=== PATIENT | female | born 1980 | race Caucasian/White ===

== ENCOUNTER 2022-06-21 12:10 | Emergency (ER) | payer OTHER, SELFPAY ==
[2022-06-21 12:33] VITALS: BP 139/90; PULSE 90; RESP 16; TEMP 36.3; O2SAT 98
--- NOTE | 2022-06-21 14:40 | ED.URI ---
HPI - URI/Sore Throat General Chief Complaint: Upper Respiratory Infection Stated Complaint: head throat nausea fatigued Time Seen by Provider: 06/21/22 14:40 Source: patient, RN notes reviewed and old records reviewed Mode of arrival: ambulatory Limitations: no limitations History of Present Illness HPI Narrative: 41 year old female who presents to [facility] with complaints of headache, nausea, fatigue, and sore throat which started this morning with generalized body aches. Patient reports that she has had COVID vaccinations and also flu shot. Patient denies any known fevers, chills or sweats, denies any shortness of breath. Patient reports that she has taken Tylenol for her symptoms. Patient also reports that she will need a work note. MD elicited complaint: sore throat and other (headache, nausea, fatigue) Onset (ago): day(s) (this morning) Pain scale (0-10): 6 Able to tolerate fluids by mouth: Yes Treatments prior to arrival: acetaminophen Related Data Home Medications Medication Instructions Recorded Confirmed esomeprazole magnesium 20 mg 20 mg PO DAILY 06/21/22 06/21/22 capsule,delayed release (Nexium) metformin 500 mg tablet,extended 100 mg PO BID 06/21/22 06/21/22 release 24 hr valsartan 160 mg tablet 160 mg PO DAILY 06/21/22 06/21/22 Allergies Allergy/AdvReac Type Severity Reaction Status Date / Time cephalexin Allergy Unknown Rash Verified 06/21/22 14:13 codeine Allergy Unknown Swelling Verified 06/21/22 14:13 Sulfa (Sulfonamide Allergy Unknown Dyspnea / Verified 06/21/22 14:13 Antibiotics) SOB floxacin Allergy Unknown Dyspnea / Uncoded 06/21/22 14:13 SOB Review of Systems Review of Systems: CONSTITUTIONAL: Denies fever, chills, or sweats. EYES: Denies visual changes, redness, or discharge. ENT: Denies rhinorrhea, congestion,positive for sore throat, no otalgia. CARDIOVASCULAR: Denies chest pain, palpitations, or edema. RESPIRATORY: Denies cough or dyspnea. GASTROINTESTINAL: Denies abdominal pain,positive for nausea, no vomiting, or diarrhea. GENITOURINARY: Denies dysuria or hematuria. SKIN: Denies rash or itching. MUSCULOSKELETAL: Denies back pain, joint pain, reports myalgia NEUROLOGIC: Reports headache,no numbness, or weakness. PSYCHIATRIC: Denies anxiety or depression. All systems reviewed & are unremarkable except as noted in HPI and below PMFSH Past Medical History Medical History (Updated 06/26/22 @ 15:53 by Gaby Vargas NP) Arthritis Boils COVID-03 August 2021 Diabetes GERD (gastroesophageal reflux disease) Hypertension Surgical History Surgical History (Updated 06/26/22 @ 15:53 by Gaby Vargas NP) H/O arthroscopic knee surgery Social History Social History (Updated 06/26/22 @ 15:51 by Gaby Vargas NP) Smoking packs per day: 0.75 Smoking cigarettes per day: 15.0 Years smoked: 30 Smoking pack-years: 22.50 Smoking status: Current every day smoker Tobacco type: cigarettes Alcohol intake: unknown Substance use type: does not use Gender identity (if verbalized by the patient): Female Comments At time of signature, agree with nursing past medical, surgical, social and family history. There is no relevant family history pertinent to the presenting complaint Exam Narrative: GENERAL: Well-appearing, well-nourished, and in no acute distress. HEAD: Normocephalic, atraumatic. EYES: PERRLA and EOMI. ENT: Nares clear, clear rhinorrhea no epistaxis. Mucous membranes moist.TM's normal with good light reflex, throat red with no lesions or exudates or tonsil swelling, post nasal drainage noted. NECK: Supple.no lymphadenopathy CHEST: Clear to auscultation. No respiratory distress.SAO2 98% on room air HEART: Regular rate and rhythm. No murmur heard. Normal peripheral pulses. ABDOMEN: Soft, nontender, nondistended, normal active bowel sounds. EXTREMITIES: Normal range of motion. No edema. SKIN: Warm, dry, no rash. NEURO: No focal deficits. Filiberto
== END 2022-06-21 15:10 | disposition home or self-care (01) ==
PROVIDERS: Emergency Provider Registered Nurse; PCP Nurse Practitioner Family
DX: J06.9 Acute upper respiratory infection, unspecified (principal); R11.0 Nausea; I10 Essential (primary) hypertension; K21.9 Gastro-esophageal reflux disease without esophagitis; M19.90 Unspecified osteoarthritis, unspecified site; E11.9 Type 2 diabetes mellitus without complications; Z86.16 Personal history of COVID-19
CPT/HCPCS: 87081; 87804; 99213; G0463

== ENCOUNTER 2023-04-03 09:56 | Emergency (ER) | payer OTHER, SELFPAY ==
--- NOTE | ~2023-04-03 | XR_ITS ---
EXAMINATION: XR hand LT min 3V INDICATION: Left hand pain TECHNIQUE: Three views of the left hand are obtained. COMPARISON: None available FINDINGS: Bone alignment is normal. There is no fracture. There is moderate osteoarthritis at the fir st carpometacarpal joint. The soft tissues are unremarkable. IMPRESSION: 1. No acute osseous abnormality. Reviewed, dictated and finalized at location L.
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
[2023-04-03 10:04] VITALS: BP 139/98; PULSE 89; RESP 20; TEMP 36.7; O2SAT 98
== END 2023-04-03 10:46 | disposition home or self-care (01) ==
PROVIDERS: Emergency Provider Nurse Practitioner; PCP Nurse Practitioner Family
DX: S63.617A Unspecified sprain of left little finger, initial encounter (principal); Y04.8XXA Assault by other bodily force, initial encounter; Y99.0 Civilian activity done for income or pay; M19.90 Unspecified osteoarthritis, unspecified site; E11.9 Type 2 diabetes mellitus without complications; K21.9 Gastro-esophageal reflux disease without esophagitis; I10 Essential (primary) hypertension; Z86.16 Personal history of COVID-19
CPT/HCPCS: 29130; 73130; 99213; G0463

== ENCOUNTER 2024-02-14 10:17 | Outpatient (CLI) | payer OTHER, SELFPAY | END 2024-02-14 10:18 | disposition home or self-care (01) | LOC: ANHBWCAUD 10:17 | PROVIDERS: PCP Nurse Practitioner Family; Visit Provider Nurse Practitioner Family | DX: H93.13 Tinnitus, bilateral (principal); H90.3 Sensorineural hearing loss, bilateral | CPT/HCPCS: 92557; 92567 ==

== ENCOUNTER 2024-10-12 15:04 | Emergency (ER) | payer OTHER, SELFPAY ==
--- OUTSIDE RECORDS SUMMARY | 2024-10-12 15:07 | XMS_ITS | Data Portability ---
Author Organization NILESH LUCIANOLuz Marina Tobias Address [address] [place] [address] Care Team Providers Care Vice President Process Name Role Phone LAVERN, ARGENIS Primary Care Provider [phone] Assessment Encounter Date Assessment Date Assessment LastModified by Organization Details LastModified Time 04/18/2022 04/18/2022 Ms. Silva presented in office today for f/u appointment. The patient states she went to [facility] on [facility]/12/22 with a dislocated left knee. 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 Patient states she returned to work in a wheelchair on April 14 due to her inability to bear weight. The patient states she was referred to ortho by the ER doctor but has yet to see them. The patient is requesting a note to return to full duty at work. To return to full duty, the patient was informed that she would need to be cleared by an geospatial specialist. The patient expressed her understanding. [email or web address] Not available 04/21/2022 14:25:51 07/25/2022 07/25/2022 Ms. Silva presented in office today for f/u appointment. Patient c/o cough, head and chest congestion x 1 week. Patient states she has not been tested for COVID or FLU. Not available 07/25/2022 14:13:07 02/02/2023 02/02/2023 Ms Silva presented in office today for f/u appointment. The patient has a number of complaints, including uti symptoms, bilateral hand pain, and difficulties sleeping. Not available 02/02/2023 15:12:11 11/15/2023 11/15/2023 Ms. Silva presented in office today for follow up appointment. The patient complained of ringing in both ears. Not available 11/27/2023 15:13:12 06/30/2024 06/30/2024 Ms. Silva presents for a follow-up visit with complaints of a persistent rash on the left side of her back for the past 6 months. She reports that the rash is itchy and occasionally arauz. The rash appears as red, patchy areas. The patient denies any known triggers or recent changes in skincare products, detergents, or medications. No associated systemic symptoms such as fever, chills, or fatigue are reported. She has tried adcp-abm-yptmgg r creams with minimal relief. No history of similar rashes elsewhere on the body. No recent travel, insect bites, or exposure to new environments. Not available 07/07/2024 07:56:23 Plan of Treatment Reminders Order Date Submit Date Provider Last Modified By Organization Details Last Modified Time Details Appointments ANY 15 2024 03:45P Amanda PUCKETT NP Not available Not available Not available Lab HbA1c (hemoglo bin A1c), blood 2023 024 [email or web address] [facility], [address] [facility], [facility] [address], [place], [address], 12/07/2023 08:40:44 CMP, serum or plasma 2023 024 FRANCOISE [facility], [address] [facility], [facility], [place], [address], 11/16/2023 07:13:50 lipid panel, serum 2023 024 FRANCOISE [facility], [address] [facility], [address], [place], [address], 11/16/2023 07:13:49 culture, urine 2022 023 FRANCOISE [facility], [address] [facility], [address], [place], [address], 02/04/2023 06:41:22 urinalys is, dipstick 2022 023 FRANCOISE In-Office Order, Internal Use Only DO Not Attach Compendium DO Not Attach Compendium, Do Not Delete/merge, [id number] 02/02/2023 15:14:44 lipid panel, serum 2022 023 FRANCOISE [facility], [address] [facility], [facility], [place], [address], 02/03/2023 03:10:02 HbA1c (hemoglo bin A1c), blood 2022 023 FRANCOISE In-Office Order, Internal Use Only DO Not Attach Compendium DO Not Attach Compendium, Do Not Delete/merge, [id number] 02/02/2023 15:04:16 CMP, serum or plasma 2022 023 FRANCOISE [facility], [address] [facility], [facility], [place], [address], 02/03/2023 03:10:03 HbA1c (hemoglo bin A1c), blood 2022 023 FRANCOISE In-Office Order, Internal Use Only DO Not Attach Compendium DO Not Attach Compendium, Do Not Delete/merge, [id number] 07/25/2022 11:52:44 rapid flu (A+B) 2022 023 FRANCOISE In-Office Order, Internal Use Only DO Not Attach Compendium DO Not Attach Compendium, Do Not Delete/merge, [id number] 07/25/2022 12:34:05 rapid SARS CoV 2 Ag, QL IA, respirat ory specimen 2022 023 FRANCOISE In-Office Order, Internal Use Only DO Not Attach Compendium DO Not Attach Compendium, Do Not Delete/merge, [id number] 07/25/2022 12:34:23 HbA1c (hemoglo bin A1c), blood 2021 022 FRANCOISE In-Office Order, Internal Use Only DO Not Attach Compendium DO Not Attach Compendium, Do Not Delete/merge, [id number] 04/18/2022 12:09:08 Referral dermatol ogist referral 2023 024 FRANCOISE Arreola MD (Dermatology) , [address] [facility] [address], [facility] [address], [place], [address], 10/09/2024 04:09:[address] referral - colonosc opy 2023 024 [email or web address] [place], [address] [facility] , [facility] [address], [place], [address], 07/29/2024 15:05:05 otolaryn gologist referral 2023 024 devan Manuel DO, [address] [facility] , Medical Office [facility], [address], [place], [address], 04/30/2024 11:41:04 audiolog ist referral 2023 024 [facility] (Audiology), [address] [facility] [address], [place], [address], 02/14/2024 12:46:33 endocrin ology referral 2022 023 [place], [address] [facility], [place], [address], 03/12/2023 11:05:12 Procedures None recorded . Surgeries None recorded . Imaging MAMMO, screenin g, digital, bilatera l 2023 024 [email or web address] [facility] (Radiology), [address] [facility] [place], [address], 09/24/2024 10:35:24 XR, hand, 3 or more view 2022 023 [facility], [address] [facility] [place], [address], 02/06/2023 07:30:57 Medication Orders triamcin olone acetonid e 0.1 % topical cream 2023 024 [facility], [address] [place], [address], 06/30/2024 17:30:41 valsarta n 320 mg tablet 2023 024 [facility], [address] [place], [address], 06/30/2024 17:22:26 valsarta n 320 mg tablet 2023 024 [facility], [address] [place], [address], 11/15/2023 16:31:29 atorvast atin 40 mg tablet [address]23 [email or web address] [facility] [address] [place], [address], 11/19/2023 11:30:17 nicotine 21 mg/24 hr daily transder mal patch 2022 [facility]23 [facility] [address] [place], [address], 11/15/2023 15:58:28 hydroxyz ine HCl 50 mg tablet 2022 023 [facility] [address] [place], [address], 11/15/2023 15:58:00 atorvast atin 40 mg tablet 2022 023 [facility] [address] [place], [address], 02/02/2023 15:29:55 Rybelsus 3 mg tablet 2022 023 [facility] [address] [place], [address], 11/15/2023 15:58:49 metformi n ER 500 mg tablet,e xtended release 24 hr 2022 023 [facility] [address] [place], [address], 11/15/2023 15:58:20 valsarta n 320 mg tablet 2022 023 [facility] [address] [place], [address], 02/02/2023 14:54:32 metformi n ER 500 mg tablet,e xtended release 24 hr 2021 022 [facility] [address] [place], [address], 11/15/2023 15:58:20 Januvia 100 mg tablet 2021 022 [facility] [address] [place], [address], 04/21/2022 21:37:57 Patient TargetsNo targets recorded. Patient Instructions Encounter Date Encounter Id Patient Instructions Last Modified By Organization Details Last Modified Time 04/18/2022 [id number] A healthy lifestyle: care instructions Not available 04/21/2022 14:37:12 - Always present to ER or Urgent Care with any progression of/alarming symptoms, significant changes in symptoms or any concerning or urgent matters Not available 04/18/2022 14:15:50 07/25/2022 [id number] viral respirator y infection: care instructions Not available 07/25/2022 11:38:25 - Always present to ER or Urgent Care with any progression of/alarming symptoms, significant changes in symptoms or any concerning or urgent matters Not available 07/25/2022 11:35:57 02/02/2023 [id number] A healthy lifestyle: care instructions Not available 02/02/2023 14:56:41 - Always present to ER or Urgent Care with any progression of/alarming symptoms, significant changes in symptoms or any concerning or urgent matters Not available 02/02/2023 14:34:58 11/15/2023 [id number] A healthy lifestyle: care instructions Not available 11/15/2023 16:32:03 - Always present to ER or Urgent Care with any progression of/alarming symptoms, significant changes in symptoms or any concerning or urgent matters Not available 11/15/2023 16:16:12 06/30/2024 [id number] A healthy lifestyle: care instructions Not available 06/30/2024 17:30:39 - Always present to ER or Urgent Care with any progression of/alarming symptoms, significant changes in symptoms or any concerning or urgent matters Not available 07/07/2024 07:51:32 Reason for Referral Endocrinology Referral for U ncontrolled type 2 diabetes mellitus Referring Physician: Argenis Puckett [facility], Encounter Date: 02/02/2023 Shaper Operator Referral fo r Bilateral tinnitus Referring Physician: Argenis Puckett [facility], Encounter Date: 11/15/2023 Dean Of Admissions Referral for Mao ateral tinnitus Referring Physician: Argenis Puckett [facility], Encounter Date: 11/15/2023 Director Title Referral for Screening for malignant neoplasm of colon colonoscopy Referring Physician: Argenis Puckett [facility], Encounter Date: 06/30/2024 Principal Clerk Typist Referral for L ocalized eruption of skin Referring Physician: Argenis Puckett [facility], Encounter Date: 06/30/2024 Results Created Date Observation Date Name Description Value Unit Range Abnormal Flag Note LastModifiedBy Organization Detail LastModifiedTime 04/18/20 22 04/18/2022 HbA1c (hemo globi n A1c), blood HbA1c 9.6 Not Available In-Office Order Internal Use Only DO Not Attach Compendium DO Not Attach Compendium, Do Not Delete/merge, [id number] 04/18/2022 11:51:49 07/25/19 23 07/25/2022 rapid SARS CoV 2 Ag, QL IA, respi rator y speci men rapid SARS CoV 2 Ag, QL IA, respiratory specimen negati ve Not Available In-Office Order Internal Use Only DO Not Attach Compendium DO Not Attach Compendium, Do Not Delete/merge, [id number] 07/25/2022 11:50:31 07/25/19 23 07/25/2022 rapid flu (A+B) Flu A negati ve Not Available In-Office Order Internal Use Only DO Not Attach Compendium DO Not Attach Compendium, Do Not Delete/merge, [id number] 07/25/2022 11:50:27 07/25/19 23 07/25/2022 rapid flu (A+B) Flu B negati ve Not Available In-Office Order Internal Use Only DO Not Attach Compendium DO Not Attach Compendium, Do Not Delete/merge, [id number] 07/25/2022 11:50:27 07/25/19 23 07/25/2022 HbA1c (hemo globi n A1c), blood HbA1c 10.1 Not Available In-Office Order Internal Use Only DO Not Attach Compendium DO Not Attach Compendium, Do Not Delete/merge, [id number] 07/25/2022 11:21:24 02/03/20 23 02/02/2023 LIPID PANEL cholesterol, total 298.7 mg/dL 140.0- 200.0 above high normal Not Available [facility] Department [address] [place], [address], 02/03/2023 03:10:02 02/03/20 23 02/02/2023 LIPID PANEL triglyceride s 547 mg/dL <=150 above high normal Not Available [facility] Department [address] [place], [address], 02/03/2023 03:10:02 02/03/20 23 02/02/2023 LIPID PANEL HDL cholesterol 29.3 mg/dL 40.0-1 00.0 below low normal Not Available [facility] Department [address] [place], [address], 02/03/2023 03:10:02 02/03/20 23 02/02/2023 LIPID PANEL VLDL cholesterol ivan 109.40 mg/dL 5.00-4 0.00 above high normal Not Available [facility] Department [address] [place], [address], 02/03/2023 03:10:02 02/03/20 23 02/02/2023 LIPID PANEL LDL chol calc ([facility]) 161.3 mg/dL 0.0-99 .0 above high normal Not Available [facility] Department [address] [place], [address], 02/03/2023 03:10:02 02/03/20 23 02/04/2023 URINE CULTU RE, ROUTI NE urine culture, routine Final report Not Available [facility] ([facility]) [address] [facility], [place], [address], 02/04/2023 06:41:22 02/03/20 23 02/04/2023 URINE CULTU RE, ROUTI NE result 1 Commen t Cultu re shows less than 10,00 0 colon y formi ng units of bacte janelle per carola liter of urine . This colon y count is not gener ally consi dered to be clini kenzie signi fican t. Not Available [facility] ([facility]) [address] [facility], [place], [address], 02/04/2023 06:41:22 02/03/20 23 02/02/2023 COMP. METAB OLIC PANEL (14) glucose 215 mg/dL 65-99 above high normal ANION GP 18.0 mmol/ L N OSMOL 277.0 mOsM/ L N REFER ENCE RANGE : 275.0 -301. 0 Not Available [facility] Department [address] [place], [address], 02/03/2023 03:10:03 02/03/20 23 02/02/2023 COMP. METAB OLIC PANEL (14) BUN 15 mg/dL 8-26 Not Available [facility] Department [address] [place], [address], 02/03/2023 03:10:03 02/03/20 23 02/02/2023 COMP. METAB OLIC PANEL (14) creatinine 0.71 mg/dL 0.50-1 .40 Not Available [facility] Department [address] [place], [address], 02/03/2023 03:10:03 02/03/20 23 02/02/2023 COMP. METAB OLIC PANEL (14) eGFR 107 mL/mi n/1.7 3 >=60 Not Available [facility] Department [address] [place], [address], 02/03/2023 03:10:03 02/03/20 23 02/02/2023 COMP. METAB OLIC PANEL (14) BUN/creatini ne ratio 21.0 Not Available [facility] Department [address] [place], [address], 02/03/2023 03:10:03 02/03/20 23 02/02/2023 COMP. METAB OLIC PANEL (14) sodium 135.0 mmol/ L 136.0- 144.0 below low normal Not Available [facility] Department [address] [place], [address], 02/03/2023 03:10:03 02/03/20 23 02/02/2023 COMP. METAB OLIC PANEL (14) potassium 4.3 mmol/ L 3.5-5. 3 Not Available [facility] Department [address] [place], [address], 02/03/2023 03:10:03 02/03/20 23 02/02/2023 COMP. METAB OLIC PANEL (14) chloride 99 mmol/ l 101-11 1 below low normal Not Available [facility] Department [address] [place], [address], 02/03/2023 03:10:03 02/03/20 23 02/02/2023 COMP. METAB OLIC PANEL (14) carbon dioxide, total 21.8 mmol/ L 21.0-3 2.0 Not Available [facility] Department [address] [place] [address], [address], 02/03/2023 03:10:03 02/03/20 23 02/02/2023 COMP. METAB OLIC PANEL (14) calcium 9.7 mg/dL 8.2-10 .0 Not Available [facility] Department [address] [place], [address], 02/03/2023 03:10:03 02/03/20 23 02/02/2023 COMP. METAB OLIC PANEL (14) protein, total 7.4 g/dL 6.7-8. 2 Not Available [facility] Department [address] [place], [address], 02/03/2023 03:10:03 02/03/20 23 02/02/2023 COMP. METAB OLIC PANEL (14) albumin 4.4 g/dL 3.5-5. 5 Not Available [facility] Department [address] [place], [address], 02/03/2023 03:10:03 02/03/20 23 02/02/2023 COMP. METAB OLIC PANEL (14) globulin, total 3.0 g/dL 1.5-4. 5 Not Available [facility] Department [address] [place], [address], 02/03/2023 03:10:03 02/03/20 23 02/02/2023 COMP. METAB OLIC PANEL (14) A/G ratio 1.0 Not Available [facility] Department [address] [place], [address], 02/03/2023 03:10:03 02/03/20 23 02/02/2023 COMP. METAB OLIC PANEL (14) bilirubin, total 0.2 mg/dL 0.0-1. 2 Not Available [facility] Department [address] [place], [address], 02/03/2023 03:10:03 02/03/20 23 02/02/2023 COMP. METAB OLIC PANEL (14) alkaline phosphatase 111.4 IU/L 42.0-1 21.0 Not Available [facility] Department [address] [place], [address], 02/03/2023 03:10:03 02/03/20 23 02/02/2023 COMP. METAB OLIC PANEL (14) AST (SGOT) 34.6 U/L 10.0-4 2.0 Not Available [facility] Department [address] [place], [address], 02/03/2023 03:10:03 02/03/20 23 02/02/2023 COMP. METAB OLIC PANEL (14) ALT (SGPT) 93.3 U/L 10.0-6 0.0 above high normal Not Available [facility] Department [address] [place], [address], 02/03/2023 03:10:03 02/03/20 23 02/02/2023 urina lysis , dipst ick Leukocytes Negati ve Not Available In-Office Order Internal Use Only DO Not Attach Compendium DO Not Attach Compendium, Do Not Delete/merge, 02/02/2023 14:35:16 02/03/20 23 02/02/2023 urina lysis , dipst ick Nitrite negati ve Not Available In-Office Order Internal Use Only DO Not Attach Compendium DO Not Attach Compendium, Do Not Delete/merge, 02/02/2023 14:35:16 02/03/20 23 02/02/2023 urina lysis , dipst ick Urobilinogen 1 Not Available In-Of fice Order Internal Use Only DO Not Attach Compendium DO Not Attach Compendium, Do Not Delete/merge, 02/02/2023 14:35:16 02/03/20 23 02/02/2023 urina lysis , dipst ick Protein Negati ve Not Available In-Office Order Internal Use Only DO Not Attach Compendium DO Not Attach Compendium, Do Not Delete/merge, 02/02/2023 14:35:16 02/03/20 23 02/02/2023 urina lysis , dipst ick pH 6.0 Not Available In-Office Order Internal Use Only DO Not Attach Compendium DO Not Attach Compendium, Do Not Delete/merge, 02/02/2023 14:35:16 02/03/20 23 02/02/2023 urina lysis , dipst ick Blood Negati ve Not Available In-Office Order Internal Use Only DO Not Attach Compendium DO Not Attach Compendium, Do Not Delete/merge, 02/02/2023 14:35:16 02/03/20 23 02/02/2023 urina lysis , dipst ick Specific [place] 1.025 Not Available In-Off ice Order Internal Use Only DO Not Attach Compendium DO Not Attach Compendium, Do Not Delete/merge, 02/02/2023 14:35:16 02/03/20 23 02/02/2023 urina lysis , dipst ick Ketone Trace Not Available In-Office Order Internal Use Only DO Not Attach Compendium DO Not Attach Compendium, Do Not Delete/merge, 02/02/2023 14:35:16 02/03/20 23 02/02/2023 urina lysis , dipst ick Bilirubin Negati ve Not Available In-Office Order Internal Use Only DO Not Attach Compendium DO Not Attach Compendium, Do Not Delete/merge, 02/02/2023 14:35:16 02/03/20 23 02/02/2023 urina lysis , dipst ick Glucose 1000 Not Available In-Office Order Internal Use Only DO Not Attach Compendium DO Not Attach Compendium, Do Not Delete/merge, 02/02/2023 14:35:16 02/03/20 23 02/02/2023 urina lysis , dipst ick Appearance Slight ly Cloudy Not Available In-Office Order Internal Use Only DO Not Attach Compendium DO Not Attach Compendium, Do Not Delete/merge, 02/02/2023 14:35:16 02/03/20 23 02/02/2023 urina lysis , dipst ick Color Dark Yellow Not Available In-Office Order Internal Use Only DO Not Attach Compendium DO Not Attach Compendium, Do Not Delete/merge, [id number] 02/02/2023 14:35:16 02/03/20 23 02/02/2023 HbA1c (hemo globi n A1c), blood HbA1c 10.9 Not Available In-Office Order Internal Use Only DO Not Attach Compendium DO Not Attach Compendium, Do Not Delete/merge, [id number] 02/02/2023 14:30:51 11/15/19 24 11/16/2023 LIPID PANEL cholesterol, total 247 mg/dL 100-19 9 above high normal Not Available [facility] ([facility]) [address] [place], [address], 11/16/2023 07:13:49 11/15/19 24 11/16/2023 LIPID PANEL triglyceride s 398 mg/dL 0-149 above high normal Not Available [facility] ([facility]) [address] [place], [address], 11/16/2023 07:13:49 11/15/19 24 11/16/2023 LIPID PANEL HDL cholesterol 30 mg/dL >39 below low normal Not Available [facility] ([facility]) [address] [place], [address], 11/16/2023 07:13:49 11/15/19 24 11/16/2023 LIPID PANEL VLDL cholesterol ivan 74 mg/dL 5-40 above high normal Not Available [facility] ([facility]) [address] [place], [address], 11/16/2023 07:13:49 11/15/19 24 11/16/2023 LIPID PANEL LDL chol calc ([facility]) 143 mg/dL 0-99 above high normal Not Available [facility] ([facility]) [address] [place], [address], 11/16/2023 07:13:49 11/15/19 24 11/16/2023 COMP. METAB OLIC PANEL (14) glucose 108 mg/dL 70-99 above high normal Not Available [facility] ([facility]) [address] [place], [address], 11/16/2023 07:13:50 11/15/19 24 11/16/2023 COMP. METAB OLIC PANEL (14) BUN 20 mg/dL 6-24 Not Available [facility] ([facility]) [address] [facility] [place], [address], 11/16/2023 07:13:50 11/15/19 24 11/16/2023 COMP. METAB OLIC PANEL (14) creatinine 0.78 mg/dL 0.57-1 .00 Not Available [facility] ([facility]) [address] [facility] [place], [address], 11/16/2023 07:13:50 11/15/19 24 11/16/2023 COMP. METAB OLIC PANEL (14) eGFR 95 mL/mi n/1.7 3 >59 Not Available [facility] ([facility]) [address] [facility] [place], [address], 11/16/2023 07:13:50 11/15/19 24 11/16/2023 COMP. METAB OLIC PANEL (14) BUN/creatini ne ratio 26 9-23 above high normal Not Available [facility] ([facility]) [address] [facility] [place], [address], 11/16/2023 07:13:50 11/15/19 24 11/16/2023 COMP. METAB OLIC PANEL (14) sodium 141 mmol/ L 134-14 4 Not Available [facility] ([facility]) [address] [facility] [place], [address], 11/16/2023 07:13:50 11/15/19 24 11/16/2023 COMP. METAB OLIC PANEL (14) potassium 4.1 mmol/ L 3.5-5. 2 Not Available [facility] ([facility]) [address] [facility] [place], [address], 11/16/2023 07:13:50 11/15/19 24 11/16/2023 COMP. METAB OLIC PANEL (14) chloride 105 mmol/ L 96-106 Not Available [facility] ([facility]) [address] [place], [address], 11/16/2023 07:13:50 11/15/19 24 11/16/2023 COMP. METAB OLIC PANEL (14) carbon dioxide, total 21 mmol/ L 20-29 Not Available [facility] ([facility]) [address], [place], [address], 11/16/2023 07:13:50 11/15/19 24 11/16/2023 COMP. METAB OLIC PANEL (14) calcium 9.9 mg/dL 8.7-10 .2 Not Available [facility] ([facility]) [address] [place], [address], 11/16/2023 07:13:50 11/15/19 24 11/16/2023 COMP. METAB OLIC PANEL (14) protein, total 7.0 g/dL 6.0-8. 5 Not Available [facility] ([facility]) [address] [place], [address], 11/16/2023 07:13:50 11/15/19 24 11/16/2023 COMP. METAB OLIC PANEL (14) albumin 4.3 g/dL 3.9-4. 9 Not Available [facility] ([facility]) [address] [facility] [place], [address], 11/16/2023 07:13:50 11/15/19 24 11/16/2023 COMP. METAB OLIC PANEL (14) globulin, total 2.7 g/dL 1.5-4. 5 Not Available [facility] ([facility]) [address] [facility], [place], [address], 11/16/2023 07:13:50 11/15/19 24 11/16/2023 COMP. METAB OLIC PANEL (14) A/G ratio 1.6 1.2-2. 2 Not Available [facility] ([facility]) [address] [facility], [place], [address], 11/16/2023 07:13:50 11/15/19 24 11/16/2023 COMP. METAB OLIC PANEL (14) bilirubin, total <0.2 mg/dL 0.0-1. 2 Not Available [facility] ([facility]) [address] [facility], [place], [address], 11/16/2023 07:13:50 11/15/19 24 11/16/2023 COMP. METAB OLIC PANEL (14) alkaline phosphatase 95 IU/L 44-121 Not Available [facility] [address] [facility], [place], [address], 11/16/2023 07:13:50 11/15/19 24 11/16/2023 COMP. METAB OLIC PANEL (14) AST (SGOT) 17 IU/L 0-40 Not Available [facility] ([facility]) [address] [facility], [place], [address], 11/16/2023 07:13:50 11/15/19 24 11/16/2023 COMP. METAB OLIC PANEL (14) ALT (SGPT) 31 IU/L 0-32 Not Available [facility] ([facility]) [address] [facility], [place], [address], 11/16/2023 07:13:50 09/08/19 25 09/08/2024 CBC W Auto Diffe joan al panel - Blood leukocytes [#/volume] in blood by automated count 10.98 text: 4.00 - 12.00 10(3)/ mcL WBC 10.98 4.00 - 12.00 10(3) /mcL 09/08 10:34 AM PLATE MAKER ZINC [facility] Not Available Not Available 09/24/2024 10:37:47 09/08/19 25 09/08/2024 CBC W Auto Diffe renti al panel - Blood erythrocytes [#/volume] in blood by automated count 4.52 text: 3.80 - 5.30 10(6)/ mcL RBC 4.52 3.80 - 5.30 10(6) /mcL 09/08 10:34 AM [facility] Not Available Not Available 09/24/2024 10:37:47 09/08/19 25 09/08/2024 CBC W Auto Diffe renti al panel - Blood hemoglobin [mass/volume ] in blood 13.9 g/dL low: 12g/dL high: 15.8g/ dL HEMOG LOBIN (HGB) 13.9 12.0 - 15.8 g/dL 09/08 10:34 AM [facility] Not Available Not Available 09/24/2024 10:37:47 09/08/19 25 09/08/2024 CBC W Auto Diffe renti al panel - Blood hematocrit [volume fraction] of blood by automated count 39.8 % low: 36%hig h: 47% HEMAT OCRIT (HCT) 39.8 36.0 - 47.0 % 09/08 10:34 AM [facility] Not Available Not Available 09/24/2024 10:37:47 09/08/19 25 09/08/2024 CBC W Auto Diffe renti al panel - Blood MCV [entitic volume] by automated count 88.1 fL low: 82fLhi gh: 96fL MCV 88.1 82.0 - 96.0 fL 09/08 10:34 AM [facility] Not Available Not Available 09/24/2024 10:37:47 09/08/19 25 09/08/2024 CBC W Auto Diffe renti al panel - Blood MCH [entitic mass] by automated count 30.8 pg low: 26pghi gh: 34pg MCH 30.8 26.0 - 34.0 pg 09/08 10:34 AM [facility] Not Available Not Available 09/24/2024 10:37:47 09/08/19 25 09/08/2024 CBC W Auto Diffe renti al panel - Blood MCHC [mass/volume ] by automated count 34.9 g/dL low: 31g/dL high: 36g/dL MCHC 34.9 31.0 - 36.0 g/dL 09/08 10:34 AM [facility] Not Available Not Available 09/24/2024 10:37:47 09/08/19 25 09/08/2024 CBC W Auto Diffe renti al panel - Blood platelets [#/volume] in blood 343 text: 140 - 440 10(3)/ mcL PLATE LET COUNT 343 140 - 440 10(3) /mcL 09/08 10:34 AM [facility] Not Available Not Available 09/24/2024 10:37:47 09/08/19 25 09/08/2024 CBC W Auto Diffe renti al panel - Blood erythrocyte distribution width [ratio] by automated count 12.2 % low: 11.8%h igh: 15.5% RDW 12.2 11.8 - 15.5 % 09/08 10:34 AM [facility] Not Available Not Available 09/24/2024 10:37:47 09/08/19 25 09/08/2024 CBC W Auto Diffe renti al panel - Blood platelet mean volume [entitic volume] in blood by automated count 8.8 fL low: 9.7fLh igh: 12.4fL low MPV 8.8 (L) 9.7 - 12.4 fL 09/08 10:34 AM [facility] Not Available Not Available 09/24/2024 10:37:47 09/08/19 25 09/08/2024 CBC W Auto Diffe renti al panel - Blood neutrophils/ 100 leukocytes in blood by automated count 56.6 % low: 47%hig h: 73% NEUTR OPHIL S 56.6 47.0 - 73.0 % 09/08 10:34 AM [facility] Not Available Not Available 09/24/2024 10:37:47 09/08/19 25 09/08/2024 CBC W Auto Diffe renti al panel - Blood lymphocytes/ 100 leukocytes in blood by automated count 34.5 % low: 18%hig h: 42% LYMPH OCYTE S 34.5 18.0 - 42.0 % 09/08 10:34 AM [facility] Not Available Not Available 09/24/2024 10:37:47 09/08/19 25 09/08/2024 CBC W Auto Diffe renti al panel - Blood monocytes/10 0 leukocytes in blood by automated count 5.4 % low: 4%high : 12% MONOC YTES 5.4 4.0 - 12.0 % 09/08 10:34 AM [facility] Not Available Not Available 09/24/2024 10:37:47 09/08/19 25 09/08/2024 CBC W Auto Diffe renti al panel - Blood eosinophils/ 100 leukocytes in blood by automated count 2.7 % low: 0%high : 5% EOSIN OPHIL S 2.7 0.0 - 5.0 % 09/08 10:34 AM [facility] Not Available Not Available 09/24/2024 10:37:47 09/08/19 25 09/08/2024 CBC W Auto Diffe renti al panel - Blood basophils/10 0 leukocytes in blood by automated count 0.8 % low: 0%high : 1% BASOP HILS 0.8 0.0 - 1.0 % 09/08 10:34 AM [facility] Not Available Not Available 09/24/2024 10:37:47 09/08/19 25 09/08/2024 CBC W Auto Diffe renti al panel - Blood neutrophils [#/volume] in blood by automated count 6.21 text: 1.60 - 7.70 10(3)/ mcL ABSOL AGDAAGUX NEUTR OPHIL S 6.21 1.60 - 7.70 10(3) /mcL 09/08 10:34 AM [facility] Not Available Not Available 09/24/2024 10:37:47 09/08/19 25 09/08/2024 CBC W Auto Diffe renti al panel - Blood lymphocytes [#/volume] in blood by automated count 3.79 text: 1.30 - 3.20 10(3)/ mcL high ABSOL AGDAAGUX LYMPH OCYTE S 3.79 (H) 1.30 - 3.20 10(3) /mcL 09/08 10:34 AM [facility] Not Available Not Available 09/24/2024 10:37:47 09/08/19 25 09/08/2024 CBC W Auto Diffe renti al panel - Blood monocytes [#/volume] in blood by automated count 0.59 text: 0.20 - 1.00 10(3)/ mcL ABSOL AGDAAGUX MONOC YTES 0.59 0.20 - 1.00 10(3) /mcL 09/08 10:34 AM [facility] Not Available Not Available 09/24/2024 10:37:47 09/08/19 25 09/08/2024 CBC W Auto Diffe renti al panel - Blood eosinophils [#/volume] in blood by automated count 0.3 text: 0.00 - 0.40 10(3)/ mcL ABSOL AGDAAGUX EOSIN OPHIL 0.30 0.00 - 0.40 10(3) /mcL 09/08 10:34 AM [facility] Not Available Not Available 09/24/2024 10:37:47 09/08/19 25 09/08/2024 CBC W Auto Diffe renti al panel - Blood basophils [#/volume] in blood by automated count 0.09 text: 0.00 - 0.10 10(3)/ mcL ABSOL AGDAAGUX BASOP HILS 0.09 0.00 - 0.10 10(3) /mcL 09/08 10:34 AM [facility] Not Available Not Available 09/24/2024 10:37:47 09/08/19 25 09/08/2024 CBC W Auto Diffe renti al panel - Blood nucleated erythrocytes /100 leukocytes [ratio] in blood 0 NRBC PER 100 WBC 0 09/08 10:34 AM [employer] [facility] [employer] [facility] Not Available Not Available 09/24/2024 10:37:47 09/08/19 25 09/08/2024 CBC W Auto Diffe renti al panel - Blood interpretati on and review of laboratory results Abnorm al Not Available Not Available 10:37:47 09/08/19 25 09/08/2024 Lipas e [Enzy matic activ ity/v olume ] in Serum or Plasm a lipase [enzymatic activity/vol ume] in serum or plasma 26 U/L low: 8U/Lhi gh: 78U/L LIPAS E 26 8 - 78 U/L 09/08 11:13 AM [facility] [employer] [facility] Not Available Not Available 09/24/2024 10:37:47 09/08/19 25 09/08/2024 Lipas e [Enzy matic activ ity/v olume ] in Serum or Plasm a interpretati on and review of laboratory results Normal Not Available Not Available 09/13 10:37:47 09/08/19 25 09/08/2024 Compr ehens matt metab olic 1999 panel - Serum or Plasm a sodium [moles/volum e] in serum or plasma 140 mmol/ L low: 136mmo l/Lhig h: 145mmo l/L SODIU M 140 136 - 145 mmol/ L 09/08 11:13 AM [facility] [employer] [facility] Not Available Not Available 09/24/2024 10:37:47 09/08/19 25 09/08/2024 Compr ehens matt metab olic 1999 panel - Serum or Plasm a potassium [moles/volum e] in serum or plasma 3.9 mmol/ L low: 3.5mmo l/Lhig h: 5.1mmo l/L POTAS SIUM 3.9 3.5 - 5.1 mmol/ L 09/08 11:13 AM [facility] [employer] [facility] Not Available Not Available 09/24/2024 10:37:47 09/08/19 25 09/08/2024 Compr ehens matt metab olic 1999 panel - Serum or Plasm a chloride [moles/volum e] in serum or plasma 108 mmol/ L low: 98mmol /Lhigh : 107mmo l/L high CHLOR ARABELLA 108 (H) 98 - 107 mmol/ L 09/08 11:13 AM [facility] [employer] [facility] Not Available Not Available 09/24/2024 10:37:47 09/08/19 25 09/08/2024 Compr ehens matt metab olic 1999 panel - Serum or Plasm a carbon dioxide, total [moles/volum e] in serum or plasma 22 mmol/ L low: 22mmol /Lhigh : 30mmol /L CO2, VENOU S 22 22 - 30 mmol/ L 09/08 11:13 AM [facility] [employer] [facility] Not Available Not Available 09/24/2024 10:37:47 09/08/19 25 09/08/2024 Compr ehens matt metab olic 2000 panel - Serum or Plasm a anion gap in serum or plasma 13.9 mmol/ L high: 18mmol /L ANION GAP 13.9 <18.0 mmol/ L 09/08 11:13 AM [facility] [employer] [facility] Not Available Not Available 09/24/2024 10:37:47 09/08/19 25 09/08/2024 Compr ehens matt metab olic 1999 panel - Serum or Plasm a glucose [mass/volume ] in serum or plasma 165 mg/dL low: 70mg/d Lhigh: 99mg/d L high GLUCO SE 165 (H) 70 - 99 mg/dL 09/08 11:13 AM [facility] [employer] [facility] Not Available Not Available 09/24/2024 10:37:47 09/08/19 25 09/08/2024 Compr ehens matt metab olic 2000 panel - Serum or Plasm a urea nitrogen [mass/volume ] in serum or plasma 16 mg/dL low: 5mg/dL high: 18mg/d L BUN 16 5 - 18 mg/dL 09/08 11:13 AM [facility] Not Available Not Available 09/24/2024 10:37:47 09/08/19 25 09/08/2024 Compr ehens matt metab olic 2000 panel - Serum or Plasm a creatinine [mass/volume ] in serum or plasma 0.82 mg/dL low: 0.6mg/ dLhigh : 1mg/dL CREAT ININE , BLOOD 0.82 0.60 - 1.00 mg/dL 09/08 11:13 AM [facility] Not Available Not Available 09/24/2024 10:37:47 09/08/19 25 09/08/2024 Compr ehens matt metab olic 2000 panel - Serum or Plasm a urea nitrogen/cre atinine [mass ratio] in serum or plasma 20 text: 12 - 20 ratio BUN/C REATI NINE RATIO 20 12 - 20 ratio 09/08 11:13 AM [facility] Not Available Not Available 09/24/2024 10:37:47 09/08/19 25 09/08/2024 Compr ehens matt metab olic 1999 panel - Serum or Plasm a protein [mass/volume ] in serum or plasma 7.2 g/dL low: 6g/dLh igh: 8g/dL TOTAL PROTE IN 7.2 6.0 - 8.0 g/dL 09/08 11:13 AM [facility] Not Available Not Available 09/24/2024 10:37:47 09/08/19 25 09/08/2024 Compr ehens matt metab olic 1999 panel - Serum or Plasm a albumin [mass/volume ] in serum or plasma 3.7 g/dL low: 3.5g/d Lhigh: 5g/dL ALBUM IN 3.7 3.5 - 5.0 g/dL 09/08 11:13 AM [facility] Not Available Not Available 09/24/2024 10:37:47 09/08/19 25 09/08/2024 Compr ehens matt metab olic 2000 panel - Serum or Plasm a albumin/glob ulin [mass ratio] in serum or plasma 1.1 low: 1high: 2.2 A/G RATIO 1.1 1.0 - 2.2 09/08 11:13 AM [facility] [employer] [facility] [facility] Not Available Not Available 09/24/2024 10:37:47 09/08/19 25 09/08/2024 Compr [facility] 1999 panel - Serum or Plasm a calcium [mass/volume ] in serum or plasma 9 mg/dL low: 8.7mg/ dLhigh : 10.5mg /dL CALCI UM 9.0 8.7 - 10.5 mg/dL 09/08 11:13 AM [facility] [employer] Not Available Not Available 09/24/2024 10:37:47 09/08/19 25 09/08/2024 Compr WHObyYOU matt Tagged [facility] 1999 panel - Serum or Plasm a bilirubin.to karma [mass/volume ] in serum or plasma 0.3 mg/dL low: 0.2mg/ dLhigh : 1.2mg/ dL T BILI 0.3 0.2 - 1.2 mg/dL 09/08 11:13 AM [facility] Not Available Not Available 09/24/2024 10:37:47 09/08/19 25 09/08/2024 [facility] 1999 panel - Serum or Plasm a aspartate aminotransfe rase [enzymatic activity/vol ume] in serum or plasma 25 U/L high: 43U/L SGOT (AST) 25 <43 U/L 09/08 11:13 AM [facility] Not Available Not Available 09/24/2024 10:37:47 09/08/19 25 09/08/2024 Compr [employer] matt Tagged olic 2000 panel - Serum or Plasm a alanine aminotransfe rase [enzymatic activity/vol ume] in serum or plasma 35 U/L high: 56U/L SGPT (ALT) 35 <56 U/L 09/08 11:13 AM [facility] Not Available Not Available 09/24/2024 10:37:47 09/08/19 25 09/08/2024 Compr ehens matt metab olic 1999 panel - Serum or Plasm a alkaline phosphatase [enzymatic activity/vol ume] in serum or plasma 79 U/L low: 40U/Lh igh: 150U/L ALKAL INE PHOSP HATAS E 79 40 - 150 U/L 09/08 11:13 AM [facility] Not Available Not Available 09/24/2024 10:37:47 09/08/19 25 09/08/2024 Compr ehens matt metab olic 1999 panel - Serum or Plasm a glomerular filtration rate/1.73 sq M.predicted among non-blacks [volume rate/area] in serum, plasma or blood by creatinine-b ased formula (MDRD) low: 60 GFR, ESTIM ATED >60 >=60 09/08 11:13 AM PLATE [employer]KER ZINC [facility] [employer] [facility] LAB Not Available Not Available 09/24/2024 10:37:47 09/08/19 25 09/08/2024 Compr ehens matt metab olic 1999 panel - Serum or Plasm a glomerular filtration rate/1.73 sq M.predicted among blacks [volume rate/area] in serum, plasma or blood by creatinine-b ased formula (MDRD) low: 60 GFR, EST. AFRIC AN >60 >=60 09/08 11:13 AM PLATE MA[employer]ER ZINC [facility] [facility] LAB Not Available Not Available 09/24/2024 10:37:47 09/08/19 25 09/08/2024 Compr ehens matt metab olic 2000 panel - Serum or Plasm a glomerular filtration rate/1.73 sq M.predicted among non-blacks [volume rate/area] in serum, plasma or blood by creatinine-b ased formula (MDRD) low: 60 GFR, EST. NONAF RICAN >60 >=60 09/08 11:13 AM PL[facility] MAK[employer] ZINC [facility] Not Available Not Available 09/24/2024 10:37:47 09/08/19 25 09/08/2024 Compr ehens matt metab olic 1999 panel - Serum or Plasm a interpretati on and review of laboratory results Abnorm al Not Available Not Available 10:37:47 02/07/20 23 02/05/2023 XR, hand, 3 or more view No observ ation record ed. [email or web address] [facility] [address], [place], [address], 03/22/2023 08:59:53 04/04/20 23 04/03/2023 XR, hand, 3 or more view No observ ation record ed. [facility] [address], [place], [address], 04/04/2023 13:36:43 Result Notes None recorded. Problems Name Problem SNOMED Code Status Onset Date Resolution Date Notes Provider Name and Address Organization Details Recorded Time Right upper quadrant pain 414612114 Active 2017 VIKI QUIROS NP Attn: Daphne garnica,[address] [place], [address], [place] [facility] 8 18:01:25 Elevated blood-pre ssure reading without diagnosis of hypertens ion 917381226 Completed 201711/17/2019 ARGENIS PUCKETT NP Attn: Daphne garnica,[address] [place], [address], [place] [facility] 0 13:14:51 Gastroeso phageal reflux disease without esophagit is 543559864 Active 2017 ARGENIS PUCKETT NP Attn: Daphne garnica,[address] [place], [address], [place] [facility] 2 14:07:55 Morbid obesity 269351552 Active 2017 VIKI QUIROS NP Attn: Daphne garnica,[address] [place], [address], [place] [facility] 8 18:01:29 Tobacco user 332232442 Active 2017 ARGENIS PUCKETT NP Attn: Daphne garnica,[address] [place], [address], [place] [facility] 2 14:07:55 Dysmenorr hea 970693529 Active 2018 Brian [place] [facility] 9 16:34:31 History of endometri al ablation 251613931664 107 Active 2018 Brian [place] [facility] 9 16:34:33 Endometri osis of uterus 76313014 Active 2018 [place] [facility] 9 16:34:35 History of female steriliza tion 898283832 Active 2018 Brian good[place] [facility] 9 16:34:39 Essential hypertens ion 71185141 Active 2019 ARGENIS PUCKETT NP Attn: Daphne garnica,[address] [place], [address], [place] [facility] 2 14:07:55 Vitamin D deficienc y 60347055 Active 2019 ARGENIS PUCKETT NP Attn: Daphne garnica,[address] [place], [address], [place] [facility] 0 13:18:30 Hyperlipi demia 44335164 Active 2019 ARGENIS PUCKETT NP Attn: Daphne garnica,[address] [place], [address], [place] [facility] 2 14:07:55 Newly diagnosed diabetes 003484063 Completed 201908/02/2020 ARGENIS PUCKETT NP Attn: Daphne garnica,[address] [place], [address], [place] [facility] 1 10:41:12 Newly diagnosed diabetes 297801788 Completed 202002/08/2021 ARGENIS PUCKETT NP Attn: Daphne garnica,[address] [place], [address], [place] [facility] 1 10:41:12 Uncontrol led type 2 diabetes mellitus 484785401 Active 2020 ARGENIS PUCKETT NP Attn: Daphne danika,[address] [facility], [place], [address], [place] [facility] 2 14:07:55 Dislocati on of patellofe moral joint 949203318 Active 2021 ARGENIS PUCKETT NP Attn: Daphne danika,[address] [facility], [place], [address], [place] [facility] 2 14:31:54 Insomnia 227203429 Active 2022 ARGENIS PUCKETT NP Attn: Daphne danika,[address] [facility], [place], [address], [place] [facility] 3 15:34:29 Pain of bilateral hands 601074172339 89390 Active 2022 ARGENIS PUCKETT NP Attn: Daphne danika,[address] [facility], [place], [address], [place] [facility] 3 15:34:31 Obesity 541449576 Active 2022 ARGENIS PUCKETT NP Attn: Daphne danika,[address] [facility], [place], [address], [place] [facility] 3 15:34:32 Osteoarth ritis 541386840 Active 2022 ARGENIS PUCKETT NP Attn: Daphne danika,[address] [facility], [place], [address], [place] [facility] 3 09:32:07 Localized eruption of skin 509076004 Active 2023 ARGENIS PUCKETT NP Attn: Daphne danika,[address] [facility], [place], [address], [place] [facility] 4 17:40:35 Problem Notes None recorded. Procedures Surgical History Date Name Laterality Status Provider Name and Address Organization Details Recorded Time 04/21/20 21 ULTRASOUND GUIDED CORE BIOPSY (SURG) completed KOBY WATKINS Attn: Accounting,[address] [facility], [place], [address], [facility] 04/24/2021 16:26:22 09/06/19 19 TOTAL LAPAROSCOPIC HYSTERECTOMY, ROBOTIC ASSISTED [facility] 10:50:15 12/22/19 18 HYSTEROSCOPY, WITH ENDOMETRIAL ABLATION (SURG) completed Brian Pearson [place] - [place] 01/03/2018 14:33:35 10/25/19 18 Date of Last Pap Smear completed Dinora [place] 11/19/2017 08:21:15 11/14/19 05 Tubal Ligation completed Dinora [place] 10/24/2017 08:36:08 Imaging Results Imaging Date Name Status LastModified by Organiz ation Details LastModified Time 02/05/2023 XR, hand, 3 or more view completed [email or web address] [facility] [address], [address], 03/22/2023 08:59:53 04/03/2023 XR, hand, 3 or more view completed [facility] [address], [place], [address], 04/04/2023 13:36:43 Procedure Notes None recorded. Medical Equipment None Reported. Allergies Allergen ID Allergen Name Allergen Category Reaction Reaction Severity Criticality Documentation Date Start Date Code Code System Note Provider Name and Address Organization Details Recorded Time 440356 Substance with sulfonami de structure and antibacte rial mechanism of action (substanc e) medicatio n edema severe Not available 10/04/2017 15235 8003 SNOMED Not Available Not Available Not Available [id number] Floxin medicatio n hives severe Not available 10/04/201746439 8 RxNorm Not Available Not Available Not Available 697601 Keflex medicatio n anaphylax is severe Not available 10/04/201723226 7 RxNorm Not Available Not Available Not Available 788233 codeine medicatio n Not available Not available Not available 10/24/2017 2670 RxNorm Not Available Not Available Not Available 391848 Dilaudid medicatio n Not available Not available Not available 07/25/2022 60002 3 RxNorm Not Available Not Available Not Available Medications Name Sig Start Date Stop Date Status Note LastModified by Organization Details LastModified Time losartan 50 mg tablet Take 1 tablet every day by oral route. 03/15 completed Not Available Not Available Not Available cyclobenz aprine 10 mg tablet TAKE 1 TABLET BY MOUTH THREE TIMES A DAY NEEDED 04/18 completed Not Available Not Available Not Available amoxicill in 500 mg capsule TAKE 1 CAPSULE BY MOUTH 3 TIMES A DAY 06/30 completed Not Available Not Available Not Available atorvasta tin 40 mg tablet PLEASE SEE ATTACHED FOR DETAILED DIRECTIO NS active Not Available Not Available No t Available metformin 500 mg tablet Take 2 tablets twice a day by oral route for 30 days. 04/06 completed n/v/d Not Available Not Available Not Available atorvasta tin 20 mg tablet Take 1 tablet every day by oral route in the evening. 11/12 completed patient stated she has'nt taken in over 2 years Not Available Not Available Not Available clindamyc in HCl 300 mg capsule 08/20 completed Not Available Not Available Not Available ibuprofen 800 mg tablet TAKE 1 TABLET BY MOUTH EVERY 8 HOURS NEEDED 06/30 completed Not Available Not Available Not Available hydrocodo ne 5 mg-acetam inophen 325 mg tablet 08/20 completed Not Available Not Available Not Available valsartan 80 mg tablet TAKE 1 TABLET BY MOUTH EVERY DAY 03/15 completed Not Available Not Available Not Available metronida zole 500 mg tablet 08/20 completed Not Available Not Available Not Available hydroxyzi ne HCl 50 mg tablet TAKE 1 TABLET BY MOUTH EVERY DAY AT BEDTIME FOR 30 DAYS 11/14 completed Not Available Not Available Not Available hydrocodo ne 10 mg-acetam inophen 325 mg tablet 11/12 completed Not Available Not Available Not Available triamcino lone acetonide 0.1 % topical cream APPLY A THIN LAYER TO THE AFFECTED AREA(S) BY TOPICAL ROUTE 2 TIMES PER DAY active Not Available Not Available No t Available glimepiri de 1 mg tablet Take 1 tablet twice a day by oral route for 90 days. 08/16 completed Pt does not take. Pt states this Rx makes her vomit repeated ly Not Available Not Available Not Available ketorolac 10 mg tablet Take 1 tablet every 6 hours by oral route for 5 days. 11/12 completed Not Available Not Available Not Available Nexium 20 mg capsule,d elayed release Take 1 capsule every day by oral route. 11/14 completed OTC Not Available Not Available Not Available oxycodone -acetamin ophen 5 mg-325 mg tablet 11/12 completed Not Available Not Available Not Available estradiol 1 mg tablet TAKE 1 TABLET BY MOUTH EVERY DAY active Not Available Not Available No t Available dicyclomi ne 20 mg tablet PLEASE SEE ATTACHED FOR DETAILED DIRECTIO NS 11/14 completed Not Available Not Available Not Available doxycycli ne monohydra te 100 mg capsule TAKE 1 CAPSULE BY MOUTH TWICE A DAY 02/08 completed Not Available Not Available Not Available hydrocodo ne 7.5 mg-acetam inophen 325 mg tablet TAKE 1 TO 2 TABLETS BY MOUTH EVERY 4 TO 6 HOURS NEEDED FOR PAIN 02/02 completed Not Available Not Available Not Available prednison e 50 mg tablet 09/19 completed Not Available Not Available Not Available valsartan 320 mg tablet Take 1 tablet every day by oral route for 30 days. 2023 active Not Available Not Available Not Avai lable nicotine 21 mg/24 hr daily transderm al patch APPLY 1 PATCH DAILY TO SKIN 11/14 completed Not Available Not Available Not Available diclofena c sodium 50 mg tablet,de layed release 11/12 completed Not Available Not Available Not Available norethind leti acetate 5 mg tablet Take 1 tablet every day by oral route. 09/19 completed Not Available Not Available Not Available ergocalci ferol (vitamin D2) 1,250 mcg (50,000 unit) capsule TAKE 1 CAPSULE BY MOUTH ONE TIME PER WEEK 02/08 completed Not Available Not Available Not Available levofloxa fernando 500 mg tablet TAKE 1 TABLET BY MOUTH EVERY DAY FOR 7 DAYS 11/14 completed Not Available Not Available Not Available albuterol sulfate HFA 90 mcg/actua tion aerosol inhaler TAKE 2 PUFFS BY MOUTH EVERY 4 TO 6 HOURS active Not Available Not Available No t Available ondansetr on 4 mg disintegr ating tablet TAKE 1 TO 2 TABLETS (4 TO 8 MG TOTAL) BY MOUTH EVERY 8 HOURS NEEDED FOR NAUSEA AND VOMITING 11/14 completed Not Available Not Available Not Available fluticaso ne propionat e 50 mcg/actua tion nasal spray,sara pension INSTILL 2 SPRAYS IN EACH NOSTRIL TWICE A DAY 02/08 completed Not Available Not Available Not Available metformin ER 500 mg tablet,ex tended release 24 hr TAKE 2 TABLETS BY MOUTH TWICE A DAY 11/14 completed Not Available Not Available Not Available loratadin e 10 mg tablet TAKE 1 TABLET BY MOUTH EVERY DAY 02/08 completed Not Available Not Available Not Available oxycodone 5 mg tablet 04/18 completed Not Available Not Available Not Available valsartan 160 mg tablet TAKE 1 TABLET BY MOUTH EVERY DAY, NEEDS TO SCHEDULE APPOINTM ENT WITH PCP BEFORE NEXT REFILL active Not Available Not Available No t Available IBU PRN 10/24 completed Not Available Not Available Not Available sucralfat e 11/12 completed Not Available Not Available Not Available Prilosec 20mg 1-2 QD 10/24 completed Not Available Not Available Not Available Nexium 11/12 completed Not Available Not Available Not Available BD Ultra-Fin e Short Pen Needle 31 gauge x 5/16 USE TO INJECT 1-4 TIMES DAILY DIRECTED . active Not Available Not Available No t Available cholecalc iferol (vitamin D3) 1,250 mcg (50,000 unit) capsule Take 1 capsule every week by oral route. 11/12 completed Not Available Not Available Not Available ferrous sulfate 324 mg (65 mg iron) tablet,de layed release 11/12 completed Not Available Not Available Not Available Lantus Solostar U-100 Insulin 100 unit/mL (3 mL) subcutane ous pen INJECT 20 UNITS TOTAL UNDER THE SKIN ONCE NIGHTLY active Not Available Not Available No t Available Tradjenta 5 mg tablet Take 1 tablet every day by oral route for 90 days. 02/02 completed Not Available Not Available Not Available OneTouch Verio test strips CHECK BLOOD SUGAR 3 TIMES DAILY active Not Available Not Available No t Available aloglipti n 25 mg tablet active Not Available Not Available Not Available OneTouch Verio Flex Meter CHECK BLOOD SUGAR THREE TIMES DAILY active Not Available Not Available No t Available Orilissa 150 mg tablet TAKE 1 TABLET BY MOUTH EVERY DAY 03/15 completed Not Available Not Available Not Available Ozempic 0.25 mg or 0.5 mg (2 mg/3 mL) subcutane ous pen injector INJECT 0.5MG UNDER THE SKIN EVERY 7 DAYS active Not Available Not Available No t Available Vitals Date Recorded Body height Body mass index (BMI) Body weight Respiratory rate Body temperature Heart rate Oxygen saturation Oxygen saturation in Arterial blood by Pulse oximetry Systolic blood pressure Diastolic blood pressure Provider Name and Address Organization Details Last Updated DateTime 2 162.56 cm 40.9 kg/m2 282195. 08 g 16 /min 96.8 [degF] 106 /min 96 % 96 % 120 mm[Hg] 80 mm[Hg] Charito [facility] 2 11:40:15 Date Recorded Body height Body mass index (BMI) Body weight Oxygen saturation Oxygen saturation in Arterial blood by Pulse oximetry Heart rate Respiratory rate Body temperature Systolic blood pressure Diastolic blood pressure Provider Name and Address Organization Details Last Updated DateTime 3 162.56 cm 40.4 kg/m2 350680. 31 g 95 % 95 % 87 /min 16 /min 97 [degF] 126 mm[Hg] 78 mm[Hg] Rubi Phan LPN [place] - [facility] 3 11:13:28 Date Recorded Body height Respiratory rate Body mass index (BMI) Body weight Systolic blood pressure Diastolic blood pressure Provider Name and Address Organization Details Last Updated DateTime 3 162.56 cm 16 /min 39.1 kg/m2 248713. 41 g 138 mm[Hg] 89 mm[Hg] Charito [facility] 3 14:25:45 Date Recorded Body height Respiratory rate Body mass index (BMI) Body weight Body temperature Heart rate Oxygen saturation Oxygen saturation in Arterial blood by Pulse oximetry Systolic blood pressure Diastolic blood pressure Provider Name and Address Organization Details Last Updated DateTime 4 162.56 cm 16 /min 38.1 kg/m2 381431. 91 g 96.9 [degF] 86 /min 96 % 96 % 134 mm[Hg] 91 mm[Hg] Charito Ambrocio MA [place] - [facility] 4 16:05:18 Date Recorded Body height Body mass index (BMI) Body weight Body temperature Respiratory rate Heart rate Oxygen saturation Oxygen saturation in Arterial blood by Pulse oximetry Systolic blood pressure Diastolic blood pressure Provider Name and Address Organization Details Last Updated DateTime 4 162.56 cm 36.3 kg/m2 29755.4 3 g 97.1 [degF] 16 /min 73 /min 96 % 96 % 146 mm[Hg] 92 mm[Hg] Janette Torres MA [place] - [facility] 4 17:06:52 Social History Question Answer Notes LastModified by Organizat ion Details LastModified Time Tobacco Smoking Status Current Every Day Smoker Chaya Evangelista MA [facility], [place] - [facility] 10/04/2017 17:17:50 Do You Have An Advance Directive? No Information not available 02/08/2021 What Is Your Level Of Alcohol Consumption? None Information not available 10/24/2017 Are You Blind Or Do You Have Difficulty Seeing? No Information not available 02/08/2021 Is Blood Transfusion Acceptable In An Emergency? Yes Information not available 10/24/2017 What Is Your Level Of Caffeine Consumption? Moderate Information not available 06/30/2024 How Much Tobacco Do You Chew? None Information not available 10/24/2017 In The 14 Days Before Symptom Onset, Have You Had Close Contact With A Laboratory-confi rmed COVID-19 While That Case Was Ill? No Information not available 02/08/2021 In The 14 Days Before Symptom Onset, Have You Had Close Contact With A Person Who Is Under Investigation For COVID-19 While That Person Was Ill? No Information not available 02/08/2021 Have You Been To An Area Known To Be High Risk For COVID-19? No Information not available 02/08/2021 Are You Currently Employed? Yes Information not available 10/24/2017 Are You Deaf Or Do You Have Serious Difficulty Hearing? No Has Ringing In Both Ears Information not available 02/08/2021 What Type Of Diet Are You Following? REGULAR Restricted Information not available 06/30/2024 Which Illicit Or Recreational Drugs Have You Used? Denies Information not available 10/24/2017 Do You Or Have You Ever Used E-cigarettes Or Vape? Never Used Electronic Cigarettes Information not available 02/26/2020 What Is Your Occupation? [employer] Information not available 12/20/2017 Are There Any Guns Present In Your Home? No Information not available 02/08/2021 Live Alone Or With Others? With Others Information not available 10/24/2017 Do You Have A High School Diploma Or Higher Education? No Information not available 02/08/2021 Do You Sometimes Have To Miss Your Medical Appointments Due To Difficult Getting Transportation? No Information not available 02/08/2021 Do You Feel Unfairly Treated Due To Things Such As Race, Age, Gender, Disability Or Some Other Reason? No Information not available 02/08/2021 Do You Feel Physically And Emotionally Safe While Living At Home? Yes Information not available 02/08/2021 Do You Feel Physically And Emotionally Safe In Your Neighborhood Or Other Public Places? Yes Information not available 02/08/2021 What Was The Date Of Your Most Recent Tobacco Screening? 06/30/2024 Information not available 06/30/2024 How Many Children Do You Have? 3 Information not available 10/24/2017 What Is Your Current Pack Years? 30ormorepacky ears Information not available 03/08/2021 Performs Monthly Self-breast Exam? Yes Information not available 10/24/2017 Do You Use Protection During Sex? No Information not available 10/24/2017 What Is Your Relationship Status? Single Partner For 18 Years Information not available 02/08/2021 Do You Use Your Seat Belt Or Car Seat Routinely? Yes Information not available 02/08/2021 Seat Belts Used Routinely Yes Information not available 10/24/2017 Are You Sexually Active? Yes Information not available 10/24/2017 Do You Have Smoke And Carbon Monoxide Detectors In Your Home? Yes Information not available 02/08/2021 At What Age Did You Start Smoking Tobacco? 6 Information not available 10/24/2017 Are You Passively Exposed To Smoke? Yes Information not available 02/08/2021 Do You Or Have You Ever Used Smokeless Tobacco? Never Used Smokeless Tobacco Information not available 02/26/2020 How Much Tobacco Do You Smoke? 1 PPD 1-1.5 Information not available 06/28/2020 General Stress Level Medium Med-high Information not available 11/11/2019 Do You Feel Stressed (tense, Restless, Nervous, Or Anxious, Or Unable To Sleep At Night)? [id number] Information not available 02/08/2021 Do You Use Any Illicit Or Recreational Drugs? No Information not available 02/08/2021 Do You Use Sunscreen Routinely? Yes Information not available 10/24/2017 Has Tobacco Cessation Counseling Been Provided? Yes Information not available 03/08/2021 On What Date Was Tobacco Cessation Counseling Provided? 06/30/2024 Information not available 06/30/2024 How Many Years Have You Smoked Tobacco? 31 Information not available 10/24/2017 Do You Or Have You Ever Used Any Other Forms Of Tobacco Or Nicotine? No Information not available 03/08/2021 Sex: Female Functional Status Question Answer Note LastModified by Organization D etails LastModified Time Are you able to care for yourself? Yes Information not available 02/08/2021 What is your exercise level? Moderate Information not available 10/24/2017 Mental Status None recorded. Family History Relationship Description Onset Age of this Age Resolved Age Notes LastModified by Organization Details LastModified Time Father Alcohol abuse [email or web address] Not available 09/14 17:14:49 Father Depressive disorder [email or web address] Not available 09/14 17:15:14 Father Diabetes mellitus [email or web address] Not available 09/14 17:15:30 Father Heart disease [email or web address] Not available 09/14 17:16:03 Father Hypertensive disorder [email or web address] Not available 09/14 17:16:11 Father Hypercholest erolemia ccampbellma Not available 09/14 17:16:27 Mother Asthma [email or web address] Not availabl e 10/04/2017 17:14:58 Mother Diabetes mellitus [email or web address] Not available 09/14 17:15:36 Mother Disorder of thyroid gland [email or web address] Not available 09/14 17:15:53 Mother Hypertensive disorder [email or web address] Not available 09/14 17:16:19 Mother Hypercholest erolemia ccampbellma Not available 09/14 17:16:35 Mother Osteoporosis [email or web address] Not av ailable 10/04/2017 17:16:49 Mother Malignant neoplasm of uterus 33 [email or web address] Not available 10/14 08:46:22 Brother Depressive disorder [email or web address] Not available 09/14 17:15:08 Sister Depressive disorder [email or web address] Not available 09/14 17:15:20 Paternal Grandmother Hypertensive disorder [place] Not available 2017 08:31:31 Paternal Grandmother Cerebrovascu lar accident [place] Not available 05/2018 08:32:05 Paternal Grandmother Diabetes mellitus [place] Not available 2017 08:33:10 Paternal Grandmother Hypercholest erolemia [place] Not available 2017 08:33:31 Maternal Grandfather Hypertensive disorder [place] Not available 2017 08:31:38 Maternal Grandfather Hypercholest erolemia [place] Not available 2017 08:33:37 Maternal Grandmother Hypertensive disorder [place] Not available 2017 08:31:43 Maternal Grandmother Cerebrovascu lar accident [place] Not available 05/2018 08:32:05 Maternal Grandmother Malignant neoplasm of uterus 35 78 [email or web address] Not available 10/14 08:48:07 Maternal Grandmother Hypercholest erolemia [place] Not available 2017 08:33:42 Maternal Grandmother Osteoporosis [place] Not available 10/24/2017 08:33:55 Paternal Grandfather Hypercholest erolemia [place] Not available 2017 08:33:26 Medical History Condition Response Coronary Artery Disease N Other N High Blood Pressure N Atrial Fibrillation N Breast Cancer N Depression Y COPD N Blood Clots N Lung Disease N Breast Problem Y Anesthesia Complications N Headaches/Migraines Y Anxiety Disorder N Muscle, Joint, or Bone Problems N Infertility N Polyps N Acid Reflux (GERD) Y Cancer N Stroke N Endometriosis N High Cholesterol Y Liver Disease N Headaches Y Kidney or Bladder Problems N Thyroid Problems N GI Problems Y Acne Y Eating Disorder N Skin Problems N Anemia N Heart Attack ([place]) N Ovarian Cancer N Diabetes N Blood Transfusions N Seizures/Epilepsy N Abuse/Domestic Violence N Asthma N Allergies N Hepatitis N Heart Disease N Pre-Eclampsia N Osteoporosis N Heart Failure N Gynecological History Statement/Question Response Abnormal Pap N Date of Last Mammogram On BCP's at Conception? N STIs/STDs N HPV Vaccine Age at Menarche 6 Current Control Method Hysterectom y Age at First Child 17 Sexually Active? Y Menses Monthly N Date of Last Pap Smear 10/24/2017 Sexual Problems? Y LMP Definite Desired Control Method Hysterectom y Obstetrics History GPAL:G 3 P 3 0 0 3 Type Value Multiple Births 0 Full Term 3 Induced 0 Spontaneous 0 Premature 0 Living 3 Ectopics 0 Total 3 Immunizations Vaccine Type Date Status Note Provider Nam e and Address Organization Details Recorded Time COVID-19, mRNA, LNP-S, PF, 100 mcg/0.5mL dose or 50 mcg/0.25mL dose 1 completed ARGENIS PUCKETT NP Attn: [address]ing,[address] [place], [place], [address] [place] [address], [place] - [facility] 07/25/2022 11:20:26 COVID-19, mRNA, LNP-S, PF, 100 mcg/0.5mL dose or 50 mcg/0.25mL dose 1 completed ARGENIS PUCKETT NP Attn: [employer]ing,[address] [place], [place], [address] [place] [address], [place] [facility] 07/25/2022 11:20:26 Influenza, split virus, trivalent, PF 4 completed ARGENIS PUCKETT NP Attn: [employer]ing,[address] [place], [address] [place] [address], [place] [facility] 07/25/2022 11:20:26 Influenza, MDCK, quadrivalent, PF 2 completed ARGENIS PUCKETT NP Attn: Accounting,[address] [place], [address], [place] [facility] 07/25/2022 11:20:26 COVID-19, mRNA, LNP-S, PF, 50 mcg/0.5 mL 4 completed ARGEINS PUCKETT NP Attn: Accounting,[address] [facility], [place], [address], [place] [facility] 06/30/2024 17:18:26 Influenza, split virus, trivalent, PF 4 completed ARGENIS PUCKETT NP Attn: Accounting,[address] [facility], [place], [address], [place] [facility] 06/30/2024 17:18:26 Influenza, split virus, quadrivalent, preservative 9 completed Not Available [facility] 08/02/2019 02:40:53 Tdap 0 completed ESME [place], [place] [facility] 03/15/2020 11:28:42 pneumococcal polysaccharide PPV23 0 completed ES[place] [facility] 03/29/2020 16:57:02 tetanus toxoid, unspecified formulation 6 completed Chaya Evangelista [place], [place] [facility] 10/04/2017 17:18:32 Past Encounters Encounter ID Performer Location Encounter Start Date Encounter Closed Date Diagnosis/Indication Diagnosis SNOMED-CT Code Diagnosis ICD10 Code Diagnosis Note [id number] VIKI QUIROS NP [facility] [address] [place] [address] 10/04/2017 16:58:06 10/05/2017 16:09:33 Right upper quadrant pain 337111179 R10.11 Adult [facility] th examination 681328114 Z00.00 Tobacco user 920356195 Z 72.0 Elevated blood-pressure reading without diagnosis of hypertension 189697560 R03.0 Gastroesop hageal reflux disease without esophagitis 231134625 K21.9 Morbid obesity 190956979 E66.01 [id number] [facility] Evangelista [facility] [address] [place] [address] 10/05/2017 10:43:43 10/05/2017 16:26:15 Adult health examination 922614236 Z00.00 Right uppe r quadrant pain 472139531 R10.11 [id number] VIKI QUIROS NP [facility] [address] [place] [address] 10/11/2017 18:25:00 10/12/2017 10:49:51 Vitamin D deficiency 00044267 E56.8 Prediabetes 831838824 R7 3.03 Mixed hyperlipidemia 267 909569 E78.2 [id number] Kirti Fernando ([employer]) [address] [place] [address] 10/24/2017 08:14:54 10/26/2017 15:03:30 Gynecologic examination 70258099 Z01.411 Last pap 2006. Pap done. Venereal d isease screening 108040291 Z11.3 HIV and Hep C just tested by PCP. RTO one week for results. Adnexal tenderness 49956 3002 R10.2 Pt. with c/o pelvic pain with periods x 10 years. Some periods light and some look like a murder scene but they come at the same time each month. Mother and MGM diagnosed with endometria l CA in their 30s. Exam limited by body habitus. US ordered. Smoker 60509186 F17.200 Pt. using smoking as a stress reliever for multiple family issues. She does not feel she can even attempt to cut down at this time. Body mass index 40+ - severely obese 220282830 Z68.42 Nutrition and exercise discussed. Pt. states she does exercise more than 30 min daily. [id number] Kirti Fernando ([employer]) [address] [place] [address] 11/19/2017 08:12:07 11/21/2017 15:53:32 Polyp of corpus uteri 35121459 N84.0 US showed an ecogenic focus in the endometriu m which appears heterogene ous. Recommenda tion made for hysterosco py with D&C. Procedure explained to pt. Pt. agreeable. Will schedule. [id number] Kirti WEST ([employer]) [address] [place] [address] 12/06/2017 08:46:16 12/06/2017 10:27:24 Polyp of corpus uteri 11357095 N84.0 Benefits, risks, and alternativ es to hysterosco py with dilation and curettage d/w pt. Pt. expressed understand ing. All pt. questions answered. Operation scheduled. [id number] Brian Umana ([employer]) [address] [place] [address] 12/20/2017 09:50:43 12/20/2017 12:13:34 Polyp of corpus uteri 40023939 N84.0 Menorrhagia 367916853 N9 2.0 Dysmenorrhea 091685339 N 94.6 Taking Ibuprofen. Held for surgery. [id number] Brian Umana ([employer]) [address] [place] [address] 01/03/2018 14:01:10 01/03/2018 15:09:15 Postoperative visit 667897880 Z09 Reassured patient that 3-4 weeks of bloody, brown discharge and pelvic pain is normal postop finding due to necrotic tissue passing.Re commended to use a hydrogen peroxide to cleanse vaginal discharge. Morbid obesity 001735177 E66.01 Tobacco user 488596547 Z 72.0 [id number] ESME Tran ([employer]) [address] [place] [address] 08/20/2018 15:15:40 08/21/2018 11:22:09 Screening mammography 75570534 Z12.31 Administra tion of influenza vaccine 38414067 Z23 Dysmenorrhea 514191010 N 94.6 Family cindy nning surveillance 780088381 Z30.09 History of endometrial ablation 9838114833 57962 Z98.890 Endometrio sis of uterus 86390059 N80.0 Pt desires surgery. Needs second opinion. Offered medical treatment for pain History of female sterilization 722715591 Z92.0 Morbid obesity 258333903 E66.01 [id number] Brian Umana ([employer]) [address] [place] [address] 09/19/2018 10:04:58 09/19/2018 13:05:12 Tobacco user 083043437 Z72.0 Morbid obesity 383703476 E66.01 Gastroesop hageal reflux disease without esophagitis 665202202 K21.9 History of female sterilization 207769181 Z92.0 Postoperative visit 1836 77595 Z09 performed on 09/06/18 History of hysterectomy 552637698 Z90.711 performed on 09/06/18. Pathology benign [id number] ARGENIS PUCKETT NP [facility] [address] [place] [address] 11/11/2019 12:21:59 11/12/2019 13:33:43 Tobacco user 069093120 Z72.0 - Patient is a current cigarette smoker, states she smokes 1-1.5 pk per day and currently has no desire to quit.- Patient advised in the derogatory effects of smoking- Counseling for smoking cessation completed Adult [facility] examination 659542253 Z00.00 - Discussed plan of care including treatment options, risks, and benefits with patients.- Patient expressed understand ing.- The following interventi ons were recommende d: heart healthy low-fat, low-sodium diet, ideal body weight, regular exercise, medication s compliance , and medical follow-up as noted. [id number] ARGENIS PUCKETT NP [facility] [address] [place] [address] 11/13/2019 09:49:29 11/13/2019 15:11:38 Tobacco user 188667681 Z72.0 - Patient is a current cigarette smoker, states she smokes 1-1.5 pk per day and currently has no desire to quit.- Patient advised in the derogatory effects of smoking- Counseling for smoking cessation completed Essential hypertension 12714617 I10 - b/p in office today 142/108 - Educated on risks factors, healthy lifestyle, and smoking cessation. Discussed importance of lifestyle modificati ons (2GM Na+ diet) and handouts provided. - The patient was instructed to keep a log of the BP and send the list to me for review. The patient was to vary the times of the BP and brian down the times they take their medication s. I gave guidelines on reasons to call sooner than scheduled and potential changes in the meds with their potential issues. - Patient initiated on Losartan and educated patient on possible side-effec ts. - RTC in 1 month (till reach goal) then q 3-6 months. - Patient expresses understand ing. Morbid obesity 647443269 E66.01 - d/w patient importance of implementi ng some sort of exercise regimen at least 20-30 minutes activity/d ay, watching her diet and eating breakfast as this has shown to be most effective for nursing home maintenanc e of weight loss. In the meantime, will check thyroid function and follow up as needed. [id number] ARGENIS PUCKETT NP [facility] [address] [place] [address] 02/26/2020 16:21:21 02/27/2020 06:29:02 Essential hypertension 35027338 I10 - Continue medication as prescribed and diet/exerc ise as previously discussed. - Take occasional BP s, call if consistent ly >140/90.- Discussed with patient need to come in to office for further evaluation of blood pressure- Discussed reasons for sooner f/u than 2 weeks. - Patient verbalizes understand ing. Tobacco user 101059494 Z 72.0 - Patient is a current cigarette smoker, states she smokes 1-1.5 pk per day and currently has no desire to quit.- Patient advised in the derogatory effects of smoking- Counseling for smoking cessation completed Prediabetes 112069225 R7 3.03 - A1c 8.0 on 11/12- Patient agreed to come in for an in office visit on 03/15- will repeat A1c [id number] Radha Drake [facility] [address] [place] [address] 03/15/2020 10:24:23 03/16/2020 06:10:41 Essential hypertension 01004356 I10 - b/p in office today 132/98- Continue medication as prescribed and diet/exerc ise as previously discussed. - Take occasional BP s, call if consistent ly >140/90. - Discussed reasons for sooner f/u than 2 weeks. - Patient verbalizes understand ing. Tobacco user 048814339 Z 72.0 - Patient is a current cigarette smoker, states she smokes 1.5- 2 pk per day and currently has no desire to quit.- Patient advised in the derogatory effects of smoking- Counseling for smoking cessation completed Morbid obesity 894387855 E66.01 - d/w patient importance of implementi ng some sort of exercise regimen at least 20-30 minutes activity/d ay, watching her diet and eating breakfast as this has shown to be most effective for manager long term care maintenanc e of weight loss. In the meantime, will check thyroid function and follow up as needed. Hyperlipidemia 93554313 E78.5 - Educated on risks factors, and healthy lifestyle. - Handout provided on lifestyle modificati ons .- Continue statin as prescribed , possible side-effec ts discussed with patient.- RTC in 4 months Administra tion of diphtheria, pertussis, and tetanus vaccine 608855689 Z23 - recommende d Tdap vaccinatio n Prediabetes 842457574 R7 3.03 - A1c 8.0 on 11/12- Patient agreed to come in for an in office visit on 03/15- will repeat A1c 10.4 Dyspnea on exertion 6084 5006 R06.09 - Patient with c/o shortness of breath with exertion Newly diag nosed diabetes 952481158 E10.9 - A1c 10.4 - Start Metformin - Educated on goal of blood sugars (A1C of < 7% and fasting of 80-130) and informatio n below. Postprandi al BG of less than 180. - Encouraged weight loss and diet changes. - Monitor BP with goal of <130/80. - Stop smoking. - Continue statin and next level due {{3 months 6 months * 1 year}} - Eye exam yearly and dentist regularly. - Next A1C due {{ 1 month 2 months 3 months * 6 months}} - RTC or call if blood sugars not controlled . - Check feet daily and notify PCP immediatel y of abnormalit y. - F/U in {{1 week 2 weeks 1 month 3 months * 6 months }} [id number] ARGENIS PUCKETT NP [facility] [address] [place] [address] 03/29/2020 15:56:08 03/30/2020 05:56:32 Essential hypertension 71755502 I10 - b/p in office today 124/90- Continue medication as prescribed and diet/exerc ise as previously discussed. - Take occasional BP s, call if consistent ly >140/90. - Discussed reasons for sooner f/u than 3 months. - Patient verbalizes understand ing. Tobacco user 934063399 Z 72.0 - Patient is a current cigarette smoker, states she smokes 1.5- 2 pk per day and currently has no desire to quit.- Patient advised in the derogatory effects of smoking- Counseling for smoking cessation completed Administra tion of pneumococcal vaccine 91289305 Z23 - recommende d annual pneumococc al vaccinatio n Newly diag nosed diabetes [id number] E10.9 - A1c 10.4 - Increased metformin - Educated on goal of blood sugars (A1C of < 7% and fasting of 80-130) and informatio n below. Postprandi al BG of less than 180. - Encouraged weight loss and diet changes. - Monitor BP with goal of <130/80. - Stop smoking. - Continue statin and next level due {{3 months 6 months * 1 year}} - Eye exam yearly and dentist regularly. - Next A1C due {{ 1 month 2 months 3 months * 6 months}} - RTC or call if blood sugars not controlled . - Check feet daily and notify PCP immediatel y of abnormalit y. - F/U in {{1 week 2 weeks 1 month 3 months * 6 months }} [id number] ARGENIS PUCKETT NP [facility] [address] [place] [address] 06/28/2020 16:13:52 06/29/2020 16:24:08 Candidiasis of vagina 99268361 B37.3 - Take your medicines exactly as prescribed - Do not scratch. Relieve itching with a cold pack or a cool bath- Do not have sex until you have finished your treatment- RTC if you are not getting better after 2 days, or your symptoms return after finishing your medication Essential hypertension 66964893 I10 - Continue medication as prescribed and diet/exerc ise as previously discussed. - Take occasional BP s, call if consistent ly >140/90. - Discussed reasons for sooner f/u than 3 months. - Patient verbalizes understand ing. Uncontroll ed type 2 diabetes mellitus [id number] E11.65 - Educated on goal of blood sugars (A1C of 7% and fasting of 80-130) and informatio n below. Postprandi al BG of less than 180. - Encouraged weight loss and diet changes. - Monitor BP with goal of <130/80. - Stop smoking. - Continue statin and next level due {{1 month# 3 months 6 months 1 year}} - Eye exam yearly and dentist regularly. - Next A1C due {{ 1 month * 2 months 3 months 6 months}} - RTC or call if blood sugars not controlled . - Check feet daily and notify PCP immediatel y of abnormalit y. - F/U in {{1 week 2 weeks 1 month * 3 months 6 months }} [id number] ARGENIS PUCKETT NP [facility] [address] [place] [address] 02/08/2021 10:06:56 02/09/2021 18:52:43 Essential hypertension 44859508 I10 - b/p in office today 108/72- Continue medication as prescribed and diet/exerc ise as previously discussed. - Take occasional BP s, call if consistent ly >140/90.- Discussed reasons for sooner f/u than 6 months.- Patient verbalizes understand ing. Hyperlipidemia 28281534 E78.5 - Educated on risks factors, and healthy lifestyle. - Handout provided on lifestyle modificati ons .- Continue statin as prescribed , possible side-effec ts discussed with patient.- RTC in 4 months Uncontroll ed type 2 diabetes mellitus 381956209 E11.65 - Educated on goal of blood sugars (A1C of 7% and fasting of 80-130) and informatio n below. Postprandi al BG of less than 180. - Encouraged weight loss and diet changes. - Monitor BP with goal of <130/80. - Stop smoking. - Continue statin and next level due {{3 months 6 months* 1 year}} - Eye exam yearly and dentist regularly. - Next A1C due {{1 month 2 months 3 months 6 months 4 month #}} - RTC or call if blood sugars not controlled . - Check feet daily and notify PCP immediatel y of abnormalit y. - F/U in {{1 week 2 weeks 1 month 3 months 6 months 4 month #}} Tobacco user [id number] Z 72.0 - Patient is a current cigarette smoker, states she smokes 1.5 pk per day and currently has no desire to quit.- Patient advised in the derogatory effects of smoking- Counseling for smoking cessation completed Positive s creening for depression on PHQ-9 (Patient Health Questionnaire 9) [id number] 12953 Z13.89 - Discussed symptoms of depression /anxiety as well as the different treatment types.- Pt is to monitor symptoms and RTC sooner if symptoms are worsening or not improving. [id number] KOBY WATKINS (DOME[employer]IC [employer]DR[employer] WORK[employer]) [address] [place] [address] 03/08/2021 09:40:04 03/16/2021 14:20:31 Mass of right breast [id number] N63.10 Small 0.5cm mass palpated at 8 o'clock position lateral to R areola. Mobile, non-tender . No mammogram in the past. Will proceed w/ diagnostic mammogram and US if needed. [id number] MARY FRIEND 14 IM [address] [facility] [address] [place] [phone] 08/16/2021 08:07:01 08/29/2021 14:10:09 Essential hypertension 96139064 I10 - last recorded b/p 126/76 on 02/16/21- Continue medication as prescribed and diet/exerc ise as previously discussed. - Take occasional BP s, call if consistent ly >140/90.- Discussed reasons for sooner f/u than 6 months.- Patient verbalizes understand ing. Uncontroll ed type 2 diabetes mellitus 430081271 E11.65 - Educated on goal of blood sugars (A1C of 7% and fasting of 80-130) and informatio n below. Postprandi al BG of less than 180. - Encouraged weight loss and diet changes. - Monitor BP with goal of <130/80. - Stop smoking. - Continue statin and next level due {{3 months 6 months* 1 year}} - Eye exam yearly and dentist regularly. - Next A1C due {{1 month 2 months 3 months 6 months 4 month #}} - RTC or call if blood sugars not controlled . - Check feet daily and notify PCP immediatel y of abnormalit y. - F/U in {{1 week 2 weeks 1 month 3 months 6 months 4 month #}} [id number] ARGENIS PUCKETT NP [facility] [address] [place] [address] 04/18/2022 11:13:21 04/24/2022 11:01:50 Essential hypertension 64408912 I10 - b/p in office today 120/80- Continue medication as prescribed and diet/exerc ise as previously discussed. - Take occasional BP s, call if consistent ly >140/90.- Discussed reasons for sooner f/u than 6 months.- Patient verbalizes understand ing. Uncontroll ed type 2 diabetes mellitus 609704889 E11.65 - Educated on goal of blood sugars (A1C of 7% and fasting of 80-130) and informatio n below. Postprandi al BG of less than 180. - Encouraged weight loss and diet changes. - Monitor BP with goal of <130/80. - Stop smoking. - Continue statin and next level due {{3 months 6 months* 1 year}} - Eye exam yearly and dentist regularly. - Next A1C due {{1 month 2 months 3 months* 6 months}} - RTC or call if blood sugars not controlled . - Check feet daily and notify PCP immediatel y of abnormalit y. - F/U in {{1 week 2 weeks 1 month 3 months* 6 months}} Tobacco user [id number] Z 72.0 - Patient is a current cigarette smoker, states she smokes 1.5 pk per day and currently has no desire to quit.- Patient advised in the derogatory effects of smoking- Counseling for smoking cessation completed Dislocatio n of patellofemoral joint [id number] S83.005A - Per patient seen in ER for dislocated left knee on 04/12. Currently non weight bearing Referred to ortho by ER provider. Patient states she has not seen ortho yet. Will request ER rerecords from [facility] Morbid obesity 286004803 E66.01 advised low fat, low cholestero l, low carb diet, regular exercise and weight reduction. [id number] ARGENIS PUCKETT NP [facility] [address] [place] [address] 07/25/2022 10:51:54 07/26/2022 10:39:43 Essential hypertension 25898173 I10 - b/p in office today 126/78- Continue medication as prescribed and diet/exerc ise as previously discussed. - Take occasional BP s, call if consistent ly >140/90.- Discussed reasons for sooner f/u than 6 months.- Patient verbalizes understand ing. Uncontroll ed type 2 diabetes mellitus 061497090 E11.65 - Educated on goal of blood sugars (A1C of 7% and fasting of 80-130) and informatio n below. Postprandi al BG of less than 180. - Encouraged weight loss and diet changes. - Monitor BP with goal of <130/80. - Stop smoking. - Continue statin and next level due {{3 months 6 months* 1 year}} - Eye exam yearly and dentist regularly. - Next A1C due {{1 month 2 months 3 months* 6 months}} - RTC or call if blood sugars not controlled . - Check feet daily and notify PCP immediatel y of abnormalit y. - F/U in {{1 week 2 weeks 1 month 3 months* 6 months}} Viral uppe r respiratory tract infection 635756085 J06.9 Patient will go for flu and covid test [id number] ARGENIS PUCKETT NP [facility] [address] [place] [address] 02/02/2023 14:10:21 02/05/2023 09:36:47 Uncontrolled type 2 diabetes mellitus 055065246 E11.65 - Educated on goal of blood sugars (A1C of 7% and fasting of 80-130) and informatio n below. Postprandi al BG of less than 180. - Encouraged weight loss and diet changes. - Monitor BP with goal of <130/80. - Stop smoking. - Continue statin and next level due {{3 months 6 months* 1 year}} - Eye exam yearly and dentist regularly. - Next A1C due {{1 month 2 months 3 months* 6 months}} - RTC or call if blood sugars not controlled . - Check feet daily and notify PCP immediatel y of abnormalit y. - F/U in {{1 week 2 weeks 1 month 3 months* 6 months}} Essential hypertension 18765784 I10 - b/p in office today 126/78- Continue medication as prescribed and diet/exerc ise as previously discussed. - Take occasional BP s, call if consistent ly >140/90.- Discussed reasons for sooner f/u than 6 months.- Patient verbalizes understand ing. Tobacco user 509842581 Z 72.0 - Patient is a current cigarette smoker, states she smokes 1.5 pk per day and currently has no desire to quit.- Patient advised in the derogatory effects of smoking- Counseling for smoking cessation completed Hyperlipidemia 49330005 E78.5 - Educated on risks factors, and healthy lifestyle. - Handout provided on lifestyle modificati ons .- Continue statin as prescribed , possible side-effec ts discussed with patient.- RTC in 4 months Urinary symptoms 7686538 08 R39.9 Insomnia 056202471 G47.0 0 - Take bedtime medication before or at 10 PM- Avoid anything that will energize you or activate you- Sleep 6-8 hours a night (this is when short-term memory turns into long-term memory) Pain of bi lateral hands [id number] 3802739 M79.641 M79.642 Obesity 426741788 E66.9 advised low fat, low cholestero l, low carb diet, regular exercise and weight reduction. [id number] ARGENIS PUCKETT NP [facility] [address] [place] [address] 11/15/2023 15:21:57 11/28/2023 14:18:58 Essential hypertension 86095182 I10 - b/p in office today 134/91- Continue medication as prescribed and diet/exerc ise as previously discussed. - Take occasional BP s, call if consistent ly >140/90.- Discussed reasons for sooner f/u than 6 months.- Patient verbalizes understand ing. Tobacco user 970436830 Z 72.0 - Patient is a current cigarette smoker, states she smokes 1.5 pk per day and currently has no desire to quit.- Patient advised in the derogatory effects of smoking- Counseling for smoking cessation completed [facility] ed type 2 diabetes mellitus 842986663 E11.65 - Dr. Lock following and managing care. Bilateral tinnitus 00409 80711 102 H93.13 Hyperlipidemia 52101097 E78.5 - Educated on risks factors, and healthy lifestyle. - Handout provided on lifestyle modificati ons .- Continue statin as prescribed , possible side-effec ts discussed with patient.- RTC in 4 months Obesity 928569249 E66.9 advised low fat, low cholestero l, low carb diet, regular exercise and weight reduction. [id number] ARGENIS PUCKETT NP [facility] [address] [place] [address] 06/30/2024 16:25:52 07/07/2024 14:49:00 Obesity 939527190 E66.9 advised low fat, low cholestero l, low carb diet, regular exercise and weight reduction. Essential hypertension 88962792 I10 - b/p in office today 146/92- Continue medication as prescribed and diet/exerc ise as previously discussed. - Take occasional BP s, call if consistent ly >140/90.- Discussed reasons for sooner f/u than 6 months.- Patient verbalizes understand ing. Uncontroll ed type 2 diabetes mellitus 823490326 E11.65 - Dr. Ulloa following 6.4 A1c Sept 14 Localized eruption of skin 729856350 R21 Screening for malignant neoplasm of colon 071608182 Z12.11 Screening mammography 24 519927 Z12.31 Goals Section Goal Description Progress Status Start Date LastModified by Organization Details LastModified Time Follow-up Appointment( s) Attends referral and/or follow-up appointment( s) as per care team recommendati on(s) Zackary active 2023 Rubi Phan LPN Information not available 12/06/2023 16:15:30 Exercise Regularly Follows a regular exercise regimen or instructed exercise plan as per care team recommendati on(s) Zackary active 2023 Rubi Phan LPN Information not available 12/06/2023 16:16:25 Weight Loss Decreases body weight as per care team recommendati on(s) Zackary active 2023 Rubi Phan LPN Information not available 12/06/2023 16:12:40 Lipid Levels Maintains normal lipid levels as defined by care team Zackary active 2023 Rubi Phan LPN Information not available 12/06/2023 16:14:57 Diet Adherence Follows prescribed or recommended diet Zackary active 2023 Rubi Phan LPN Information not available 12/06/2023 16:16:25 Smoking Cessation Quits smoking NoCadelaida active 2023 Rubi Phan LPN Information not available 12/06/2023 16:13:45 Blood Pressure Maintains blood pressure goal as defined by care team Zackary active 2023 Rubi Phan LPN Information not available 12/06/2023 16:13:19 Medication Regimen Follows medication regimen as per care team recommendati on(s) Zackary active 2023 Rubi Phan LPN Information not available 12/06/2023 16:14:57 Hemoglobin A1C Lowers or maintains hemoglobin A1C (HbA1c) as per care team recommendati on(s) [TARGET: less than or equal to 7%] NoChange active 2023 Rubi Phan LPN Information not available 12/06/2023 16:14:36 Health Concerns Section Related Observation LastModified by Organization Detai ls LastModified Time None Recorded Concern Status LastModified by Organization Details LastModified Time Bilateral tinnitus Active Rubi Phan LPN Not Avai lable 12/06/2023 16:15:30 Essential hypertension Active Rubi Phan LPN Not Available 12/06/2023 1 6:13:19 Tobacco user Active Rubi Phan LPN Not Available 12/06/2023 16:13:45 Type II diabetes mellitus uncontrolled Active Rubi Phan LPN Not Available 2023 16:14:36 Hyperlipidemia Active Rubi Phan LPN Not Availabl e 12/06/2023 16:14:57 Obesity Active Rubi Phan LPN Not Available 16:16:25 Advance Directives Directive N: Payers Encounter Date Sequence Insurance Name Policy Number Policy Naranjo Covered Member ID Naranjo Member ID Guarantor Name 04/18/2022 1 [facility] [id number] [facility] [id number] Miriam Beckhamn [place] 04/18/2022 2 [facility] [id number] [facility] [id number] Miriam Burrell [place] 07/25/2022 1 [facility] [id number] [facility] [id number] Miriam Beckhamn [place] 07/25/2022 2 [facility] [id number] [facility] [id number] Miriam Burrell [place] 02/02/2023 1 [facility] [id number] [facility] [id number] Miriam Burrell [place] 02/02/2023 2 [facility] [id number] [facility] [id number] Miriam Burrell [place] 11/15/2023 1 [facility] [id number] [facility] [id number] Miriam Burrell [place] 11/15/2023 2 [facility] [id number] Miriam Silva [id number] Miriam Silva 06/30/2024 1 [facility] [id number] Miriam Silva [id number] Miriam Silva 06/30/2024 2 [facility] [id number] Miriam Silva [id number] Miriam Silva Notes Date Note Type Note Provider Name and Address Organization Details Recorded Time 2 text/htm l Diabetes F/UReported bypatient.Labs:last A1C result: 9.0 Context:not seeing eye doctor yearly;missing doses of medication Associated Symptoms:no dizziness; no headaches; no numbness of feet; no calluses on feetHypertension F/UReported bypatient.Associated Symptoms:no dizziness; no lightheadedness; no chest pain; no shortness of breath; no palpitations; no edema Medications:taking medications as directed Ms. Silva presented in office today for f/u appointment. The patient states she went to [facility] on 04/12/22 with a dislocated knee. 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 Patient states she returned to work in a wheelchair on April 14 due to her inability to bear weight. The patient states she was referred to ortho by the ER doctor but has yet to see them. The patient is requesting a note to return to full duty at work. To return to full duty, the patient was informed that she would need to be cleared by an geospatial specialist. The patient expressed her understanding. ARGENIS PUCKETT NP Attn: [employer],[address] [place] [address], [phone], [facility] 04/21/2022 14:38:13 3 text/htm l Diabetes F/UReported bypatient.Labs:last A1C result: 9.6 Context:home blood sugar range highUpper Respiratory SymptomsReported bypatient.Location:head; chest; throat Quality:productive cough;colored phlegm;congested Severity:moderate Onset/Timing:gradual Context:no foreign travel;sick contact;smoker Modifying Factors:OTC medication (zicam) Associated Symptoms:no shortness of breath; no wheezing; no change in number of pillows needed to sleep at night; no sweats; no fever; no significant weight gain; no significant weight loss; no vomiting; no diarrhea; no rash; no nausea;yellow sputum;morning cough Ms. Silva presented in office today for f/u appointment. Patient c/o cough, head and chest congestion x 1 week. Patient states she has not been tested for COVID or FLU. ARGENIS PUCKETT NP Attn: [facility],[address] [place], [address], [facility] 07/25/2022 14:33:40 3 text/htm l Diabetes F/UReported bypatient.Labs:last A1C result: 10.1 (07/25/2022) Context:home blood sugar range high Associated Symptoms:no numbness of feet; no calluses on feetHand/FingersReported bypatient.Location:bilateral (thumbs) Quality:aching; throbbing; worsening Alleviating Factors:nothing helps Aggravating Factors:gripping; grasping; squeezing; ROMHypertension F/UReported bypatient.Associated Symptoms:no dizziness; no lightheadedness; no chest pain; no shortness of breath; no palpitations; no edema Medications:taking medications as directedInsomniaReported bypatient.Severity:worsening Duration:frequent Associated Symptoms:generalized pain Ms Silva presented in office today for f/u appointment. The patient has a number of complaints, including uti symptoms, bilateral hand pain, and difficulties sleeping. ARGENIS PUCKETT NP Attn: [facility],[address] [facility], [place], [address], [facility] 02/02/2023 15:35:45 4 text/htm l Diabetes F/UReported bypatient.Labs:last A1C result: 7.8 (08/10/23)Hypertension F/UReported bypatient.Associated Symptoms:no dizziness; no lightheadedness; no chest pain; no shortness of breath; no palpitations; no edema Medications:taking medications as directed; no side effects from medication Ms. Silva presented in office today for follow up appointment. The patient complained of ringing in both ears. ARGENIS PUCKETT NP Attn: [facility],[address] [place], [address], [facility] 11/27/2023 15:21:30 4 text/htm l Diabetes F/UReported bypatient.Labs:last A1C result: 6.4 (03/29/2024) Context:not missing doses of medications; no side effects from medicationsHypertension F/UReported bypatient.Associated Symptoms:no dizziness; no lightheadedness; no chest pain; no shortness of breath; no palpitations; no edema Medications:taking medications as directed; no side effects from medication Ms. Silva presents for a follow-up visit with complaints of a persistent rash on the left side of her back for the past 6 months. She reports that the rash is itchy and occasionally arauz. The rash appears as red, patchy areas. The patient denies any known triggers or recent changes in skincare products, detergents, or medications. No associated systemic symptoms such as fever, chills, or fatigue are reported. She has tried ulyp-vti-klglvni creams with minimal relief. No history of similar rashes elsewhere on the body. No recent travel, insect bites, or exposure to new environments. ARGENIS PUCKETT NP Attn: [facility],[address] [facility], [place], [address], [facility] 07/07/2024 08:03:58 OBGyn Episode Ob Episode Information Episode Created Date Number of Fetuses Patient Bloodtype Patient rh Status Prepregnancy Weight lbs Domestic Partner Domestic Partner Phone Father Name Network Firewall Engineer Status 10/25/19 18 1 CLOSED Fetus Data First Name Last Name Admitted to NICU Weight (g) Sex Living Outcome Pediatric Complications Fetus ID Race Codes Race Delivery Type F Full Term 14012 Vaginal Lamberto Calculation Initial Lamberto Date Initial Exam Date Initial Exam Provider Initial Ultrasound Date Last Menstrual Period Date Ultra Sound Weeks Gestation 0 Eighteen To Twenty Week Lamberto Update Ultra Sound Date Fundal Height At Umbil Quickening Date Ultra Sound Latest Weeks Gestation Final Lamberto Confirmed By Final Lamberto Confirmed Date Final Lamberto Date Ultra Sound Latest Days Gestation 0 0 Menstrual History Last Menstrual Date Menses Monthly On Bcp Conception Prior Menses Frequency Hcg Plus Date Menarche Onset Age Delivery Information Delivery Date Delivery Type Labor Anesthesia Weeks Gestation Incision Type Labor Labor Length Hrs Delivered By Post Complications Tubal Sterilization Discharge Date Comments 9 Discharge Information Feeding Method Contraceptive Method Maternal HG B and HCT Levels Ob Episode Information Episode Created Date Number of Fetuses Patient Bloodtype Patient rh Status Prepregnancy Weight lbs Domestic Partner Domestic Partner Phone Father Name Network Firewall Engineer Status 10/25/19 18 1 CLOSED Fetus Data First Name Last Name Admitted to NICU Weight (g) Sex Living Outcome Pediatric Complications Fetus ID Race Codes Race Delivery Type M Full Term 91806 Vaginal Lamberto Calculation Initial Lamberto Date Initial Exam Date Initial Exam Provider Initial Ultrasound Date Last Menstrual Period Date Ultra Sound Weeks Gestation 0 Eighteen To Twenty Week Lamberto Update Ultra Sound Date Fundal Height At Umbil Quickening Date Ultra Sound Latest Weeks Gestation Final Lamberto Confirmed By Final Lamberto Confirmed Date Final Lamberto Date Ultra Sound Latest Days Gestation 0 0 Menstrual History Last Menstrual Date Menses Monthly On Bcp Conception Prior Menses Frequency Hcg Plus Date Menarche Onset Age Delivery Information Delivery Date Delivery Type Labor Anesthesia Weeks Gestation Incision Type Labor Labor Length Hrs Delivered By Post Complications Tubal Sterilization Discharge Date Comments 5 Discharge Information Feeding Method Contraceptive Method Maternal HG B and HCT Levels Ob Episode Information Episode Created Date Number of Fetuses Patient Bloodtype Patient rh Status Prepregnancy Weight lbs Domestic Partner Domestic Partner Phone Father Name Network Firewall Engineer Status 10/25/19 18 1 CLOSED Fetus Data First Name Last Name Admitted to NICU Weight (g) Sex Living Outcome Pediatric Complications Fetus ID Race Codes Race Delivery Type M Full Term 28599 Vaginal Lamberto Calculation Initial Lamberto Date Initial Exam Date Initial Exam Provider Initial Ultrasound Date Last Menstrual Period Date Ultra Sound Weeks Gestation 0 Eighteen To Twenty Week Lamberto Update Ultra Sound Date Fundal Height At Umbil Quickening Date Ultra Sound Latest Weeks Gestation Final Lamberto Confirmed By Final Lamberto Confirmed Date Final Lamberto Date Ultra Sound Latest Days Gestation 0 0 Menstrual History Last Menstrual Date Menses Monthly On Bcp Conception Prior Menses Frequency Hcg Plus Date Menarche Onset Age Delivery Information Delivery Date Delivery Type Labor Anesthesia Weeks Gestation Incision Type Labor Labor Length Hrs Delivered By Post Complications Tubal Sterilization Discharge Date Comments 1 Discharge Information Feeding Method Contraceptive Method Maternal HG B and HCT Levels
--- OUTSIDE RECORDS SUMMARY | 2024-10-12 15:07 | XMS_ITS | Clinical Summary ---
Author Organization [facility] Address [address] [place] [address] Care Team Providers Care Vehicle Operator Technician Name Role Phone Maryann Argenis Garcia NP Primary Care Provider + [phone] Allergies Active Allergy Reactions Criticality Noted Date Comments Cephalexin Swelling Medium Hands and face, difficulty breathing Codeine Hives Medium Ofloxacin Sulfa (Sulfonamide Antibiotics) Other (See comments) Reaction: Unknown, Medications ondansetron (ZOFRAN) 4 mg tablet Take 1 tablet (4 mg total) by mouth every 6 (six) hours as needed [address] (NexIUM) 20 mg capsule Take 1 capsule (20 mg total) by mouth daily before breakfast Active ibuprofen (ADVIL,MOTRIN) 600 mg tablet Take 1 tablet (600 mg total) by mouth every 6 (six) hours as needed for pain 30 tablet 2 Active valsartan (DIOVAN) 320 mg tablet Take 1 tablet (320 mg total) by mouth daily 3 Active blood-glucose meter (Party Over HereTouch Verio Flex meter) miscIndications:Ty pe 2 diabetes mellitus with hyperglycemia, without long-term current use of insulin ([facility]) Check blood sugar three times daily 1 each 3 Active blood glucose diagnostic (OneTouch Verio test strips) stripIndications:T ype 2 diabetes mellitus with hyperglycemia, without long-term current use of insulin ([facility]) Check blood sugar 3 times daily 200 strip 3 3 Active ondansetron ODT (ZOFRAN-ODT) 4 mg disintegrating tablet Take 1-2 tablets (4-8 mg total) by mouth every 8 (eight) hours as needed for nausea or vomiting 20 tablet 4 Active dicyclomine (BENTYL) 20 mg tablet Take 1 tablet (20 mg total) by mouth 3 (three) times a day as needed (Crampy abdominal pain with diarrhea) 20 tablet 4 Active atorvastatin (LIPITOR) 40 mg tablet 4 Active insulin glargine (LANTUS) 100 unit/mL (3 mL) pen for injectionIndicatio ns:Type 2 diabetes mellitus with hyperglycemia, without long-term current use of insulin ([facility]) Inject 20 Units under the skin nightly INJECT 20 UNITS TOTAL UNDER THE SKIN ONCE NIGHTLY 30 mL 2 4 12/11/19 25 Active pen needle, diabetic (BD Ultra-Fine Short Pen Needle) 31 gauge x 5/16 needleIndications: Type 2 diabetes mellitus with hyperglycemia, with long-term current use of insulin ([facility]) USE TO INJECT 1-4 TIMES DAILY DIRECTED. 400 each 2 4 Active semaglutide (Ozempic) 0.25 mg or 0.5 mg (2 mg/3 mL) pen injector injectionIndicatio ns:Type 2 diabetes mellitus with hyperglycemia, without long-term current use of insulin ([facility]) INJECT 0.5MG UNDER THE SKIN EVERY 7 DAYS 3 mL 11 5 Active estradioL (ESTRACE) 1 mg tabletIndications: Type 2 diabetes mellitus with hyperglycemia, with long-term current use of insulin ([facility]) Take 1 tablet (1 mg total) by mouth daily 30 tablet 11 5 Active Active Problems Problem Noted Date Diagnosed Date Encounter for screening colonoscopy 07/15/2024 Morbid (severe) obesity due to excess calories 1 Class 2 severe obesity due t o excess calories with serious comorbidity and body mass index (BMI) of 38.0 to 38.9 in adult 05/09/2023 Assessment & Plan (05/09/2023 11:15 AM CDT): Discussed healthy diet and importance of regular physical activity (20- 30min/day, 150min/wk). Has decreased appetite & noted wt loss with starting Ozempic. Hypertension associated with type 2 diabetes ramesh farah 05/09/2023 Assessment & Plan (03/31/2024 12:45 PM CDT): Chronic, stable. Continue current medications including Diovan 320 mg daily Assessment & Plan (11/16/2023 10:38 AM CDT): Chronic problem. Controlled on current valsartan 320mg daily. Assessment & Plan (08/10/2023 10:16 AM PRINTED CIRCUIT [employer] DRAFTSMAN): Chronic problem. Controlled on current valsartan 320mg daily. Assessment & Plan (05/09/2023 11:16 AM CDT): Chronic problem. Controlled on current valsartan 320mg daily. Hyperlipidemia associated with type 2 diabetes svetlana arevalo 05/09/2023 Assessment & Plan (03/31/2024 12:44 PM CDT): Chronic, stable. Continue statin therapy with atorvastatin 40 mg daily Assessment & Plan (11/16/2023 10:39 AM CDT): Chronic problem. Not at goal on current Atorvastatin 40mg but has improved. Last lipid panel: 02/02/23 WEZ=934 ML=169. 08/10/23 KIU=831 RD=435 Assessment & Plan (08/10/2023 10:19 AM PRINTED CIRCUIT [employer] DRAFTSMAN): Chronic problem. Not at goal on current Atorvastatin 40mg. Last lipid panel: 02/02/23 WFR=049 IF=189. Will update lipid panel today. Verified that she uses [facility]. Aware to check results/results letter in [facility]. Will contact by phone if needed. Assessment & Plan (05/09/2023 11:15 AM CDT): Chronic problem. Not at goal on current Atorvastatin 20mg. Last lipid panel: 02/02/23 SOU=978 XV=137. Diet has changed; will update lipid at future appointment. Type 2 diabetes mellitus wit h hyperglycemia, with long-term current use of insulin 03/12/2023 Assessment & Plan (03/31/2024 12:44 PM CDT): Chronic, with some hypoglycemia. Lower Lantus to 15 units HS. Continue semaglutide 0.5 mg weekly. Assessment & Plan (11/16/2023 11:07 AM CDT): Chronic problem. A1c at goal (6.7%); improved from 7.8% 08/10/23. Current medications: Ozempic 0.5mg weekly Lantus 20 units nightly UTD on labs. DM eye exam 2022 [facility] in . 2nd request sent. Strive for regular exercise (30min most days) and diet (get at least 4-5 servings of fruit and veggies daily, avoid processed foods, increase lean protein intake and decrease carb portions as well as fruit juices, regular soda & desserts). Watch carbs and simple sugars. Check the blood sugar daily. Check the feet daily for skin breakdown and infection. Assessment & Plan (08/10/2023 10:34 AM PRINTED [employer] DRAFTSMAN): Chronic problem. Uncontrolled but A1c improved from 8.4% 05/09/23 to now 7.8%. Current medications: Ozempic 0.5mg weekly Lantus 20 units nightly Had DM eye exam 2022 at [facility] in ; letter sent to get copy of report. UTD on labs but will update lipid/bmp today. Verified that she uses [facility]. Aware to check results/results letter in [facility]. Will contact by phone if needed. Strive for regular exercise (30min most days) and diet (get at least 4-5 servings of fruit and veggies daily, avoid processed foods, increase lean protein intake and decrease carb portions as well as fruit juices, regular soda & desserts). Watch carbs and simple sugars. Check the blood sugar daily. Check the feet daily for skin breakdown and infection. Assessment & Plan (05/09/2023 11:15 AM CDT): Chronic problem. Uncontrolled but A1c improved from 10.9% 03/12/23 to now 8.4%. Has only been using ozempic 0.25mg weekly; never increased to 0.5mg weekly. Will do so at this time. Will continue lantus 20 units nightly. New glucometer sent. Asked to check BS daily. Had DM eye exam 2021 at [facility] in ; letter sent to get copy of report. Aware to call to schedule this years appt. Will update MA/Cr today. Trying to sign on to [facility]--will send results there if able to logon. Otherwise will mail results. Strive for regular exercise (30min most days) and diet (get at least 4-5 servings of fruit and veggies daily, avoid processed foods, increase lean protein intake and decrease carb portions as well as fruit juices, regular soda & desserts). Watch carbs and simple sugars. Check the blood sugar daily. Check the feet daily for skin breakdown and infection. Assessment & Plan (03/12/2023 9:49 AM CDT): Hba1c was Lab Results Component Value Date HGBA1C 10.9 03/12/2023 today, indicating poor DM control Goal Hba1c and blood glucose explained Diet and exercise were advised Prevention and treatment of hyypoglcyemia were discussed with the patient Blood glucose monitoring : 2 x day Adjustment to medications: Stop Metformin Start Ozempic Menopause 03/12/2023 Assessment & Plan (05/09/2023 11:13 AM CDT): Chronic problem. Improved VMS w/estradiol 1mg daily. Would like to continue. Aware of SE/Risks. Assessment & Plan (03/12/2023 9:49 AM CDT): Start HRT with estradiol SE and risks were discussed Pain in wrist 12/08/2014 Overview (10/21/2016): Wrist pain Arthritis 12/08/2014 Overview (10/21/2016): Arthritis Current smoker 12/08/2014 Overview (10/21/2016): Smoker Encounters Date Type Department Care Team Description 09/01/2024 Telephone [facility] [address], [place] [address] Keren Guevara MD 07/30/2024 Telephone [facility] [address], [place] [address] Keren Guevara MD Medication Problem 07/15/[address] [facility] at [address] [place] [address] Brian Lopez, DO from Last 3 Months Surgical History Surgery Date Site/Laterality Comments TUBAL LIGATION HYSTERECTOMY 07/16/2018 - 07/15/2019 OOPHORECTOMY 07/16/2018 - 07/15/2019 Bilateral BREAST BIOPSY 04/21/2021 Bilateral 1 clip placed in each breast BREAST BIOPSY 04/21/2021 Right BREAST BIOPSY 04/21/2021 Left Medical History Medical History Date Comments Hx Other Medical Tubal ligation 2004; Comments: JJC 12/08/2014 - GERD (gastroesophageal reflux disease) Arthritis hands Abnormal Pap smear of cervix abn ormal ultrasound Hyperlipidemia Smoking current Family History Medical History Relation Name Comments Diabetes Father Diabetes mellit us; Heart disease Father Heart disease; Hypertension Father Hypertension; Diabetes Mother Diabetes mellit us; Hypertension Mother Hypertension; Other Other Family history of nerve damage; Relation Name Status Comments Father Mother Other Social History Tobacco Use Types Packs/Day Years Used Date Smoking Tobacco: Every Day Cigarettes 1 27 Smokeless Tobacco: Never Alcohol Use Standard Drinks/Week Comments No 0 (1 standard drink = 0.6 oz pur e alcohol) AUDIT-C Answer Date Recorded Q1: How often do you have a drink containing alcohol? Never 03/31/2024 Q2: How many drinks containi ng alcohol do you have on a typical day when you are drinking? Patient does not drink Q3: How often do you have si x or more drinks on one occasion? Never 03/31/2024 PHQ-2 Answer Date Recorded PHQ-2 Total Score (If total score is 3 or more points, staff should administer the PHQ-9) 0 03/31/2024 Personal Safety Answer Date Recorded Have you ever been in or are you currently in a harmful physical or emotional relationship or is someone making you feel afraid or unsafe? Denies 08/01/2023 Comments No Sex and Gender Information Value Date Recorded Sex Assigned at Not on file Legal Sex Female 3:25 AM PRINTED [employer]FTSMAN Gender Identity Not on file Sexual Orientation Straight 03/31/2024 11 :10 AM CDT Obstetrics History Para Term AB IAB SAB Ectopic Multiple Livin g Live Births 3 3 3 Date Outcome GA Total Labor Labor/2nd/3rd Weight Sex Type Anes PTL Barbara A1 A5 Name Clin Term Term Term Last Filed Vital Signs Vital Sign Reading Time Taken Comments Blood Pressure 122/76 03/31/2024 11:19 AM CDT Pulse 86 03/31/2024 11:19 AM CDT Temperature 37.3 C (99.1 F) 08/01/2023 6:00 PM [employer]ED [employer]SMAN Respiratory Rate 16 03/31/2024 11:19 AM CDT Oxygen Saturation 94% 08/02/2023 3:30 AM [employer]ED [employer]RA[employer]SMAN Inhaled Oxygen Concentration - - Weight 97.7 kg (215 lb 6.4 oz) 03/31/2024 11:19 AM CDT Height 162.6 cm (5' 4 ) 03/31/2024 11:19 AM CDT Body Mass Index 36.97 03/31/2024 11:19 AM CDT Plan of Treatment Upcoming Encounters Date Type Department Care Team (Late st Contact Info) Description 06/03/2025 7:30 AM PRINTED [employer] DRAFTSMAN Hospital Encounter [address] [address] Brian Lopez DO [address] [place] [address] 06/03/2025 7:30 AM [employer]ED [employer]SMAN - 06/03/2025 8:00 AM [employer]FTSM[employer] Surgery [address] [address] Brian Lopez DO [address] [place] [address] COLONOSCOPY Scheduled Procedures Name Priority Associated Diagnoses Date/Ti me COLONOSCOPY Encounter for screening colonoscopy 06/03/2025 7:30 AM PRINTED [employer]RAFTSMAN Health Maintenance Due Date Last Done Comments Colon Cancer Screening-Colonoscopy 1978 Hepatitis C Screening 1978 Dilated Eye Exam 1978 Hepatitis B Screening 1996 Regular Well Visit/Exam 18-64 1996 Pneumococcal vaccine <65 (2 of 2 - PCV) 03/29/2021 03/29/2020 Breast Cancer Screening-Mammogram 04/05/2022 04/05/2021 Covid-19 Vaccine ( - season) 2024 10/05/2020, 09/07/2020 Albumin Creatinine Ratio, Urine 05/09/2024 05/09/2023 Foot Exam 05/09/2024 05/09/2023 Lipid Panel 08/10/2024 08/10/2023, 02/02/2023 eGFR 08/10/2024 08/10/2023, 07/16, 02/02/2023, Additional history exists Hemoglobin A1C 09/28/2024 03/31/2024, 05/0 09/2023, 08/10/2023, Additional history exists Depression Screening 03/31/2025 03/31/2024 DTaP/Tdap/Td Vaccine (2 - Td or Tdap) 03/15/2030 03/15/2020 Influenza Vaccine Completed 04/16/2024, , 08/27/2018, Additional history exists HPV Vaccines Aged Out No longer eligi ble based on patient's age to complete this topic Medical Devices Implanted Type Area Screwhead Polisher Device Identifier Shelf Expiration Date Model / Serial / Lot Bard Peripheral Vascular [id number] Ultraclip Bard 17ga 10cm 2 Trigger Permanent Ultrasound - [id number] - [id number] Implanted:Qty: 1 on 04/21/2021 by Brett Cuadra MD at [facility] Breast Left: Breast [employer] 01/11/2024 [id number] / [id number] / Description:Implanted Left B reast 2:00 area 9 cmfn Bard Peripheral Vascular [id number] Ultraclip Bard 17ga 12cm 2 Trigger Permanent Ultrasound - [id number] - [id number] Implanted:Qty: 1 on 04/21/2021 by Brett Cuadra MD at [facility] Breast Right: Breast [employer] 02/10/2024 [id number] / [id number] / Description:Implanted Right Breast 7:00 area 2 cmfn Procedures Procedure Name Priority Date/Time Associated Diagnosis Comments POCT HEMOGLOBIN A1C Routine 03/31/2024 11:17 AM CDT Type 2 diabetes mellitus with hyperglycemia, with long-term current use of insulin (HCC) EGFR Routine 08/10/2023 10:52 AM PRINTED [employer] D[employer]SMAN Type 2 diabetes mellitus with hyperglycemia, without long-term current use of insulin (HCC) LIPID PANEL Routine 08/10/2023 10:52 AM [employer]INTED [employer] DRAFTSMAN Hyperlipidemia associated with type 2 diabetes mellitus (HCC) ALBUMIN CREATININE RATIO, URINE Routine 05/09/2023 11:20 AM CDT Type 2 diabetes mellitus with hyperglycemia, without long-term current use of insulin (HCC) DIAGNOSTIC MAMMOGRAM BILATERAL W KVNG Schedule Routine, Read Routine (OP Routine) 04/05/2021 9:49 AM CDT Unspecified lump in the right breast, unspecified quadrant from Last 3 Months or Most Recently Relevant to Health Maintenance Results * (ABNORMAL) POCT hemoglobin A1c (03/31/2024 11:17 AM CDT) Pathologist [facility] Hemoglobin A1C, POC 6.5 4.0 - 5.6 % Comment:None Capillary blood 03/31/2024 1 1:17 AM CDT Keren Guevara MD POINT OF CARE TEST ORDERABLES Fi nal Result * eGFR (08/10/2023 10:52 AM PRINTED CIRCUIT BO[employer] DRAFTSMAN) Pathologist [facility] eGFR 103 mL/min/1. 73 m2 [facility] CM Comment: Interpretive Data Reference Interval Normal >/= 90 mL/min/1.73m2 Mildly decreased* 60 - 89 mL/min/1.73m2 Mildly to moderately decreased 45 - 59 mL/min/1.73m2 Moderately to severely decreased 30 - 44 mL/min/1.73m2 Severely decreased 15 - 29 mL/min/1.73m2 Kidney Failure < 15 mL/min/1.73m2 *Relative to young adult level Estimated glomerular filtration rate is determined by the 2020 CKD-EPI equation recommended by the National Kidney Foundation (A Unifying Approach to GFR Estimation: Recommendations of the NKF-ASK Task Force on Reassessing the Inclusion of Race in Diagnosing Kidney Disease, JASN 2020). The CKD-EPI equation should not be used for patients with unstable renal function and has not been validated in children and those over 70. Current interpretive data was last reviewed 2021. Blood 08/10/2023 10:5 2 AM PRINTED CIRCUIT [employer]ARD [employer] DRAFTSMAN 08/10/2023 12:05 PM PRINTED CIRCUIT [employer] DRAFTSMAN us Denisa Lock NP LAB BLOOD ORDERABLES [place] [id number] [address] Department of Laboratories [place], [place] [id number] * (ABNORMAL) Lipid panel (08/10/2023 10:52 AM PRINTED CIRCUIT BOARD PCB DRAFTSMAN) Cholesterol 236(H) 30 - 199 mg/dL [facility] CM Comment: Interpretive Data Ages < or = 19 years Acceptable: <170 mg/dL Borderline high: 170-199 mg/dL High: >or= 200 mg/dL Ages > or = 20 years Desirable: <200 mg/dL Borderline high: 200-239 mg/dL High: >or= 240 mg/dL Literature References: 1. Expert Panel on Integrated Guidelines for Cardiovascular Health and Risk Reduction in Children and Adolescents. Pediatrics 2011;128:S213 2. NCEP Expert Panel. Circulation 2004;110:227 Current Interpretive Data was last revised on 2018. Triglycerides 394(H) <=149 mg/dL OL[facility]IA CM Comment: Interpretive Data Ages < or = 9 years Acceptable: <75 mg/dL Borderline high: 75-99 mg/dL High: >or= 100 mg/dL Ages 10 to 20 years Acceptable: <90 mg/dL Borderline high: 90-129 mg/dL High: >or= 130 mg/dL Ages > or = 20 years Desirable: <150 mg/dL Borderline high: 150-199 mg/dL High: 200-499 mg/dL Very high: >or= 499 mg/dL Literature References: 1. Expert Panel on Integrated Guidelines for Cardiovascular Health and Risk Reduction in Children and Adolescents. Pediatrics 2011;128:S213 2. NCEP Expert Panel. Circulation 2004;110:227 Current Interpretive Data was last revised on 2018. HDL 29(L) >=40 mg/dL [facility] CM Comment: Interpretive Data Ages < or = 19 years Acceptable: >45 mg/dL Borderline low: 40-45 mg/dL Low: <40 mg/dL Ages > or = 20 years Desirable: >or= 60 mg/dL Low: <40 mg/dL Literature References: 1. Expert Panel on Integrated Guidelines for Cardiovascular Health and Risk Reduction in Children and Adolescents. Pediatrics 2011;128:S213 2. NCEP Expert Panel. Circulation 2004;110:227 Current Interpretive Data was last revised on 2018. LDL, calculated 128 <=129 mg/dL [facility] CM Comment: Interpretive Data Ages < or = 19 years Acceptable: <110 mg/dL Borderline high: 110-129 mg/dL High: >or= 130 mg/dL Ages > or = 20 years Optimal: <100 mg/dL Near optimal: 100-129 mg/dL Borderline high: 130-159 mg/dL High: >160 mg/dL Literature References: 1. Expert Panel on Integrated Guidelines for Cardiovascular Health and Risk Reduction in Children and Adolescents. Pediatrics 2011;128:S213 2. NCEP Expert Panel. Circulation 2004;110:227 Current Interpretive Data was last revised on 2018. Non-HDL Cholesterol 207 mg/dL [facility] CM Comment: Interpretive Data Ages < or = 19 years Acceptable: <120 mg/dL Borderline high: 120-144 mg/dL High: >145 mg/dL Ages > or = 20 years When triglycerides are >200 mg/dL, Non-HDL cholesterol is a secondary target of therapy with treatment goals that are 30 mg/dL greater than the LDL cholesterol target. Literature References: 1. Expert Panel on Integrated Guidelines for Cardiovascular Health and Risk Reduction in Children and Adolescents. Pediatrics 2011;128:S213 2. NCEP Expert Panel. Circulation 2004;110:227 Current Interpretive Data was last revised on 2018. Chol/HDL ratio 8 [facility] Blood 08/10/2023 10:5 2 AM PRINTED CIRCUIT [employer]ARD [employer] DRAFTSMAN 08/10/2023 11:57 AM [employer]INTED [employer] DRAFTSMAN Denisasai Lock [employer] LAB BLOOD ORDERABLES Tara l Result Performing Organization Address [facility] de Phone Number [facility] [place] [address] [facility] [place] [address] * Albumin Creatinine Ratio, Urine (05/09/2023 11:20 AM CDT) Albumin Ur 79.5 mg/L [facility] Comment: Interpretive Data No reference range established. Current interpretive data was last revised 2018. Creatinine Ur 287.1 mg/dL [facility] Comment: Interpretive Data No reference range established. Current interpretive data was last revised 2018. Albumin Creatinine Ratio, Ur 28 1 - 29 mg/g [facility] Urine 05/09/2023 11:2 0 AM CDT 05/09/2023 9:38 PM CDT us Denisasai Lock [employer] LAB URINE ORDERABLES Tara l Result Performing Organization Address [facility] Phone Number [facility] [place] 2[facility] [address] Department [place] [address] * (ABNORMAL) Diagnostic Mammogram Bilateral W Kvng (04/05/2021 9:49 AM CDT) Anatomical Region Laterality Modality Breast Bilateral Mammography 04/05/2021 11:2 2 AM CDT Impressions 04/05/2021 11:22 AM CDT 1. The mass at the palpable site of concern in the right breast at the 7 o'clock position and the mass in the left breast at the 2 o'clock position are suspicious for malignancy (low suspicion). Ultrasound-guided biopsy of each of these masses is recommended. 2. No evidence of right or left axillary lymphadenopathy. BI-RADS: 4A - Suspicious for malignancy. Biopsy is recommended. I discussed the findings and impression with the patient at the time of the examination. This facility will contact the referring clinician's office to obtain an order for the biopsy. The patient will then be contacted to schedule the biopsy appointment. Electronically signed by: Miguel A Acuna M.D. Narrative 04/05/2021 11:22 AM CDT EXAMINATION: DIAGNOSTIC MAMMOGRAM BILATERAL W KVNG, US BREAST BILATERAL LIMITED ORDERING HEALTHCARE PROVIDER: NISHI FERNANDEZ HISTORY: 40-year-old female presents for evaluation of a palpable lump in the right breast and baseline screening mammography of the left breast. COMPARISON: None available. TECHNIQUE: CC and MLO views of the bilateral breasts were obtained with digital technique using breast tomosynthesis with C view. Computer aided detection was utilized. Multiple ultrasound images of the bilateral breasts were obtained. FINDINGS: MAMMOGRAPHIC FINDINGS DENSITY: There are scattered fibroglandular elements in the bilateral breasts. BREASTS: A radiopaque marker is placed over the palpable site of concern in the subareolar right breast. There is no suspicious mammographic abnormality underlying the radiopaque marker. There is a 4 mm oval, circumscribed mass in the left breast at the 2-3 o'clock position, middle depth. There are no other suspicious findings in either breast. ULTRASOUND FINDINGS Targeted ultrasound of the palpable site of concern in the right breast at the 7 o'clock position, 2 cm from the nipple demonstrates a 0.5 x 0.4 x 0.5 cm oval hypoechoic mass with a parallel orientation, no posterior acoustic features, microlobulated margins, no evidence of internal blood flow on color Doppler imaging. Targeted ultrasound of the left breast at the 2 o'clock position, 19 from the nipple demonstrates a 0.3 x 0.3 x 0.3 cm oval hypoechoic mass with a parallel orientation, microlobulated margins, no posterior acoustic features, and no evidence of internal blood flow on color Doppler imaging. Targeted ultrasound of the right axilla and targeted ultrasound of the left axilla demonstrates no evidence of axillary lymphadenopathy. [place] WHALEN IMG MAMMO PROCEDURE S Final Result from Last 3 Months or Most Recently Relevant to Health Maintenance Insurance [facility] [employer] GENERIC Care Teams Vehicle Operator Technician Relationship Specialty Start Date End Date Argenis Wolf NP [address] [address] [phone] (work) PCP - General Family Medicine 02/26/23
--- OUTSIDE RECORDS SUMMARY | 2024-10-12 15:07 | XMS_ITS | Referral Summary ---
Author Organization [facility] Address [address] [place] [address] Care Team Providers Care Group Leader Name Role Phone Maryann Argenis Jose HERNANDEZ Primary Care Provider + [phone] Encounters Date Type Department Care Team Description 09/01/2024 Telephone [facility] [place] [facility] of [address] [address] Keren Guevara MD 07/30/2024 Telephone [facility] [facility]ists [address] [address] Keren Guevara MD Medication Problem 07/15/2024 Telephone [facility] at [address], [place] [address] Brian Lopez, DO from Last 3 Months Allergies Active Allergy Reactions Criticality Noted Date [...] by mouth daily 3 Active blood-glucose meter (EkinopsTouch Verio Flex meter) miscIndications:Ty pe 2 diabetes mellitus with hyperglycemia, without long-term current use of insulin ([facility]) Check blood sugar three times daily 1 each 3 Active blood glucose diagnostic (OneTouch Verio test strips) stripIndications:T ype 2 diabetes mellitus with hyperglycemia, without long-term current use of insulin ([facility]) Check blood sugar 3 times daily 200 [...] hyperglycemia, without long-term current use of insulin ([facility]) Inject 20 Units under the skin nightly INJECT 20 UNITS TOTAL UNDER THE SKIN ONCE NIGHTLY 30 mL 2 4 12/11/19 25 Active pen needle, diabetic (BD Ultra-Fine Short Pen Needle) 31 gauge x 5/16 needleIndications: Type 2 diabetes mellitus with hyperglycemia, with long-term current use of insulin ([facility]) USE TO INJECT 1-4 TIMES DAILY DIRECTED. 400 each 2 4 Active semaglutide (Ozempic) 0.25 mg or 0.5 mg (2 mg/3 mL) pen injector injectionIndicatio ns:Type 2 diabetes mellitus with hyperglycemia, without long-term current use of insulin ([facility]) INJECT 0.5MG UNDER THE SKIN EVERY 7 DAYS 3 mL 11 5 Active estradioL (ESTRACE) 1 mg tabletIndications: Type 2 diabetes mellitus with hyperglycemia, with long-term current use of insulin ([facility]CC) Take 1 tablet (1 mg total) by [...] daily. 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 Controlled on current valsartan 320mg [...] but has improved. Last lipid panel: 02/02/23 RZD=291 OS=326. 08/10/23 QEV=066 MF=106 Assessment & Plan (08/10/2023 10:19 AM FRONT LOAD TRASH TRUCK DRIVER): Chronic problem. Not at goal on current Atorvastatin 40mg. Last lipid panel: 02/02/23 QNY=362 UB=005. Will update lipid panel today. Verified that she uses my[facility]. Aware to check results/results letter in [employer]. Will contact by phone if needed. Assessment & Plan (05/09/2023 11:15 AM CDT): Chronic problem. Not at goal on current Atorvastatin 20mg. Last lipid panel: 02/02/23 WLL=561 SB=293. Diet has changed; will update lipid at [...] UTD on labs. DM eye exam 2022 [facility] in . 2nd request sent. Strive for [...] infection. Assessment & Plan (08/10/2023 10:34 AM FRONT LOAD TRASH TRUCK DRIVER): Chronic problem. Uncontrolled but A1c improved from 8.4% 05/09/23 to now 7.8%. Current medications: Ozempic 0.5mg weekly Lantus 20 units nightly Had DM eye exam 2022 at [facility] in ; letter sent to get copy of report. UTD on labs but will update lipid/bmp today. Verified that she uses [employer] [facility]. Aware to check results/results letter in [employer]. Will contact by phone if needed. Strive [...] daily. Had DM eye exam 2021 at [facility] in ; letter sent to get copy of report. Aware to call to schedule this years appt. Will update MA/Cr today. Trying to sign on to [employer]--will send results there if able to logon. [...] Arthritis Current smoker 12/08/2014 Overview (10/21/2016): Smoker Social History Tobacco Use Types Packs/Day Years [...] on file Legal Sex Female 3:25 AM FRONT LOAD TRASH TRUCK DRIVER Gender Identity Not on file Sexual Orientation Straight 03/31/2024 11 :10 AM CDT Last Filed Vital Signs Vital Sign Reading Time Taken Comments Blood Pressure 122/76 03/31/2024 11:19 AM CDT Pulse 86 03/31/2024 11:19 AM CDT Temperature 37.3 C (99.1 F) 08/01/2023 6:00 PM FRONT LOAD TRASH TRUCK DRIVER Respiratory Rate 16 03/31/2024 11:19 AM CDT Oxygen Saturation 94% 08/02/2023 3:30 AM FRONT LOAD TRASH TRUCK DRIVER Inhaled Oxygen Concentration - - Weight 97.7 kg (215 lb 6.4 oz) 03/31/2024 11:19 AM CDT Height 162.6 cm (5' 4 ) 03/31/2024 11:19 AM CDT Body Mass Index 36.97 03/31/2024 11:19 AM CDT Plan of Treatment Upcoming Encounters Date Type Department Care Team (Late st Contact Info) Description 06/03/2025 7:30 AM FRONT LOAD TRASH TRUCK DRIVER Hospital Encounter [address] [address] Brian Lopez DO [address] [address] [address] [place] [address] 06/03/2025 7:30 AM FRONT LOAD TRASH TRUCK DRIVER - 06/03/2025 8:00 AM FRONT LOAD TRASH TRUCK DRIVER Surgery [address] [address] Brian Lopez, [address] [facility] [address] [place] [address] COLONOSCOPY Scheduled Procedures Name Priority Associated Diagnoses Date/Ti me COLONOSCOPY Encounter for screening colonoscopy 06/03/2025 7:30 AM FRONT LOAD TRASH TRUCK DRIVER Medical Devices Implanted Type Area Rn Document Improvement Specialist Device Identifier Shelf Expiration Date Model / Serial / Lot Bard Peripheral Vascular [id number] Ultraclip Bard 17ga 10cm 2 Trigger Permanent Ultrasound - [id number] - [id number] Implanted:Qty: 1 on 04/21/2021 by Brett Cuadra MD at [facility] Breast Left: Breast [employer] Peripheral V[employer] 01/11/2024 [id number] / [id number] / Description:Implanted Left B reast 2:00 area 9 cmfn Bard Peripheral Vascular [id number] Ultraclip Bard 17ga 12cm 2 Trigger Permanent Ultrasound - [id number] - [id number] Implanted:Qty: 1 on 04/21/2021 by Brett Cuadra MD at [facility] Breast Right: Breast [employer] Peripheral Vascular 02/10/2024 [id number] / [id number] / Description:Implanted Right Breast 7:00 area 2 cmfn Procedures Procedure Name Priority Date/Time Associated Diagnosis Comments POCT HEMOGLOBIN A1C Routine 03/31/2024 11:17 AM CDT Type 2 diabetes mellitus with hyperglycemia, with long-term current use of insulin (HCC) EGFR Routine 08/10/2023 10:52 AM FRONT LOAD TRASH TRUCK DRIVER Type 2 diabetes mellitus with hyperglycemia, without long-term current use of insulin (HCC) LIPID PANEL Routine 08/10/2023 10:52 AM FRONT LOAD TRASH TRUCK DRIVER Hyperlipidemia associated with type 2 diabetes mellitus [...] hemoglobin A1c (03/31/2024 11:17 AM CDT) Pathologist [facility] Hemoglobin A1C, POC 6.5 4.0 - 5.6 % Comment:None Capillary blood 03/31/2024 1 1:17 AM CDT Keren Guevara MD POINT OF CARE TEST ORDERABLES Fi nal Result * eGFR (08/10/2023 10:52 AM FRONT LOAD TRASH TRUCK DRIVER) eGFR 103 mL/min/1. 73 m2 OLIVIA CM [...] of Race in Diagnosing Kidney Disease, JASN 202). The CKD-EPI equation should not be used for patients with unstable renal function and has not been validated in children and those over 70. Current interpretive data was last reviewed 2021. Blood 08/10/2023 10:5 2 AM FRONT LOAD TRASH TRUCK DRIVER 08/10/2023 12:05 PM FRONT LOAD TRASH TRUCK DRIVER us Denisa Lock NP LAB BLOOD ORDERABLES [place] [address] [address] [place] [address] * (ABNORMAL) Lipid panel (08/10/2023 10:52 AM FRONT LOAD TRASH TRUCK DRIVER) Cholesterol 236(H) 30 - 199 mg/dL OLIVIA [...] last revised on 2018. Chol/HDL ratio 8 OLIVIA CM Blood 08/10/2023 10:5 2 AM FRONT LOAD TRASH TRUCK DRIVER 08/10/2023 11:57 AM FRONT LOAD TRASH TRUCK DRIVER Denisa Lock FINANCIAL COST ANALYST LAB BLOOD ORDERABLES Tara l Result Performing Organization Address [facility] [place] [address] [address] [facility] [place] [address] * Albumin Creatinine Ratio, Urine (05/09/2023 11:20 AM CDT) Albumin Ur 79.5 mg/L OLIVIA Comment: Interpretive Data No reference range established. Current interpretive data was last revised 2018. Creatinine Ur 287.1 mg/dL [facility] Comment: Interpretive Data No reference range established. Current interpretive data was last revised 2018. Albumin Creatinine Ratio, Ur 28 1 - 29 mg/g [facility] Urine 05/09/2023 11:2 0 AM CDT 05/09/2023 9:38 PM CDT Denisa Lock FINANCIAL COST ANALYST LAB URINE ORDERABLES Tara l Result Performing Organization Address [facility] [place] [address] [address] [facility] [place] [address] * (ABNORMAL) Diagnostic Mammogram Bilateral W Kvng [...] axilla demonstrates no evidence of axillary lymphadenopathy. us Nishi WHALEN IMG MAMMO PROCEDURE S Final Result from Last 3 Months or Most Recently Relevant to Health Maintenance Insurance [facility] CHOICE PLUS [facility] HMO/PPO Address: [address] [address] [place] [address] [employer] GENERIC Care Teams Group Leader Relationship Specialty Start Date End Date Argenis Wolf NP [address] [address] PCP - General Family Medicine 02/26/23
--- OUTSIDE RECORDS SUMMARY | 2024-10-12 15:07 | XMS_ITS | Continuity of Care Document ---
[facility] Address [address] [place] [address] [address] [place] [address] Phone Care Team Providers Care Entrepreneurial Finance Professor Name Role Phone Barb Torrez OT Unavailable Unavailable Procedures Procedure Date OT Evaluation Low Complexity Therapeutic Activities Orthotic Mgmt and Training HFO w/o joints CF Advance Directives Directive Yes / No Effective Date File Name No Information Encounters Encounter Description Practice Location Reason(s) For Visit Diagnoses Date Provider Providers Copied on Encounter [facility], [address] [place], [place] [address] [address], [place], [place], [id number], [place] tel:[phone] [place] No Information Lore Day. . Referring Provider: Nick Lucas, [address] [facility] [address], [place], [address]. tel:[phone] Family History Family Member Type Diagnosis Age At Onset No Information Payers Payer name Insurance type Covered green party ID Tigist sin(s) Aurelio Insurance [facility] [id number] Social History Type Description Quantity Date Captured Comments Alcohol Use Details Unknown Caffeine Use Details Unknown Tobacco Use Status Cigarette smoker Smoking Status Smoker, current stat us unknown Non-Smoking Tobacco Use Details : No Details Available : No Details Available Sex Female Vital Signs Date / Time: Height Weight BMI Pulse Rate Blood Pressure Temperature Respiratory Rate Body Surface Area Head Circumference Head Circ. Percentile Wt./Azar. Percentile BMI percentile Pulse Ox Inhaled Ox 12:17 PM 64.00 in 100.240 kg (221.00 lbs) 37.9 3 kg/m eter (2) 2.13 meter(2) Chief Complaint And Reason For Visit No Information Reason For Referral Reason For Referral No Information Plan Of Treatment Date Type Action Status Goal Tobacco Cessation Counseling completed Goal Tobacco cessation counseling completed History Of Present Illness Encounter Date Complaint History Of Prese nt Illness No Information Functional Status Date Functional Assessmen t No Information Instructions Date Instruction Additional Infor mation Prescribed activity/exercise edu cation Related to Overweight Dietary needs education Related to Overweight Assessments Type Assessment Date No Information Patient Care Teams Name Effective Dates (start - stop) Status Members No Information
--- OUTSIDE RECORDS SUMMARY | 2024-10-12 15:07 | XMS_ITS | Clinical Summary ---
Author Organization [facility] Address [address] [place] [address] Phone Care Team Providers Care High Lift Driver Name Role Phone Argenis Garcia MD Primary Care Provider [phone] Joyce Trujillo APRN, FIRE CONTROL MECHANIC Unavailable Allergies Active Allergy Reactions Criticality Noted Date Comments Codeine Vomiting 10/17/2015 Ofloxacin Rash 10/17/2015 Cephalexin Swelling 09/05/2016 Sulfa Antibiotics Shortness of Breath 6 Medications Meloxicam 15 MG Tablet Take 1 Tab by mouth daily. 10 Tab 7 Active ondansetron (ZOFRAN) 4 MG Tablet Take 1 Tab by mouth every 8 hours as needed for Nausea. 10 Tab 8 Active esomeprazole (NEXIUM) 20 MG CAPSULE DELAYED RELEASE Take 20 mg by mouth daily. Active atorvastatin (LIPITOR) 10 MG Tablet Take 10 mg by mouth daily. Active diclofenac (VOLTAREN) 50 MG Tablet Delayed Response Take 1 Tab by mouth 2 times daily. 60 Tab 9 Active HYDROcodone-acet aminophen (NORCO) 10-325 MG Tablet Take 1 Tab by mouth every 6 hours as needed for Moderate or more severe pain. 20 Tab 9 Active ondansetron (ZOFRAN-ODT) 4 MG TABLET DISPERSIBLE Take 1 Tab by mouth every 8 hours as needed for Nausea - 1st line. 10 Tab 9 Active azithromycin (ZITHROMAX Z-DEE DEE) 250 MG Tablet 2 tab(s) daily for 1 day, then 1 tab(s) daily for days 2-5. 6 Tab 9 Active promethazine-cod eine (PHENERGAN WITH CODEINE) 6.25-10 MG/5ML Syrup Take 5 mL by mouth every 4 hours as needed for Cough. 180 mL 9 Active metFORMIN (GLUCOPHAGE) 1000 MG Tablet Take 1,000 mg by mouth 2 times daily (with meals). Active aspirin 81 MG Chewable Tablet Take 1 Tablet by mouth daily for 30 days. 5 10/16/19 25 Active valsartan 320 MG Tablet Take 1 Tablet by mouth daily. Active valsartan (DIOVAN) 160 MG Tablet Take 160 mg by mouth daily. 09/16/19 25 Discontinu ed(Dose adjustment ) Active Problems No known active problems Encounters Date Type Department Care Team Description 10/06/2024 Telephone [facility] Out[facility] [address] [place] [address] Joyce Trujillo APRN, CNP Prior Authorization (See documentation for denial reasons ) 09/15/2024 10:30 AM ADULT EDUCATION MANAGER Office Visit [facility] Medical [facility] Cardiology [facility] [address] [place] [address] Joyce Trujillo APRN, CNP Chest pain, unspecified type (Primary Dx); Dyspnea, unspecified type; Hyperlipidemia, unspecified hyperlipidemia type; Primary hypertension; Class 2 obesity with body mass index (BMI) of 36.0 to 36.9 in adult, unspecified obesity type, unspecified whether serious comorbidity present; Type 2 diabetes mellitus without complication, unspecified whether canoe inspector insulin use (HCC) Discharge Disposition: Discharged to home or Selfcare 09/15/2024 Travel 09/08/2024 9:46 AM ADULT EDUCATION MANAGER - 09/08/2024 1:48 PM ADULT EDUCATION MANAGER Emergency [facility] Emergency [address] [place] [address] Luna Castro APRN, PAVAN Chest pain, unspecified type Discharge Disposition: Discharged to home or Selfcare from Last 3 Months Social History Tobacco Use Types Packs/Day Years Used Date Smoking Tobacco: Every Day Cigarettes Smokeless Tobacco: Never Alcohol Use Standard Drinks/Week Comments No 0 (1 standard drink = 0.6 oz pur e alcohol) Comments No Sex and Gender Information Value Date Recorded Sex Assigned at Not on file Legal Sex Female 11:44 PM CDT Gender Identity Not on file Sexual Orientation Not on file Last Filed Vital Signs Vital Sign Reading Time Taken Comments Blood Pressure 118/72 09/15/2024 10:26 AM ADULT EDUCATION MANAGER Pulse 103 09/15/2024 10:26 AM ADULT EDUCATION MANAGER Temperature 36.6 C (97.9 F) 09/15/2024 10:26 AM ADULT EDUCATION MANAGER Respiratory Rate 16 09/15/2024 10:26 AM ADULT EDUCATION MANAGER Oxygen Saturation 95% 09/15/2024 10:26 AM ADULT EDUCATION MANAGER Inhaled Oxygen Concentration - - Weight 96.2 kg (212 lb) 09/15/2024 10:26 AM ADULT EDUCATION MANAGER Height 162.6 cm (5' 4 ) 09/15/2024 10:26 AM ADULT EDUCATION MANAGER Body Mass Index 36.39 09/15/2024 10:26 AM ADULT EDUCATION MANAGER Plan of Treatment Upcoming Encounters Date Type Department Care Team (Late st Contact Info) Description 11/14/2024 1:00 PM CDT [facility] [address] [place] [address] Joyce Trujillo APRN, FIRE CONTROL MECHANIC [address] [place] [address] 12/15/2024 4:00 PM CDT Office Visit [facility] - [place] [address] [place] [phone] Joyce Trujillo APRN, PAVAN [address] [place] [address] Health Maintenance Due Date Last Done Comments Hepatitis B Immunization (1 of 3 - 19+ 3-dose series) 1997 Pap Smear 1999 Cervical Cancer Screening (CCS) 2008 HPV/Cotest 2008 Pneumococcal Immunization Combined (2 of 2 - PCV) 03/29/2021 03/29/2020 Mammogram 04/21/2022 04/21/2021, 04/05/2021 Colonoscopy 2023 Colorectal Cancer Screening 2023 Respiratory Syncytial Virus (RSV) Immunization (Adult) (1 - 1-dose 75+ series) 2053 Hepatitis C Virus (HCV) Screening Completed 10/17/2015 DTaP/Tdap/Td Immunization Discontinued 03/15/2020 TdaP Immunization Completed 03/15/2020 Discussion re Starting/Frequency of Mammograms Completed 04/05/2021 Influenza Immunization Completed 4, 04/12/2022, 08/27/2018, Additional history exists SARS-COV-2 Immunization Completed 04/16/20 24, 10/05/2020, 09/07/2020 Meningococcal Immunization (ACWY) Aged Out No longer eligible based on patient's age to complete this topic Rotavirus Immunization Aged Out No lo nger eligible based on patient's age to complete this topic Procedures Procedure Name Priority Date/Time Associated Diagnosis Comments TROPONIN I, HIGH SENSITIVITY (HSTRP) STAT 09/08/2024 12:24 PM ADULT EDUCATION MANAGER URINALYSIS REFLEX IF INDICATED BY ABNORMAL RESULTS STAT 09/08/2024 11:09 AM ADULT EDUCATION MANAGER XR CHEST SINGLE VIEW PORTABLE STAT 09/08/2024 11:05 AM ADULT EDUCATION MANAGER GOLD TOP TUBE STAT 09/08/2024 10:02 AM ADULT EDUCATION MANAGER BLUE TOP TUBE STAT 09/08/2024 10:02 AM ADULT EDUCATION MANAGER CBC WITH AUTO DIFFERENTIAL STAT 09/08/2024 10:02 AM ADULT EDUCATION MANAGER EXTRA TUBES STAT 09/08/2024 10:02 AM ADULT EDUCATION MANAGER LIPASE STAT 09/08/2024 10:02 AM ADULT EDUCATION MANAGER TROPONIN I, HIGH SENSITIVITY (HSTRP) STAT 09/08/2024 10:02 AM ADULT EDUCATION MANAGER COMPLETE BLOOD COUNT (CBC) WITH DIFF STAT 09/08/2024 10:02 AM ADULT EDUCATION MANAGER CMP (COMPREHENSIVE METABOLIC PANEL) STAT 09/08/2024 10:02 AM ADULT EDUCATION MANAGER EKG 12 LEAD STAT 09/08/2024 9:58 AM ADULT EDUCATION MANAGER EKG SCAN 09/08/2024 12:00 AM ADULT EDUCATION MANAGER EKG SCAN 09/08/2024 12:00 AM ADULT EDUCATION MANAGER RHYTHM STRIP 09/08/2024 12:00 AM ADULT EDUCATION MANAGER HEPATITIS PANEL ACUTE (AHP) STAT 10/17/2015 5:30 PM CDT from Last 3 Months or Most Recently Relevant to Health Maintenance Results * TROPONIN I, HIGH SENSITIVITY (HSTRP) (09/08/2024 12:24 PM ADULT EDUCATION MANAGER) Only the most recent of2 resultswithin the time period is included. [facility] TROPONIN I, HIGH SENSITIVITY- [place] <3 <=14 ng/L 09/08/2024 1:11 PM ADULT EDUCATION MANAGER [facility] Comment: High-sensitivity troponin I results are reported in ng/L making the result appear to be 1,000 times higher than the contemporary troponin I value which is reported in ng/ml. Results from [place]. Blood Venipuncture / Unknown 09/08/2024 12:24 PM ADULT EDUCATION MANAGER 09/08/2024 12:34 PM ADULT EDUCATION MANAGER us Luna Castro PLANE RUNNER, FIRE CONTROL MECHANIC CHEMISTRY ORDERABL ES Final Result [facility] [address] [place] [address] * (ABNORMAL) Urinalysis w/ Reflex (09/08/2024 11:09 AM ADULT EDUCATION MANAGER) [facility] SPECIFIC GRAVITY 1.020 1.003 - 1.030 09/08/2024 11:39 AM [facility] URINE PH 5.0 5.0 - 9.0 09/08/2024 11:39 AM [facility] WBC ESTERASE 25 /ul(A) Negative 09/08/2024 11:39 AM [facility] NITRITE Negative Negative 09/08/2024 11:39 AM [facility] PROTEIN, RANDOM URINE 30 mg/dL(A) Negative 09/08/2024 11:39 AM [facility] URINE GLUCOSE, QUAL Negative Negative 09/08/2024 11:39 AM [facility] URINE KETONES Negative Negative 09/08/2024 11:39 AM [facility] UROBILINOGEN Normal Normal mg/dL 09/08/2024 11:39 AM [facility] URINE BLOOD Negative Negative radha/ul 09/08/2024 11:39 AM [facility] URINALYSIS COLOR Yellow 09/08/2024 11:39 AM [facility] URINALYSIS CLARITY Slightly Cloudy 09/08/2024 11:39 AM [facility] WBC (Urine) 0-5 Negative, 0-5 /hpf 09/08/2024 11:39 AM [facility] URINE RBC'S 0-2 Negative, 0-2 /hpf 09/08/2024 11:39 AM [facility] EPITHELIAL CELLS Occasional /lpf 09/08/2024 11:39 AM [facility] BACTERIA, URINE Few(A) Negative /hpf 09/08/2024 11:39 AM [facility] Urine URINE SPECIMEN / Unknown Non-Phlebotomy Collection / Unknown 09/08/2024 11:09 AM [facility] 09/08/2024 11:19 AM ADULT EDUCATION MANAGER us Luna Castro PLANE RUNNER, FIRE CONTROL MECHANIC URINE ORDERABLES F inal Result [facility] [address] [place] [address] * XR CHEST SINGLE VIEW PORTABLE (09/08/2024 11:05 AM ADULT EDUCATION MANAGER) Anatomical Region Laterality Modality Chest N/A Digital Radiogra phy 09/08/2024 11:1 9 AM ADULT EDUCATION MANAGER Impressions 09/08/2024 11:21 AM ADULT EDUCATION MANAGER IMPRESSION: Small lung volumes with no acute radiographic abnormality. Narrative 09/08/2024 11:21 AM ADULT EDUCATION MANAGER EXAM DESCRIPTION: XR CHEST SINGLE VIEW PORTABLE REASON FOR STUDY: Left-sided chest pain today. History of GERD. TECHNIQUE: Frontal radiographic view of the chest COMPARISON: Chest radiograph 03/24/2019 FINDINGS: LUNGS/PLEURAE: Small lung volumes. No focal consolidation or large pleural effusion. There is no pneumothorax. HEART/MEDIASTINUM: Heart size is normal. Normal mediastinal and hilar contours. HARDWARE/LINES/TUBES: None. BONES: No acute findings. THIS IS AN ELECTRONICALLY VERIFIED FINAL REPORT 09/08/2024 11:19 AM - Electronically signed by Cameron Gandhi M.D. LB: LB Report ID: [id number] Reading Location: [id number] Procedure Note Cameron Gandhi MD - 09/08/2024 EXAM DESCRIPTION: XR CHEST SINGLE VIEW PORTABLE REASON FOR STUDY: Left-sided chest pain today. History of GERD. TECHNIQUE: Frontal radiographic view of the chest COMPARISON: Chest radiograph 03/24/2019 FINDINGS: LUNGS/PLEURAE: Small lung volumes. No focal consolidation or large pleural effusion. There is no pneumothorax. HEART/MEDIASTINUM: Heart size is normal. Normal mediastinal and hilar contours. HARDWARE/LINES/TUBES: None. BONES: No acute findings. THIS IS AN ELECTRONICALLY VERIFIED FINAL REPORT 09/08/2024 11:19 AM - Electronically signed by Cameron Gandhi M.D. LB: LB Report ID: [id number] Reading Location: [id number] IMPRESSION: Small lung volumes with no acute radiographic abnormality. us Luna Castro APRN, PAVAN IMG DIAGNOSTIC ORD ERABLES Final Result * Gold Top Tube (09/08/2024 10:02 AM ADULT EDUCATION MANAGER) Blood No Phlebotomy Charged / Unknown 09/08/2024 10:02 AM ADULT EDUCATION MANAGER 09/08/2024 10:35 AM ADULT EDUCATION MANAGER us Luna Castro APRN, CNP CHEMISTRY ORDERABL ES Final Result Performing Organization Address [facility] Co de Phone Number [facility] [address] [place] [address] * Blue Top Tube (09/08/2024 10:02 AM ADULT EDUCATION MANAGER) Blood No Phlebotomy Charged / Unknown 09/08/2024 10:02 AM ADULT EDUCATION MANAGER 09/08/2024 10:35 AM ADULT EDUCATION MANAGER us Luna Castro APRN, CNP HEMATOLOGY ORDERAB LES Final Result Performing Organization Address [facility] de Phone Number [facility] [address] [place] [address] * (ABNORMAL) CBC with Auto Differential (09/08/2024 10:02 AM ADULT EDUCATION MANAGER) WBC 10.98 4.00 - 12.00 10(3)/mcL 09/08/2024 10:34 AM ADULT EDUCATION MANAGER [facility] RBC 4.52 3.80 - 5.30 10(6)/mcL 09/08/2024 10:34 AM ADULT EDUCATION MANAGER [facility] HEMOGLOBIN (HGB) 13.9 12.0 - 15.8 g/dL 09/08/2024 10:34 AM ADULT EDUCATION MANAGER [facility] HEMATOCRIT (HCT) 39.8 36.0 - 47.0 % 09/08/2024 10:34 AM ADULT EDUCATION MANAGER [facility] MCV 88.1 82.0 - 96.0 fL 09/08/2024 10:34 AM ADULT EDUCATION MANAGER [facility] MCH 30.8 26.0 - 34.0 pg 09/08/2024 10:34 AM [facility] MCHC 34.9 31.0 - 36.0 g/dL 09/08/2024 10:34 AM [facility] PLATELET COUNT 343 140 - 440 10(3)/[facility] 09/08/2024 10:34 AM [facility] RDW 12.2 11.8 - 15.5 % 09/08/2024 10:34 AM [facility] MPV 8.8(L) 9.7 - 12.4 fL 09/08/2024 10:34 AM [facility] NEUTROPHILS 56.6 47.0 - 73.0 % 09/08/2024 10:34 AM [facility] LYMPHOCYTES 34.5 18.0 - 42.0 % 09/08/2024 10:34 AM [facility] MONOCYTES 5.4 4.0 - 12.0 % 09/08/2024 10:34 AM [facility] EOSINOPHILS 2.7 0.0 - 5.0 % 09/08/2024 10:34 AM [facility] BASOPHILS 0.8 0.0 - 1.0 % 09/08/2024 10:34 AM [facility] ABSOLUTE NEUTROPHILS 6.21 1.60 - 7.70 10(3)/[facility] 09/08/2024 10:34 AM [facility] ABSOLUTE LYMPHOCYTES 3.79(H) 1.30 - 3.20 10(3)/[facility] 09/08/2024 10:34 AM [facility] ABSOLUTE MONOCYTES 0.59 0.20 - 1.00 10(3)/[facility] 09/08/2024 10:34 AM [facility] ABSOLUTE EOSINOPHIL 0.30 0.00 - 0.40 10(3)/[facility] 09/08/2024 10:34 AM [facility] ABSOLUTE BASOPHILS 0.09 0.00 - 0.10 10(3)/[facility] 09/08/2024 10:34 AM [facility] NRBC PER 100 WBC 0 09/08/19 10:34 AM ADULT EDUCATION MANAGER [facility] Blood Venipuncture / Unknown 09/08/2024 10:02 AM ADULT EDUCATION MANAGER 09/08/2024 10:30 AM ADULT EDUCATION MANAGER us Luna Castro APRN, FIRE CONTROL MECHANIC HEMATOLOGY ORDERAB LES Final Result Performing Organization Address City/[facility] Hospital/ZIP Co de Phone Number [facility] [address] [place] [address] * Lipase (09/08/2024 10:02 AM ADULT EDUCATION MANAGER) LIPASE 26 8 - 78 U/L 09/08/2024 11:13 AM ADULT EDUCATION MANAGER [facility] Blood Venipuncture / Unknown 09/08/2024 10:02 AM ADULT EDUCATION MANAGER 09/08/2024 10:30 AM ADULT EDUCATION MANAGER us Luna Castro APRN, FIRE CONTROL MECHANIC CHEMISTRY ORDERABL ES Final Result Performing Organization Address City/[facility]/ZIP Co de Phone Number [facility] [address] [place] [address] * (ABNORMAL) CMP (09/08/2024 10:02 AM ADULT EDUCATION MANAGER) SODIUM 140 136 - 145 mmol/L 09/08/2024 11:13 AM ADULT EDUCATION MANAGER [facility] POTASSIUM 3.9 3.5 - 5.1 mmol/L 09/08/2024 11:13 AM ADULT EDUCATION MANAGER [facility] CHLORIDE 108(H) 98 - 107 mmol/L 09/08/2024 11:13 AM [facility] CO2, VENOUS 22 22 - 30 mmol/L 09/08/2024 11:13 AM [facility] ANION GAP 13.9 <18.0 mmol/L 09/08/2024 11:13 AM [facility] GLUCOSE 165(H) 70 - 99 mg/dL 09/08/2024 11:13 AM [facility] BUN 16 5 - 18 mg/dL 09/08/2024 11:13 AM [facility] CREATININE, BLOOD 0.82 0.60 - 1.00 mg/dL 09/08/2024 11:13 AM [facility] BUN/CREATININE RATIO 20 12 - 20 ratio 09/08/2024 11:13 AM [facility] TOTAL PROTEIN 7.2 6.0 - 8.0 g/dL 09/08/2024 11:13 AM [facility] ALBUMIN 3.7 3.5 - 5.0 g/dL 09/08/2024 11:13 AM [facility] A/G RATIO 1.1 1.0 - 2.2 09/08/2024 11:13 AM [facility] CALCIUM 9.0 8.7 - 10.5 mg/dL 09/08/2024 11:13 AM [facility] T BILI 0.3 0.2 - 1.2 mg/dL 09/08/2024 11:13 AM [facility] SGOT (AST) 25 <43 U/L 09/08/2024 11:13 AM [facility] SGPT (ALT) 35 <56 U/L 09/08/2024 11:13 AM [facility] ALKALINE PHOSPHATASE 79 40 - 150 U/L 09/08/2024 11:13 AM [facility] GFR, ESTIMATED >60 >=60 09/08/2024 11:13 AM [facility] Comment: Creatinine Clearance is the preferred criteria for selecting drug dose adjustments in renally impaired patients. The GFR is provided as additional pertinent clinical information. GFR is reported in mL/min/1.73 sq m. Calculation based on the Chronic Kidney Disease Epidemiology Collaboration (CKD- EPI) equation refit without adjustment for race. GFR, EST. >60 >=60 025 11:13 AM [facility] GFR, EST. NONAFRICAN >60 >=60 09/08/2024 11:13 AM [facility] Blood Venipuncture / Unknown 09/08/2024 10:02 AM ADULT EDUCATION MANAGER 09/08/2024 10:30 AM ADULT EDUCATION MANAGER us Luna Castro APRN, CNP CHEMISTRY ORDERABL ES Final Result Performing Organization Address [facility] Co de Phone Number [facility] [address] [place] [address] * EKG 12 LEAD (09/08/2024 9:58 AM ADULT EDUCATION MANAGER) Ventricular Rate 91 BPM EXTERNAL EKG Atrial Rate 91 BPM EXTERNAL EKG P-R Interval 160 ms EXTERNAL EKG QRS Duration 94 ms EXTERNAL EKG Q-T Duration 370 ms EXTERNAL EKG QTC CALCULATION 455 ms EXTERNAL EKG P [place] 60 degrees EXTERNAL EKG R [place] -12 degrees EXTERNAL EKG T [place] 31 degrees EXTERNAL EKG 09/08/2024 9:5 8 AM ADULT EDUCATION MANAGER Impressions EXTERNAL EKG - 09/09/2024 4:56 PM ADULT EDUCATION MANAGER Normal sinus rhythm Incomplete right bundle branch block Possible Anterior infarct , age undetermined Abnormal ECG When compared with ECG of 14-OCT-2018 22:17, No significant change was found ~ Confirmed by Reid Bhat ([id number]) on 09/09/2024 4:56:09 PM Narrative Procedure Note Reid Bhat MD - 09/09/2024 IMPRESSION: Normal sinus rhythm Incomplete right bundle branch block Possible Anterior infarct , age undetermined Abnormal ECG When compared with ECG of 14-OCT-2018 22:17, No significant change was found ~ Confirmed by Reid Bhat ([id number]) on 09/09/2024 4:56:09 PM us Luna Castro APRN, CNP IMG ECG ORDERABLES Final Result Performing Organization Address City/[facility] Hospital/ZIP Co de Phone Number EXTERNAL EKG * RHYTHM STRIP (09/08/2024 12:00 AM ADULT EDUCATION MANAGER) 09/08/2024 us Provider Scan IMG ECG ORDERABLES Final Result RESULTING AGENCY * EKG SCAN (09/08/2024 12:00 AM ADULT EDUCATION MANAGER) Only the most recent of2 resultswithin the time period is included. 09/08/2024 us Provider Scan IMG ECG ORDERABLES Final Result Performing Organization Address [facility] Co de Phone Number RESULTING AGENCY * Hepatitis Panel Acute (AHP) (10/17/2015 5:30 PM CDT) HEPATITIS A IGM ANTIBODY NON DETECTED NON DETECTED 10/18/2015 10:30 PM CDT [facility] Comment: IGM Antibodies to HAV not detected. Does not exclude early acute or recovered HAV infection. HEP B CORE AB (IGM) NON DETECTED NON DETECTED 10/18/2015 10:30 PM CDT [facility] Comment: IGM anti-HBC not detected. Does not exclude the possibility of exposure to or infection with HBV. HEPATITIS B SURFACE ANTIGEN NON DETECTED NON DETECTED 10/18/2015 10:30 PM CDT [facility] hepatitis C antibody 0.13 <1 S/CO 10/18/2015 10:30 PM CDT [facility] Comment: Signal/Cutoff ratio < 0.79 is Nondetected Signal/Cutoff ratio 0.80-0.99 is Grayzone Signal/Cutoff ratio > 0.99 is Detected Supplemental assays are recommended if signal/cutoff ratio is >/=1.00. Signal/cutoff ratio result >/= 5.00 is 97% predictive of positivity for recombinant immunoblot assay (RIBA) and will be reported to the [place] Department of Public Health as required. Blood specimen (specimen) Butterfly Puncture / Unknown 10/17/2015 5:30 PM CDT 10/17/2015 6:09 PM CDT us Lenard R Sebastienish PAC HEMATOLOGY ORDERABLES Final R esult Performing Organization Address City/[facility] Hospital/ZIP Co de Phone Number [facility] [address] [place] [address] from Last 3 Months or Most Recently Relevant to Health Maintenance Insurance Advance Directives * Full Code (Latest Code Status on File) Date Activated Date Inactivated Comments 11/04/2016 9:27 AM 11/04/2016 4:28 PM CPR-Full Kelechi atment: FULL ARREST: Attempt Resuscitation/CPR wit intubation and mechanical ventilation. PRE-ARREST: Use entire range of life support measures to stabilize the patient. Care Teams High Lift Driver Relationship Specialty Start Date End Date Argenis Garcia MD [address] [place] [address] [id number] [place] [address] PCP - General Internal Medicine 07/22/21 Joyce Trujillo APRN, PAVAN [address] [place] [address] Nurse Practitioner Cardiology 09/15/24
--- OUTSIDE RECORDS SUMMARY | 2024-10-12 15:09 | XMS_ITS | Continuity of Care Document ---
Author Organization [email or web address] Address [address] [place] [address] [address] [place] [address] Phone Care Team Providers Care Nursing Services Manager Name Role Phone Barb Torrez OT Unavailable Unavailable Procedures Procedure Date OT Evaluation Low Complexity Therapeutic Activities Orthotic Mgmt and Training HFO w/o joints CF Advance Directives Directive Yes / No Effective Date File Name No Information Encounters Encounter Description Practice Location Reason(s) For Visit Diagnoses Date Provider Providers Copied on Encounter [facility], [address] [place], [place] [address], [place], [place], [id number], [place] tel:[phone] [place] No Information [place]. . Referring Provider: Nick Lucas, [address] [facility] [address], [place], [address]. tel:[phone] Family History Family Member Type Diagnosis Age At Onset No Information Payers Payer name Insurance type Covered alliance party ID Tigist sin(s) [employer] Insurance [facility] [id number] Social History Type Description Quantity Date Captured [...]
[2024-10-12 15:11] VITALS: BP 140/84; PULSE 87; RESP 16; TEMP 36.1; O2SAT 98
--- NOTE | 2024-10-12 15:22 | ED_ITS ---
HPI - Skin/Abscess/Foreign Bdy General Chief complaint: Skin/Abscess/Foreign Body Stated complaint: Rash Time Seen by Provider: 10/12/24 15:22 Source: patient Mode of arrival: ambulatory Limitations: no limitations History of Present Illness HPI narrative: 44-year-old female presents with complaint of itchy rash for the past 2-3 days. Rash is just below breast in between breast And chest. Patient states she got a new trauma a week ago. Unsure if that could be cause rash. Has not used any [id number] medications to treat allergic reaction symptoms. All systems reviewed and negative except as noted above. Related Data Home Medications ?Medication ?Instructions ?Recorded ?Confirmed ?Last Taken ?Type esomeprazole magnesium 20 mg 20 mg PO DAILY 06/21/22 10/12/24 Unknown History capsule,delayed release (Nexium) valsartan 160 mg tablet 160 mg PO DAILY 06/21/22 10/12/24 Unknown History semaglutide 0.25 mg or 0.5 mg (2 mg subcut 04/03/23 Unknown History mg/3 mL) subcutaneous pen injector (Ozempic) estradiol 1 mg tablet mg 10/12/24 Unknown History insulin glargine 100 unit/mL (3 unit subcut 10/12/24 Unknown History mL) subcutaneous pen (Lantus Solostar U-100 Insulin) valsartan 320 mg tablet mg 10/12/24 Unknown History Allergies Allergy/AdvReac Type Severity Reaction Status Date / Time cephalexin Allergy Unknown Rash Verified 10/12/24 15:08 codeine Allergy Unknown Swelling Verified 10/12/24 15:08 Sulfa (Sulfonamide Allergy Unknown Dyspnea / Verified 10/12/24 15:08 Antibiotics) SOB floxacin Allergy Unknown Dyspnea / Uncoded 10/12/24 15:08 SOB Review of Systems Review of Systems: CONSTITUTIONAL: Denies fever, chills, or sweats. EYES: Denies visual changes, redness, or discharge. ENT: Denies rhinorrhea, congestion, sore throat, or otalgia. CARDIOVASCULAR: Denies chest pain, palpitations, or edema. RESPIRATORY: Denies cough or dyspnea. GASTROINTESTINAL: Denies abdominal pain, nausea, vomiting, or diarrhea. GENITOURINARY: Denies dysuria or hematuria. SKIN: Reports rash and itching. MUSCULOSKELETAL: Denies back pain, joint pain, or myalgia. NEUROLOGIC: Denies headache, numbness, or weakness. PSYCHIATRIC: Denies anxiety or depression. All other systems reviewed are negative, except as documented in HPI. [facility] Past Medical History Medical History Arthritis Boils COVID-03 August 2021 Diabetes GERD (gastroesophageal reflux disease) Hypertension Surgical History Surgical History H/O arthroscopic knee surgery Social History Social History Smoking packs per day: 0.75 Smoking cigarettes per day: 15.0 Years smoked: 30 Smoking pack-years: 22.50 Smoking status: Current every day smoker Tobacco type: cigarettes Alcohol intake: unknown Substance use type: does not use Gender identity (if verbalized by the patient): Female Comments At time of signature, agree with nursing past medical, surgical, social and family history. There is no relevant family history pertinent to the presenting complaint. Exam Narrative: GENERAL: This is a well-nourished, well-developed patient, in no apparent distress. HEAD: normocephalic, atraumatic. EYES: PERRL. Sclera clear/white. Vision is grossly intact. EARS: External ears normal, NOSE: External nose normal NECK: Neck supple, non-tender without lymphadenopathy, masses or thyromegaly. CARDIOVASCULAR: Regular rate and rhythm without murmurs, gallops, or rubs. RESPIRATORY: Clear to auscultation. Breath sounds equal bilaterally. No wheezes, rales, or rhonchi. SKIN: warm, Dry, intact, good texture and turgor. erythematous scaly rash mostly below breasts, with a little inbetween breasts and chest. no drainage. NEURO: awake, alert, and oriented to person, place and time. There were no obvious focal neurologic abnormalities. EXTREMITIES: No joint tenderness, effusion, or edema noted. Course Course Level of Care: Express Care Visit Vital Signs Vital signs: reviewed MDM - Skin/Abscess/Foreign Bdy MDM Narrative Medical decision making narrative: erythematous rash to chest area most likely contact dermatitis. Recommend follow-up with primary care physician if not improving. Patient is well- appearing, nontoxic. Please be advised this is a medical document. It is intended for [id number] communication. It is written in medical language and may contain unfamiliar abbreviations or verbiage. Medical documents are intended to carry relevant information, facts as evident, and the clinical opinion of the practitioner at the time of the encounter. This report may have been done utilizing a voice recognition system. Attempts have been made to correct errors. However, there may be uncorrected grammatical, spelling, and recognition errors present. The file time of this note does not necessarily represent the time of service. Differential Diagnosis Differential diagnosis: Likely contact dermatitis Discharge Plan Discharge Clinical Impression: Rash and other nonspecific skin eruption Patient Disposition: Home, Self-Care Condition: Stable Instructions: Acute Rash (ED) Additional Instructions: Apply steroid cream sparingly to affected area. Use a moisturizer twice a day such as Aquaphor or Vaseline. Taking antihistamine daily such as Claritin or Zyrtec until symptoms resolve. Follow-up with primary care physician as needed. Patient Language: Bulgarian Prescriptions: New triamcinolone acetonide 0.1 % cream 1 applic topical TID PRN (Reason: rash) Qty: 30 0RF No Action Ozempic 0.25 mg or 0.5 mg (2 mg/3 mL) pen injector SUBCUT estradiol 1 mg tablet valsartan 320 mg tablet insulin glargine [Lantus Solostar U-100 Insulin] 100 unit/mL (3 mL) insulin pen SUBCUT esomeprazole magnesium [Nexium] 20 mg Capsule,Delayed Release(Dr/Ec) 20 mg PO DAILY valsartan 160 mg tablet 160 mg PO DAILY Follow-up/Referrals: Maryann,MAXIMINO More [Primary Care Provider] - Time of Disposition: 15:30
== END 2024-10-12 15:33 | disposition home or self-care (01) ==
PROVIDERS: Emergency Provider Nurse Practitioner Family; PCP Nurse Practitioner Family
DX: R21 Rash and other nonspecific skin eruption (principal); F17.210 Nicotine dependence, cigarettes, uncomplicated; E11.9 Type 2 diabetes mellitus without complications; I10 Essential (primary) hypertension; K21.9 Gastro-esophageal reflux disease without esophagitis; M19.90 Unspecified osteoarthritis, unspecified site; Z86.16 Personal history of COVID-19
CPT/HCPCS: 99213; G0463

== ENCOUNTER 2025-04-20 13:28 | Emergency (ER) | payer OTHER, SELFPAY ==
--- NOTE | ~2025-04-20 | XR_ITS ---
EXAMINATION: XR foot RT min 3V DATE: 04/20/2025 14:19 INDICATION: Dorsal right foot pain after injury with pop while walking TECHNIQUE: Dorsoplantar, two oblique and lateral views of the right foot were obtained. COMPARISON: None. FINDINGS: Bone alignment is normal. No fracture. Corticated os peroneum which projects along the lateral margin of the fifth tarsal metatarsal joint slightly more distal than typical. Mild osteoarthritis at the first metatarsophalangeal and a few tarsometatarsal and interphalangeal joints. Small plantar calcaneal spur. Soft tissues are unremarkable. IMPRESSION: 1. Mild degenerative skeletal changes with no evident acute osseous abnormality. 2. Os peroneum which project slightly more distal than typical and raises concern for possible tear of the more proximal peroneus longus tendon. Correlate clinically for signs/symptoms consistent with tear of the tendon and if clinically indicated could consider MRI of the right ankle and hindfoot for further evaluation. Reviewed, dictated and finalized at location A. IMPRESSION: 1. Mild degenerative skeletal changes with no evident acute osseous abnormality . 2. Os peroneum which project slightly more distal than typical and raises sanket rn for possible tear of the more proximal peroneus longus tendon. Correlate cli nically for signs/symptoms consistent with tear of the tendon and if clinically indicated could consider MRI of the right ankle and hindfoot for further evalu ation.
[2025-04-20 13:38] VITALS: BP 122/84; PULSE 106; RESP 20; TEMP 36.6; O2SAT 98
--- NOTE | 2025-04-20 14:25 | ED.LOWEXIN ---
HPI - Extremity Injury (Lower) General Chief Complaint: Extremity Injury, Lower Stated Complaint: WC Right foot injury Time Seen by Provider: 04/20/25 13:58 Source: patient and RN notes reviewed Mode of arrival: ambulatory Limitations: no limitations History of Present Illness HPI Narrative: 44 year old female patient presents today complaining of right foot pain. He was at work this morning walking on an uneven ground. At 1120, her foot twisted slightly and the foot popped, experiencing sudden pain to the dorsum. Currently rates pain 6/10 and has tried ice without improvement. Denies numbness or tingling. Related Data Home Medications ?Medication ?Instructions ?Recorded ?Confirmed ?Last Taken ?Type esomeprazole magnesium 20 mg 20 mg PO DAILY 06/21/22 04/20/25 Unknown History capsule,delayed release (Nexium) semaglutide 0.25 mg or 0.5 mg (2 mg subcut 04/03/23 Unknown History mg/3 mL) subcutaneous pen injector (Ozempic) estradiol 1 mg tablet mg 10/12/24 Unknown History insulin glargine 100 unit/mL (3 unit subcut 10/12/24 Unknown History mL) subcutaneous pen (Lantus Solostar U-100 Insulin) valsartan 320 mg tablet mg 10/12/24 Unknown History atorvastatin 40 mg tablet mg 04/20/25 Unknown History Allergies Allergy/AdvReac Type Severity Reaction Status Date / Time cephalexin Allergy Unknown Rash Verified 04/20/25 13:53 codeine Allergy Unknown Swelling Verified 04/20/25 13:53 Sulfa (Sulfonamide Allergy Unknown Dyspnea / Verified 04/20/25 13:53 Antibiotics) SOB floxacin Allergy Unknown Dyspnea / Uncoded 10/12/24 15:08 SOB PMFSH Past Medical History Medical History Boils Arthritis COVID-03 August 2021 GERD (gastroesophageal reflux disease) Diabetes Hypertension Surgical History Surgical History H/O arthroscopic knee surgery Social History Social History Smoking packs per day: 0.75 Smoking cigarettes per day: 15.0 Years smoked: 30 Smoking pack-years: 22.50 Smoking status: Current every day smoker Tobacco type: cigarettes Alcohol intake: unknown Substance use type: does not use Gender identity (if verbalized by the patient): Female Comments At time of signature, I have reviewed and agree with nursing past medical, surgical, social and family history unless otherwise noted. Please see nursing chart for further information. There is no relevant family history pertinent to the presenting complaint Exam Narrative: GENERAL: Well-appearing, well-nourished, and in no acute distress. HEAD: Normocephalic, atraumatic. EYES: EOMI. No redness or drainage. Conjunctivae normal. ENT: Mucous membranes pink and moist. NECK: Normal AROM. CHEST: No respiratory distress. EXTREMITIES: Right foot: Tenderness to the dorsum of the foot at the distal 2-3 metatarsal. No edema, ecchymosis, erythema, or deformity noted. Distal sensation intact. Capillary refill normal. Pedal pulse normal. Full range of motion of the toes and ankle. No tenderness to the ankle. SKIN: Warm, dry, no rash. Capillary refill normal. Normal skin turgor. NEURO: No focal deficits. Alert and oriented x3. Gait steady. PSYCH: Normal affect. No signs of depression or anxiety. Course Course Level of Care: Express Care Visit Vital Signs Vital signs: Vital Signs Temperature 97.8 F 04/20/25 13:38 Pulse Rate 106 H 04/20/25 13:38 Respiratory Rate 20 04/20/25 13:38 Blood Pressure 122/84 04/20/25 13:38 Pulse Oximetry 98 04/20/25 13:38 Oxygen Delivery Room Air 04/20/25 13:38 Temperature 97.8 F 04/20/25 13:38 Pulse Rate 106 H 04/20/25 13:38 Respiratory Rate 20 04/20/25 13:38 Blood Pressure 122/84 04/20/25 13:38 Pulse Oximetry 98 04/20/25 13:38 Oxygen Delivery Room Air 04/20/25 13:38 Reviewed MDM - Extremity Injury (Lower) MDM Narrative Medical decision making narrative: 44 year old female patient presents today complaining of right foot pain. He was at work this morning walking on an uneven ground. At 1120, her foot twisted slightly and the foot popped, experiencing sudden pain to the dorsum. Currently rates pain 6/10 and has tried ice without improvement. Exam shows mild tenderness to the dorsum of the foot at the base of toes 2 and 3 without erythema, edema, or ecchymosis. Neurovascularly intact. X-ray negative for acute findings. Pancho wrap applied. Recommend conservative treatment for 7-10 days with orthopedic or podiatry follow-up if symptoms persist. Patient agrees with plan. Recommend follow up with her employer regarding workman's compensation requirements. Vital signs stable. Anticipatory guidance given. Differential Diagnosis Differential diagnosis: Likely other (Foot fracture, foot sprain) Imaging Data Radiologist's impression: ITS Impressions Foot X-Ray 04/20/25 14:35 IMPRESSION: 1. Mild degenerative skeletal changes with no evident acute osseous abnormality. 2. Os peroneum which project slightly more distal than typical and raises concern for possible tear of the more proximal peroneus longus tendon. Correlate clinically for signs/symptoms consistent with tear of the tendon and if clinically indicated could consider MRI of the right ankle and hindfoot for further evaluation. Critical Care Time Critical Care Time Critical Care Time: No Discharge Plan Discharge Clinical Impression: Right foot sprain Qualifiers: Encounter type: initial encounter Qualified Code(s): S93.601A - Unspecified sprain of right foot, initial encounter Patient Disposition: Home Condition: Stable Instructions: Foot Sprain (ED) Additional Instructions: Your x-ray is negative for any acute fractures. Elevate and ice the foot. Wear the Pancho wrap for comfort and compression. You may consider following up with orthopedics or podiatry in 7-10 days if symptoms are not improving. Follow-up with your employer regarding workman's compensation requirements as return to work instruction cannot be provided by [facility]. Patient Language: Mohawk Prescriptions: No Action Ozempic 0.25 mg or 0.5 mg (2 mg/3 mL) pen injector SUBCUT estradiol 1 mg tablet valsartan 320 mg tablet insulin glargine [Lantus Solostar U-100 Insulin] 100 unit/mL (3 mL) insulin pen SUBCUT esomeprazole magnesium [Nexium] 20 mg Capsule,Delayed Release(Dr/Ec) 20 mg PO DAILY atorvastatin 40 mg tablet Follow-up/Referrals: Troy Woods DPM [Physician, Podiatry] PHYSICIAN NOT ON STAFF,NONSTAFF [Primary Care Provider] Dayton Thompson MD [Physician, Orthopedics] Time of Disposition: 14:58
--- OUTSIDE RECORDS SUMMARY | 2025-04-20 14:27 | XMS_ITS | Clinical Summary ---
Author Organization [facility] Address [address] [place] [address] Phone Care Team Providers Care Reheater Helper Name Role Phone Joyce Trujillo APRN, AGRONOMIST Unavailable Marisela Guerrero SECURITY PUBLIC SAFETY OFFICER, AGRONOMIST Primary Care Provider [phone] Allergies Active Allergy Reactions Criticality Noted Date Comments Codeine Vomiting 10/17/2015 Ofloxacin Rash 10/17/2015 Cephalexin Swelling 09/05/2016 Sulfa Antibiotics Shortness of Breath 6 Medications Blood Glucose Monitoring Suppl (GlucoCom Blood Glucose Monitor) Device Check blood sugar three times daily 3 Active estradiol (ESTRACE) 1 MG Tablet Take 1 mg by mouth daily. Active Glucose Blood (OneTouch Verio) Strip Check blood sugar 3 times daily 3 Active ibuprofen (MOTRIN) 600 MG Tablet Take 600 mg by mouth. 2 Active Lantus SoloStar 100 UNIT/ML Solution Pen-injector INJECT 20 UNITS UNDER THE SKIN NIGHTLY INJECT 20 UNITS TOTAL UNDER THE SKIN ONCE NIGHTLY 5 Active Insulin Pen Needle (BD Pen Needle Short Ultrafine) 31G X 8 MM Misc USE TO INJECT 1-4 TIMES DAILY DIRECTED. 4 Active metaxalone (SKELAXIN) 800 MG Tablet TAKE 1 TABLET BY MOUTH 3 TIMES A DAY NEEDED Active Ozempic, 0.25 or 0.5 MG/DOSE, 2 MG/3ML Solution Pen-injector inject 0.5 mg under the skin once a week Active atorvastatin (LIPITOR) 40 MG Tablet Take 40 mg by mouth every evening. Active esomeprazole (NexIUM) 20 MG CAPSULE DELAYED RELEASE Take 20 mg by mouth. Active ondansetron (ZOFRAN) 4 MG Tablet Take 4 mg by mouth. 8 Active Valsartan 320 MG TabletIndications :Primary hypertension Take 1 Tablet by mouth daily for 364 days. 90 Tablet 2 5 01/26/20 26 Active Active Problems No known active problems Encounters Date Type Department Care Team Description 03/12/2025 Telephone [facility] [address] [place] [address] Marisela Guerrero APRN, PAVAN 01/26/2025 11:00 AM CDT Office Visit [facility] [address] [place] [address] Marisela Guerrero APRN, AGRONOMIST Encounter for preventative adult health care exam with abnormal findings (Primary Dx); Primary hypertension Discharge Disposition: Discharged to home or Selfcare 01/26/2025 Telephone [facility] [address] [place] [address] Marisela Guerrero, CEM, AGRONOMIST Prior Authorization 01/26/2025 Travel 01/24/2025 Telephone [facility] [address] [place] [id number] Argenis Wolf, SECURITY PUBLIC SAFETY OFFICER, AGRONOMIST Medication Management from Last 3 Months Immunizations Immunization Administration Dates Next Due Influenza Vaccine, MDCK,quadrivalent, pres free 04/12/2022 Influenza, Injectable, Quadrivalent 08/27/2018 Influenza,Split Virus,Trivalent,Injectable,PF ,05/06/2014 Pneumococcal Vaccine Adult - 23 Valent 0 TDAP Vaccine 03/15/2020 Tetanus Toxoid, Unspecified Formulation 07/16/19 16 Social History Tobacco Use Types Packs/Day Years Used Date Smoking Tobacco: Every Day Cigarettes Smokeless Tobacco: Never Tobacco Cessation:Ready to Q uit: No; Counseling Given: Yes Alcohol Use Standard Drinks/Week Comments No 0 (1 standard drink = 0.6 oz pur e alcohol) PHQ-2 Answer Date Recorded Total Score - Questions 1-9 2 01/13 Comments No Sex and Gender Information Value Date Recorded Sex Assigned at Not on file Legal Sex Female 11:44 PM CDT Gender Identity Not on file Sexual Orientation Not on file Last Filed Vital Signs Vital Sign Reading Time Taken Comments Blood Pressure 122/80 01/26/2025 11:00 AM CDT Pulse 86 01/26/2025 11:00 AM CDT Temperature 36.1 C (96.9 F) 01/26/2025 11:00 AM CDT Respiratory Rate 16 01/26/2025 11:0 0 AM CDT Oxygen Saturation 96% 01/26/2025 11: 00 AM CDT Inhaled Oxygen Concentration - - Weight 100.7 kg (221 lb 14.4 oz) 2024 11:00 AM CDT Height 162.6 cm (5' 4) 01/26/2025 11:0 0 AM CDT Body Mass Index 38.09 01/26/2025 11:00 AM CDT Plan of Treatment Upcoming Encounters Date Type Department Care Team (Late st Contact Info) Description 2025 10:30 AM AGILE PROJECT MANAGER Office Visit [facility] [address] [place] [address] Marisela Guerrero N, SECURITY PUBLIC SAFETY OFFICER, AGRONOMIST 2 [facility], [address] [place] [address] Health Maintenance Due Date Last Done Comments Hepatitis B Immunization (1 of 3 - 19+ 3-dose series) 1997 Pneumococcal Immunization Combined (2 of 2 - PCV) 03/29/2021 03/29/2020 Cologuard 2023 Colonoscopy 2023 Colorectal Cancer Screening 2023 Immunochemical Fecal Occult Blood 2023 Influenza Immunization (#1) 03/16/202508/2023, 04/12/2022, 08/27/2018, Additional history exists Mammogram 10/16/2025 10/16/2024, 01/2021, 04/05/2021 Td Immunization Every 10 Years (Adults With 1 Tdap) 03/15/2030 03/15/2020 Respiratory Syncytial Virus (RSV) Immunization (Adult) (1 - 1-dose 75+ series) 2053 Hepatitis C Virus (HCV) Screening Completed 10/17/2015 DTaP/Tdap/Td Immunization Discontinued 03/15/2020 TdaP Immunization Discontinued 03/15/2020 SARS-COV-2 Immunization Completed 04/16/20 24, 10/05/2020, 09/07/2020 Discussion re Starting/Frequency of Mammograms Completed 10/16/2024, 04/05/2021 Human Papillomavirus (HPV) Immunization Aged Out No longer eligible based on patient's age to complete this topic Meningococcal Immunization (ACWY) Aged Out No longer eligible based on patient's age to complete this topic Rotavirus Immunization Aged Out No lo nger eligible based on patient's age to complete this topic Procedures Procedure Name Priority Date/Time Associated Diagnosis Comments HEPATITIS PANEL ACUTE (AHP) STAT 10/17/2015 5:30 PM CDT from Last 3 Months or Most Recently Relevant to Health Maintenance Results * Hepatitis Panel Acute (AHP) (10/17/2015 5:30 PM CDT) HEPATITIS A IGM ANTIBODY NON DETECTED NON DETECTED 10/18/2015 10:30 PM CDT [facility] Comment: IGM Antibodies to HAV not detected. Does not exclude early acute or recovered HAV infection. HEP B CORE AB (IGM) NON DETECTED NON DETECTED 10/18/2015 10:30 PM CDT [facility] Comment: IGM anti-HBC not detected. Does not exclude the possibility of exposure to or infection with HBV. HEPATITIS B SURFACE ANTIGEN NON DETECTED NON DETECTED 10/18/2015 10:30 PM CDT [facility] hepatitis C antibody 0.13 <1 S/CO 10/18/2015 10:30 PM CDT [facility] Comment: Signal/Cutoff ratio < 0.79 is Nondetected [...] CDT 10/17/2015 6:09 PM CDT us Lenard Marrero PAC HEMATOLOGY ORDERABLES Final R esult [facility] [address] [place] [address] from Last 3 Months or Most Recently Relevant to Health Maintenance Insurance [facility] Advance Directives * Full Code (Latest Code Status on File) Date Activated Date Inactivated Comments 11/04/2016 9:27 AM 11/04/2016 4:28 PM CPR-Full Kelechi atment: FULL ARREST: Attempt Resuscitation/CPR wit intubation and mechanical ventilation. PRE-ARREST: Use entire range of life support measures to stabilize the patient. Care Teams Reheater Helper Relationship Specialty Start Date End Date Yolanda October Rock, CEM, PAVAN [address] [address] PCP - General Advanced Practice Nurse 01/26/25 Joyce Trujillo APRN, PAVNA [address] [place] [address] Nurse Practitioner Cardiology 09/15/24
--- OUTSIDE RECORDS SUMMARY | 2025-04-20 14:27 | XMS_ITS | Clinical Summary ---
Author Organization [facility] Address [address] [place] [address] Care Team Providers Care Record Keeper Name Role Phone Maryann Argenis Garcia NP Primary Care Provider + [phone] Allergies Active Allergy Reactions Criticality Noted Date [...] by mouth daily 3 Active blood-glucose meter (Enservco CorporationTouch Verio Flex meter) miscIndications:Ty pe 2 diabetes mellitus with hyperglycemia, without long-term current use of insulin ([facility]) Check blood sugar three times daily 1 each 3 Active blood glucose diagnostic (OneTouch Verio test strips) stripIndications:T ype 2 diabetes mellitus with hyperglycemia, without long-term current use of insulin ([facility]) Check blood sugar 3 times daily 200 [...] atorvastatin (LIPITOR) 40 mg tablet 4 Active pen needle, diabetic (BD Ultra-Fine Short Pen Needle) 31 gauge x 5/16 needleIndications: Type 2 diabetes mellitus with hyperglycemia, with long-term current use of insulin ([facility]) USE TO INJECT 1-4 TIMES DAILY DIRECTED. 400 each 2 4 Active estradioL (ESTRACE) 1 mg tabletIndications: Type 2 diabetes mellitus with hyperglycemia, with long-term current use of insulin ([facility]) Take 1 tablet (1 mg total) by mouth daily 30 tablet 11 5 Active semaglutide (Ozempic) 0.25 mg or 0.5 mg (2 mg/3 mL) pen injector injectionIndicatio ns:Type 2 diabetes mellitus with hyperglycemia, without long-term current use of insulin ([facility]) Inject 0.5 mg under the skin once a week 3 mL 5 Active insulin glargine (LANTUS) 100 unit/mL (3 mL) pen for injectionIndicatio ns:Type 2 diabetes mellitus with hyperglycemia, without long-term current use of insulin ([facility]) Inject 20 Units under the skin nightly INJECT 20 UNITS TOTAL UNDER THE SKIN ONCE NIGHTLY 15 mL 5 10/15/19 26 Active icosapent ethyL (VASCEPA) 1 gram capsule Take 2 capsules (2 g total) by mouth 2 (two) times a day 360 capsule 3 5 10/21/19 26 Active fenofibrate (TRIGLIDE) 160 mg tablet Take 1 tablet (160 mg total) by mouth daily 30 tablet 11 5 01/29/20 26 Active Active Problems Problem Noted Date Diagnosed [...] daily. Assessment & Plan (08/10/2023 10:16 AM INFORMATION SYSTEMS PROFESSOR): Chronic problem. Controlled on current valsartan 320mg [...] but has improved. Last lipid panel: 02/02/23 ODQ=525 JI=765. 08/10/23 YQP=568 EI=581 Assessment & Plan (08/10/2023 10:19 AM INFORMATION SYSTEMS PROFESSOR): Chronic problem. Not at goal on current Atorvastatin 40mg. Last lipid panel: 02/02/23 IQZ=866 BJ=294. Will update lipid panel today. Verified that she uses my[facility]. Aware to check results/results letter in [employer]. Will contact by phone if needed. Assessment & Plan (05/09/2023 11:15 AM CDT): Chronic problem. Not at goal on current Atorvastatin 20mg. Last lipid panel: 02/02/23 KYM=887 SS=466. Diet has changed; will update lipid at [...] UTD on labs. DM eye exam 2022 [facility] in . 2nd request sent. Strive for [...] infection. Assessment & Plan (08/10/2023 10:34 AM INFORMATION SYSTEMS PROFESSOR): Chronic problem. Uncontrolled but A1c improved from 8.4% 05/09/23 to now 7.8%. Current medications: Ozempic 0.5mg weekly Lantus 20 units nightly Had DM eye exam 2022 at [facility] in ; letter sent to get copy of report. UTD on labs but will update lipid/bmp today. Verified that she uses [facility]. Aware to check results/results letter in [employer]. Will contact by phone if needed. [facility] [...] daily. Had DM eye exam 2021 at [facility] in ; letter sent to get copy of report. Aware to call to schedule this years appt. Will update MA/Cr today. Trying to sign on to [employer]--will send results there if able to logon. [...] Arthritis Current smoker 12/08/2014 Overview (10/21/2016): Smoker Surgical History Surgery Date Site/Laterality Comments TUBAL LIGATION HYSTERECTOMY 07/16/2018 - 07/15/2019 OOPHORECTOMY 07/16/2018 - 07/15/2019 Bilateral BREAST BIOPSY 04/21/2021 Bilateral 1 clip placed in each breast BREAST BIOPSY 04/21/2021 Right BREAST BIOPSY 04/21/2021 Left Medical History Medical History Date Comments Hx Other Medical Tubal ligation 2004; Comments: ANGÉLICA 12/08/2014 - GERD (gastroesophageal reflux disease) Arthritis [...] on file Legal Sex Female 3:25 AM INFORMATION SYSTEMS PROFESSOR Gender Identity Not on file Sexual Orientation Straight 03/31/2024 11 :10 AM CDT Obstetrics History Para Term AB IAB SAB Ectopic Multiple Livin g Live Births 3 3 3 Date Outcome GA Total Labor Labor/2nd/3rd Weight Sex Type Anes PTL Barbara A1 A5 Name Clin Term Term Term Last Filed Vital Signs Vital Sign Reading Time Taken Comments Blood Pressure 120/72 10/14/2024 11:03 AM CDT Pulse 86 10/14/2024 11:03 AM CDT Temperature 37.3 C (99.1 F) 08/01/2023 6:00 PM INFORMATION SYSTEMS PROFESSOR Respiratory Rate 16 10/14/2024 11:03 AM CDT Oxygen Saturation 94% 08/02/2023 3:30 AM INFORMATION SYSTEMS PROFESSOR Inhaled Oxygen Concentration - - Weight 96.6 kg (213 lb) 10/14/2024 11:03 AM CDT Height 162.6 cm (5' 4) 10/14/2024 11:03 AM CDT Body Mass Index 36.56 10/14/2024 11:03 AM CDT Plan of Treatment Upcoming Encounters Date Type Department Care Team (Late st Contact Info) Description 06/03/2025 7:30 AM INFORMATION SYSTEMS PROFESSOR Hospital Encounter [address] [id number] Brian Lopez DO [address] [facility] [address] [place] [address] 06/03/2025 7:30 AM INFORMATION SYSTEMS PROFESSOR - 06/03/2025 8:00 AM INFORMATION SYSTEMS PROFESSOR Surgery [address] [address] Brian Lopez DO [address] [facility] [address] [place] [address] COLONOSCOPY Scheduled Procedures Name Priority Associated Diagnoses Date/Ti me COLONOSCOPY Encounter for screening colonoscopy 06/03/2025 7:30 AM INFORMATION SYSTEMS PROFESSOR Health Maintenance Due Date Last Done Comments Colon Cancer Screening-Colonoscopy 1978 Hepatitis C Screening 1978 Dilated Eye Exam 1978 Hepatitis B Screening 1996 Regular Well Visit/Exam 18-64 1996 Pneumococcal vaccine <65 (2 of 2 - PCV) 03/29/2021 03/29/2020 Foot Exam 05/09/2024 05/09/2023 Covid-19 Vaccine ( season) 2025 10/05/2020, 09/07/2020 Influenza Vaccine (#1) 2025 , 04/12/2022, 08/27/2018, Additional history exists Depression Screening 03/31/2025 03/31/2024 Hemoglobin A1C 04/15/2025 10/14/2024, 03/16, 11/16/2023, Additional history exists Albumin Creatinine Ratio, Urine 10/14/2025 10/14/2024, 05/09/2023 Lipid Panel 10/14/2025 10/14/2024, 07/17, 02/02/2023 eGFR 10/14/2025 10/14/2024, 07/17, 08/01/2023, Additional history exists Breast Cancer Screening-Mammogram 10/16/2025 10/16/2024, 04/05/2021 DTaP/Tdap/Td Vaccine (2 - Td or Tdap) 03/15/2030 03/15/2020 HPV Vaccines Aged Out No longer eligi ble based on patient's age to complete this topic Medical Devices Implanted Type Area Clinical Dietitian Device Identifier Shelf Expiration Date Model / Serial / Lot Bard Peripheral Vascular [id number] Ultraclip Bard 17ga 10cm 2 Trigger Permanent Ultrasound - [id number] - [id number] Implanted:Qty: 1 on 04/21/2021 by Brett Cuadra MD at [facility] Breast Left: Breast Bard Peripheral Vascular 01/11/2024 [id number] / [id number] / Description:Implanted Left B reast 2:00 area 9 cmfn Bard Peripheral Vascular [id number] Ultraclip Bard 17ga 12cm 2 Trigger Permanent Ultrasound - [id number] - [id number] Implanted:Qty: 1 on 04/21/2021 by Brett Cuadra MD at [facility] Breast Right: Breast Bard Peripheral Vascular 02/10/2024 [id number] / [id number] / Description:Implanted Right Breast 7:00 area 2 cmfn Procedures Procedure Name Priority Date/Time Associated Diagnosis Comments SCREENING MAMMOGRAM BILATERAL W KVNG Schedule Routine, Read Routine (OP Routine) 10/16/2024 3:48 PM CDT Encounter for screening mammogram for malignant neoplasm of breast EGFR Routine 10/14/2024 12:16 PM CDT Type 2 diabetes mellitus with hyperglycemia, with long-term current use of insulin (HCC) Hypertension associated with type 2 diabetes mellitus (HCC) LIPID PANEL Routine 10/14/2024 12:16 PM CDT Hyperlipidemia associated with type 2 diabetes mellitus (HCC) ALBUMIN CREATININE RATIO, URINE Routine 10/14/2024 12:16 PM CDT Hypertension associated with type 2 diabetes mellitus (HCC) POCT HEMOGLOBIN A1C Routine 10/14/2024 11:05 AM CDT Type 2 diabetes mellitus with hyperglycemia, with long-term current use of insulin (HCC) from Last 3 Months or Most Recently Relevant to Health Maintenance Results * Screening Mammogram Bilateral W Kvng (10/16/2024 3:48 PM CDT) Anatomical Region Laterality Modality Breast Bilateral Mammography 10/16/2024 3:53 PM CDT Impressions 10/16/2024 3:53 PM CDT There is no mammographic evidence to suggest malignancy. The patient may continue screening mammography as per ACR guidelines. FINAL ASSESSMENT: BI-RADS Category 1: Negative. Electronically signed by: Charu Burden M.D. Narrative 10/16/2024 3:53 PM CDT EXAMINATION: BILATERAL SCREENING MAMMOGRAM WITH TOMOGRAPHY HISTORY: Screening. COMPARISON(S): 2020 TECHNIQUE: Full-field 2D images and digital tomosynthesis images were obtained. CAD was utilized. BREAST PARENCHYMAL COMPOSITION: The breasts are almost entirely fatty. FINDINGS: There are bilateral biopsy markers. There are no suspicious masses. No suspicious calcifications are seen. There is no unexplained architectural distortion. There is no skin thickening seen. There are no mammographically abnormal lymph nodes seen in the axillae or elsewhere. us Argenis Wolf CROP DUSTER HELPER IMG MAMMO PROCEDURES Final R esult * eGFR (10/14/2024 12:16 PM CDT) eGFR >90 >=60 mL/min/1. 73 m2 Comment: Interpretive Data Reference Interval Normal >/= [...] interpretive data was last reviewed 2021. Blood 10/14/2024 12:1 6 PM CDT 10/14/2024 7:45 PM CDT Keren Guevara MD LAB BLOOD ORDERABLES Final Resul t [facility] [id number] [address] [place] [address] * (ABNORMAL) Albumin Creatinine Ratio, Urine (10/14/2024 12:16 PM CDT) Albumin Ur 84.3 mg/L Comment: Interpretive Data No reference range established. Current interpretive data was last revised 2018. Creatinine Ur 228.6 mg/dL [facility] CM Comment: Interpretive Data No reference range established. Current interpretive data was last revised 2018. Albumin Creatinine Ratio, Ur 37(H) 1 - 29 mg/g [facility] CM Urine 10/14/2024 12:1 6 PM CDT 10/14/2024 7:09 PM CDT us Keren Guevara MD LAB URINE [place] [id number] [address] [facility] [place] [address] * (ABNORMAL) Lipid panel (10/14/2024 12:16 PM CDT) Cholesterol 221(H) 30 - 199 mg/dL Comment: Interpretive Data Ages < or = [...] Data was last revised on 2018. Triglycerides 429(H) <=149 mg/dL [facility] CM Comment: Interpretive Data [...] Data was last revised on 2018. HDL 27(L) >=40 mg/dL [facility] CM Comment: Interpretive Data [...] was last revised on 2018. LDL, calculated See Comment <=129 mg/dL [facility] CM Comment: Unable to calculate due to elevated Triglycerides. Interpretive Data Ages < or = 19 years Acceptable: <110 mg/dL Borderline high: 110-129 mg/dL High: >or= 130 mg/dL Ages > or = 20 years Optimal: <100 mg/dL Near optimal: 100-129 mg/dL Borderline high: 130-159 mg/dL High: >160 mg/dL Calculated using the Gilbert LDL-C estimating equation. This equation was implemented on 2024. Prior to this date LDL-C was estimated using the Friedewald equation. Literature References: 1. Expert Panel on Integrated Guidelines for Cardiovascular Health and Risk Reduction in Children and Adolescents. Pediatrics 2011;128:S213 2. NCEP Expert Panel. Circulation 2004;110:227 3. Gilbert Patel et al. LEONEL Cardiol. 2019November 13;5(5):540-548. doi: 10.1001/jamacardio.2020.0013 Current Interpretive Data was last revised on 2024. Non-HDL Cholesterol 194 mg/dL [facility] CM Comment: Interpretive Data Ages [...] 2018. Chol/HDL ratio 8 [facility] CM Blood 10/14/2024 12:1 6 PM CDT 10/14/2024 7:09 PM CDT us Keren Guevara MD LAB [place]LOOD [place] [id number] [address] [place] [address] * (ABNORMAL) POCT hemoglobin A1c (10/14/2024 11:05 AM CDT) Hemoglobin A1C, POC 6.1 4.0 - 5.6 % Comment:None Capillary blood 10/14/2024 1 1:05 AM CDT us Keren Guevara MD POINT OF CARE TEST ORDERABLES Fi nal Result from Last 3 Months or Most Recently Relevant to Health Maintenance Insurance [facility] [employer] COMPENSATION GENERIC Care Teams Record Keeper Relationship Specialty Start Date End Date Argenis Wolf NP [phone] [address] PCP - General Family Medicine 02/26/23
--- OUTSIDE RECORDS SUMMARY | 2025-04-20 14:28 | XMS_ITS | Data Portability ---
Author Organization [facility] Address [address] [place] [address] Care Team Providers Care Squirrel Man Name Role Phone LAVERN, ARGENIS Primary Care Provider [phone] Assessment Encounter Date Assessment Date Assessment LastModified by Organization Details LastModified Time 04/18/2022 04/18/2022 Ms. Silva presented in office today for f/u appointment. The patient states she went to [facility] on 04/12/22 with a dislocated left knee. [...] would need to be cleared by an software implementation specialist. The patient expressed her understanding. [email or web address] [...] or fatigue are reported. She has tried bwou-rdi-nzyawc r creams with minimal relief. No history of similar rashes elsewhere on the body. No recent travel, insect bites, or exposure to new environments. Not available 07/07/2024 07:56:23 Plan of Treatment Reminders Order Date Submit Date Provider Last Modified By Organization Details Last Modified Time Details Appointments None recorded. Lab HbA1c (hemoglob in A1c), blood 2023 024 [email or web address] [facility], [address] [facility], [address], [place], [address], 4 08:40:44 CMP, serum or plasma 2023 024 FRANCOISE [facility], [address] [facility], [facility] [address], [place], [address], 4 07:13:50 lipid panel, serum 2023 024 FRANCOISE [facility], [address] [facility], [address], [place], [address], 4 07:13:49 culture, urine 2022 023 FRANCOISE [facility], [address] [facility], [address], [place], [address], 3 06:41:22 urinalysi s, dipstick 2022 023 FRANCOISE In-Office Order, Internal Use Only DO Not Attach Compendium DO Not Attach Compendium, Do Not Delete/merge, [id number] 3 15:14:44 lipid panel, serum 2022 023 FRANCOISE [facility], [address] [facility], [facility] [address], [place], [address], 3 03:10:02 HbA1c (hemoglob in A1c), blood 2022 023 FRANCOISE In-Office Order, Internal Use Only DO Not Attach Compendium DO Not Attach Compendium, Do Not Delete/merge, [id number] 3 15:04:16 CMP, serum or plasma 2022 023 FRANCOISE [facility], [address] [facility], [facility] [address], [place], [address], 3 03:10:03 HbA1c (hemoglob in A1c), blood 2022 023 FRANCOISE In-Office Order, Internal Use Only DO Not Attach Compendium DO Not Attach Compendium, Do Not Delete/merge, [id number] 3 11:52:44 rapid flu (A+B) 2022 023 FRANCOISE In-Office Order, Internal Use Only DO Not Attach Compendium DO Not Attach Compendium, Do Not Delete/merge, [id number] 3 12:34:05 rapid SARS CoV 2 Ag, QL IA, respirato ry specimen 2022 023 FRANCOISE In-Office Order, Internal Use Only DO Not Attach Compendium DO Not Attach Compendium, Do Not Delete/merge, [id number] 3 12:34:23 HbA1c (hemoglob in A1c), blood 2021 022 FRANCOISE In-Office Order, Internal Use Only DO Not Attach Compendium DO Not Attach Compendium, Do Not Delete/merge, [id number] 2 12:09:08 Referral dermatolo gist referral 2023 024 FRANCOISE Arreola MD (Dermatology) , [address], [address], [place], [address], 5 13:46:21 gastroent erologist referral - colonosco py 2023 024 devan Bullock, [address] [facility] , [facility] [address], [place], [address], 5 15:05:05 otolaryng ologist referral 2023 024 devan Manuel DO, 4 [facility] , [address], [address], [place], [address], 4 11:41:[address] referral 2023 024 [facility] (Audiology), [address] [facility] [address], [place], [address], 4 12:46:33 endocrino logy referral 2022 023 [place], [address] [facility], [place], [address], 3 11:05:12 Procedures None recorded. Surgeries None recorded. Imaging MAMMO, screening , digital, bilateral 2023 024 [facility] (Radiology), [address] [facility] [place], [address], 5 16:57:35 XR, hand, 3 or more view 2022 023 [facility], [address] [facility] [place], [address], 3 07:30:57 Medication Orders triamcino lone acetonide 0.1 % topical cream 2023 024 [facility]/Pharmacy #[id number], [address] [place], [address], 4 17:30:41 valsartan 320 mg tablet 2023 024 [facility] [address] [place], [address], 4 17:22:26 valsartan 320 mg tablet 2023 024 [facility] #6833, [address] [place], [address], 4 16:31:29 atorvasta tin 40 mg tablet 2023 024 [id number] [place], [address], 4 11:30:17 nicotine 21 mg/24 hr daily transderm al patch 2022 023 [id number] [address] [place], [address], 4 15:58:28 hydroxyzi ne HCl 50 mg tablet 2022 023 [facility] [address] [place], [address], 4 15:58:00 atorvasta tin 40 mg tablet 2022 023 [facility] [address] [place], [address], 3 15:29:55 Rybelsus 3 mg tablet 2022 023 [facility] #6833, [address] [place], [address], 4 15:58:49 metformin ER 500 mg tablet,ex tended release 24 hr 2022 023 [facility] [address] [place], [address], 4 15:58:20 valsartan 320 mg tablet 2022 023 [facility] #6833, [address] [place], [address], 3 14:54:32 metformin ER 500 mg tablet,ex tended release 24 hr [email or web address] [facility] #6833, [address] [place], [address], 4 15:58:20 Januvia 100 mg tablet 2021 022 [facility] [address] [place], [address], 21:37:57 Patient TargetsNo targets recorded. Patient Instructions Encounter Date Encounter Id Patient Instructions Last Modified By Organization Details Last Modified Time 04/18/2022 [id number] A healthy lifestyle: care instructions Not available 04/21/2022 14:37:12 - Always present to ER or Urgent Care with any progression of/alarming symptoms, significant changes in symptoms or any concerning or urgent matters Not available 04/18/2022 14:15:50 07/25/2022 [id number] viral respirator y infection: care instructions Not available 07/25/2022 11:38:25 - Always present to ER or Urgent Care with any progression of/alarming symptoms, significant changes in symptoms or any concerning or urgent matters Not available 07/25/2022 11:35:57 02/02/2023 [id number] A healthy lifestyle: care instructions Not available 02/02/2023 14:56:41 - Always present to ER or Urgent Care with any progression of/alarming symptoms, significant changes in symptoms or any concerning or urgent matters Not available 02/02/2023 14:34:58 11/15/2023 [id number] A healthy lifestyle: care instructions Not available 11/15/2023 16:32:03 - Always present to ER or Urgent Care with any progression of/alarming symptoms, significant changes in symptoms or any concerning or urgent matters Not available 11/15/2023 16:16:12 06/30/2024 [id number] A healthy lifestyle: care instructions Not available 06/30/2024 17:30:39 - Always present to ER or Urgent Care with any progression of/alarming symptoms, significant changes in symptoms or any concerning or urgent matters Not available 07/07/2024 07:51:32 Reason for Referral Endocrinology Referral for U ncontrolled type 2 diabetes mellitus Referring Physician: Argenis [facility], Encounter Date: 02/02/2023 Hosiery Operator Referral fo r Bilateral tinnitus Referring Physician: Argenis [facility], Encounter Date: 11/15/2023 Threader Operator Referral for Mao ateral tinnitus Referring Physician: Argenis [facility], Encounter Date: 11/15/2023 Control Room Agent Referral for Screening for malignant neoplasm of colon colonoscopy Referring Physician: Argenis [facility], Encounter Date: 06/30/2024 Perishable Fruit Inspector Referral for L ocalized eruption of skin Referring Physician: Argenis [facility], Encounter Date: 06/30/2024 Results Created Date Observation Date Name Description Value Unit Range Abnormal Flag Note LastModifiedBy Organization Detail LastModifiedTime 04/18/2004/18/2022 HbA1c (hemo globi n A1c), blood HbA1c 9.6 Not Available In-Office Order Internal Use Only DO Not Attach Compendium DO Not Attach Compendium, Do Not Delete/merge, [id number] 04/18/2022 11:51:49 07/25/1907/25/2022 rapid SARS CoV 2 Ag, QL IA, respi rator y speci men rapid SARS CoV 2 Ag, QL IA, respiratory specimen negati ve Not Available In-Office Order Internal Use Only DO Not Attach Compendium DO Not Attach Compendium, Do Not Delete/merge, [id number] 07/25/2022 11:50:31 07/25/1907/25/2022 rapid flu (A+B) Flu A negati ve Not Available In-Office Order Internal Use Only DO Not Attach Compendium DO Not Attach Compendium, Do Not Delete/merge, [id number] 07/25/2022 11:50:27 07/25/19 23 07/25/2022 rapid flu (A+B) Flu B negati ve Not Available In-Office Order Internal Use Only DO Not Attach Compendium DO Not Attach Compendium, Do Not Delete/merge, [id number] 07/25/2022 11:50:27 07/25/1907/25/2022 HbA1c (hemo globi n A1c), blood HbA1c 10.1 Not Available In-Office Order Internal Use Only DO Not Attach Compendium DO Not Attach Compendium, Do Not Delete/merge, [id number] 07/25/2022 11:21:24 02/03/20 23 02/02/2023 LIPID PANEL cholesterol, total 298.7 mg/dL 140.0- 200.0 above high normal Not Available [facility] [address] [place] [address], [address], 02/03/2023 03:10:02 02/03/20 23 02/02/2023 LIPID PANEL triglyceride s 547 mg/dL <=150 above high normal Not Available [facility] [address] [place] [address], [address], 02/03/2023 03:10:02 02/03/20 23 02/02/2023 LIPID PANEL HDL cholesterol 29.3 mg/dL 40.0-1 00.0 below low normal Not Available [facility] [address] [place], [address], 02/03/2023 03:10:02 02/03/20 23 02/02/2023 LIPID PANEL VLDL cholesterol ivan 109.40 mg/dL 5.00-4 0.00 above high normal Not Available [facility] [address] [place], [address], 02/03/2023 03:10:02 07/21/02/02/2023 LIPID PANEL LDL chol calc ([facility]) 161.3 mg/dL 0.0-99 .0 above high normal Not Available [facility] [address] [place], [address], 02/03/2023 03:10:02 02/03/20 23 02/04/2023 URINE CULTU RE, ROUTI NE urine culture, routine Final report Not Available [facility] ([facility]) [address] [place], [address], 02/04/2023 06:41:22 02/03/20 23 02/04/2023 URINE CULTU RE, ROUTI NE result 1 Commen t Cultu re shows less than 10,00 0 colon y formi ng units of bacte janelle per carola liter of urine . This colon y count is not gener ally consi dered to be clini kenzie signi fican t. Not Available [facility] ([facility]) [address] [facility], [place], [address], 02/04/2023 06:41:22 02/03/20 23 02/02/2023 COMP. METAB OLIC PANEL (14) glucose 215 mg/dL 65-99 above high normal ANION GP 18.0 mmol/ L N OSMOL 277.0 mOsM/ L N REFER ENCE RANGE : 275.0 -301. 0 Not Available [facility] [address] [place], [address], 02/03/2023 03:10:03 02/03/20 23 02/02/2023 COMP. METAB OLIC PANEL (14) BUN 15 mg/dL 8-26 Not Available [facility] [address] [place], [address], 02/03/2023 03:10:03 02/03/20 23 02/02/2023 COMP. METAB OLIC PANEL (14) creatinine 0.71 mg/dL 0.50-1 .40 Not Available [facility] [address] [place], [address], 02/03/2023 03:10:03 02/03/20 23 02/02/2023 COMP. METAB OLIC PANEL (14) eGFR 107 mL/mi n/1.7 3 >=60 Not Available [facility] [address] [place] [address], [address], 02/03/2023 03:10:03 02/03/20 23 02/02/2023 COMP. METAB OLIC PANEL (14) BUN/creatini ne ratio 21.0 Not Available [facility] [address] [place], [address], 02/03/2023 03:10:03 02/03/20 23 02/02/2023 COMP. METAB OLIC PANEL (14) sodium 135.0 mmol/ L 136.0- 144.0 below low normal Not Available [facility] [address] [place] [address], [address], 02/03/2023 03:10:03 02/03/20 23 02/02/2023 COMP. METAB OLIC PANEL (14) potassium 4.3 mmol/ L 3.5-5. 3 Not Available [facility] [address] [place], [address], 02/03/2023 03:10:03 02/03/20 23 02/02/2023 COMP. METAB OLIC PANEL (14) chloride 99 mmol/ l 101-11 1 below low normal Not Available [facility] [address] [place], [address], 02/03/2023 03:10:03 02/03/20 23 02/02/2023 COMP. METAB OLIC PANEL (14) carbon dioxide, total 21.8 mmol/ L 21.0-3 2.0 Not Available [facility] [address] [place], [address], 02/03/2023 03:10:03 02/03/20 23 02/02/2023 COMP. METAB OLIC PANEL (14) calcium 9.7 mg/dL 8.2-10 .0 Not Available [facility] [address] [place], [address], 02/03/2023 03:10:03 02/03/20 23 02/02/2023 COMP. METAB OLIC PANEL (14) protein, total 7.4 g/dL 6.7-8. 2 Not Available [facility] [address] [place], [address], 02/03/2023 03:10:03 02/03/20 23 02/02/2023 COMP. METAB OLIC PANEL (14) albumin 4.4 g/dL 3.5-5. 5 Not Available [facility] [address] [place], [address], 02/03/2023 03:10:03 02/03/20 23 02/02/2023 COMP. METAB OLIC PANEL (14) globulin, total 3.0 g/dL 1.5-4. 5 Not Available [facility] [address] [place], [address], 02/03/2023 03:10:03 02/03/20 23 02/02/2023 COMP. METAB OLIC PANEL (14) A/G ratio 1.0 Not Available [facility] [address] [place], [address], 02/03/2023 03:10:03 02/03/20 23 02/02/2023 COMP. METAB OLIC PANEL (14) bilirubin, total 0.2 mg/dL 0.0-1. 2 Not Available [facility] [address] [place], [address], 02/03/2023 03:10:03 02/03/20 23 02/02/2023 COMP. METAB OLIC PANEL (14) alkaline phosphatase 111.4 IU/L 42.0-1 21.0 Not Available [facility] [address] [place], [address], 02/03/2023 03:10:03 02/03/20 23 02/02/2023 COMP. METAB OLIC PANEL (14) AST (SGOT) 34.6 U/L 10.0-4 2.0 Not Available [facility] [address] [place], [address], 02/03/2023 03:10:03 02/03/20 23 02/02/2023 COMP. METAB OLIC PANEL (14) ALT (SGPT) 93.3 U/L 10.0-6 0.0 above high normal Not Available [facility] [address] [place], [address], 02/03/2023 03:10:03 02/03/20 23 02/02/2023 urina lysis , dipst ick Leukocytes Negati ve Not Available In-Office Order Internal Use Only DO Not Attach Compendium DO Not Attach Compendium, Do Not Delete/merge, [id number] 02/02/2023 14:35:16 02/03/20 23 02/02/2023 urina lysis , dipst ick Nitrite negati ve Not Available In-Office Order Internal Use Only DO Not Attach Compendium DO Not Attach Compendium, Do Not Delete/merge, 02/02/2023 14:35:16 02/03/20 23 02/02/2023 urina lysis , dipst ick Urobilinogen 1 Not Available In-Of fice Order Internal Use Only DO Not Attach Compendium DO Not Attach Compendium, Do Not Delete/merge, [id number] 02/02/2023 14:35:16 02/03/20 23 02/02/2023 urina lysis , dipst ick Protein Negati ve Not Available In-Office Order Internal Use Only DO Not Attach Compendium DO Not Attach Compendium, Do Not Delete/merge, 02/02/2023 14:35:16 02/03/20 23 02/02/2023 urina lysis , dipst ick pH 6.0 Not Available In-Office Order Internal Use Only DO Not Attach Compendium DO Not Attach Compendium, Do Not Delete/merge, [facility] 02/02/2023 14:35:16 02/03/20 23 02/02/2023 urina lysis , dipst ick Blood Negati ve Not Available In-Office Order Internal Use Only DO Not Attach Compendium DO Not Attach Compendium, Do Not Delete/merge, [facility] 02/02/2023 14:35:16 02/03/20 23 02/02/2023 urina lysis , dipst ick Specific Molena 1.025 Not Available In-Off ice Order Internal Use Only DO Not Attach Compendium DO Not Attach Compendium, Do Not Delete/merge, [facility] 02/02/2023 14:35:16 02/03/20 23 02/02/2023 urina lysis , dipst ick Ketone Trace Not Available In-Office Order Internal Use Only DO Not Attach Compendium DO Not Attach Compendium, Do Not Delete/merge, [facility] 02/02/2023 14:35:16 02/03/20 23 02/02/2023 urina lysis , dipst ick Bilirubin Negati ve Not Available In-Office Order Internal Use Only DO Not Attach Compendium DO Not Attach Compendium, Do Not Delete/merge, [facility] 02/02/2023 14:35:16 02/03/20 23 02/02/2023 urina lysis , dipst ick Glucose 1000 Not Available In-Office Order Internal Use Only DO Not Attach Compendium DO Not Attach Compendium, Do Not Delete/merge, [facility] 02/02/2023 14:35:16 02/03/20 23 02/02/2023 urina lysis , dipst ick Appearance Slight ly Cloudy Not Available In-Office Order Internal Use Only DO Not Attach Compendium DO Not Attach Compendium, Do Not Delete/merge, [facility] 02/02/2023 14:35:16 02/03/20 23 02/02/2023 urina lysis , dipst ick Color Dark Yellow Not Available In-Office Order Internal Use Only DO Not Attach Compendium DO Not Attach Compendium, Do Not Delete/merge, [facility] 02/02/2023 14:35:16 02/03/20 23 02/02/2023 HbA1c (hemo globi n A1c), blood HbA1c 10.9 Not Available In-Office Order Internal Use Only DO Not Attach Compendium DO Not Attach Compendium, Do Not Delete/merge, [id number] 02/02/2023 14:30:51 11/15/19 24 11/16/2023 LIPID PANEL cholesterol, total 247 mg/dL 100-19 9 above high normal Not Available [facility] ([facility]) [address] [place], [address], 11/16/2023 07:13:49 11/15/19 24 11/16/2023 LIPID PANEL triglyceride s 398 mg/dL 0-149 above high normal Not Available [facility] ([facility]) [address] [place], [address], 11/16/2023 07:13:49 11/15/19 24 11/16/2023 LIPID PANEL HDL cholesterol 30 mg/dL >39 below low normal Not Available [facility] ([facility]) [address] [place], [address], 11/16/2023 07:13:49 11/15/19 24 11/16/2023 LIPID PANEL VLDL cholesterol ivan 74 mg/dL 5-40 above high normal Not Available [facility] ([facility]) [address] [place], [address], 11/16/2023 07:13:49 11/15/19 24 11/16/2023 LIPID PANEL LDL chol calc ([facility]) 143 mg/dL 0-99 above high normal Not Available [facility] ([facility]) [address] [place], [address], 11/16/2023 07:13:49 11/15/19 24 11/16/2023 COMP. METAB OLIC PANEL (14) glucose 108 mg/dL 70-99 above high normal Not Available [facility] ([facility]) [address] [place], [address], 11/16/2023 07:13:50 11/15/19 24 11/16/2023 COMP. METAB OLIC PANEL (14) BUN 20 mg/dL 6-24 Not Available [facility] ([facility]) [address] [place], [address], 11/16/2023 07:13:50 11/15/19 24 11/16/2023 COMP. METAB OLIC PANEL (14) creatinine 0.78 mg/dL 0.57-1 .00 Not Available [facility] ([facility]) [address] [facility] [place], [address], 11/16/2023 07:13:50 11/15/19 24 11/16/2023 COMP. METAB OLIC PANEL (14) eGFR 95 mL/mi n/1.7 3 >59 Not Available [facility] ([facility]) [address] [facility], [place], [address], 11/16/2023 07:13:50 11/15/19 24 11/16/2023 COMP. METAB OLIC PANEL (14) BUN/creatini ne ratio 26 9-23 above high normal Not Available [facility] ([facility]) [address] [place], [address], 11/16/2023 07:13:50 11/15/19 24 11/16/2023 COMP. METAB OLIC PANEL (14) sodium 141 mmol/ L 134-14 4 Not Available [facility] ([facility]) [address] [place], [address], 11/16/2023 07:13:50 11/15/19 24 11/16/2023 COMP. METAB OLIC PANEL (14) potassium 4.1 mmol/ L 3.5-5. 2 Not Available [facility] ([facility]) [address] [place], [address], 11/16/2023 07:13:50 11/15/19 24 11/16/2023 COMP. METAB OLIC PANEL (14) chloride 105 mmol/ L 96-106 Not Available [facility] ([facility]) [address], [place], [address], 11/16/2023 07:13:50 11/15/19 24 11/16/2023 COMP. METAB OLIC PANEL (14) carbon dioxide, total 21 mmol/ L 20- Not Available [facility] ([facility]) [address], [place], [address], 11/16/2023 07:13:50 11/15/19 24 11/16/2023 COMP. METAB OLIC PANEL (14) calcium 9.9 mg/dL 8.7-10 .2 Not Available [facility] ([facility]) [address] [place], [address], 11/16/2023 07:13:50 11/15/19 24 11/16/2023 COMP. METAB OLIC PANEL (14) protein, total 7.0 g/dL 6.0-8. 5 Not Available [facility] ([facility]) [address], [place], [address], 11/16/2023 07:13:50 11/15/19 24 11/16/2023 COMP. METAB OLIC PANEL (14) albumin 4.3 g/dL 3.9-4. 9 Not Available [facility] ([facility]) [address] [place], [address], 11/16/2023 07:13:50 11/15/19 24 11/16/2023 COMP. METAB OLIC PANEL (14) globulin, total 2.7 g/dL 1.5-4. 5 Not Available [facility] ([facility] [address] [facility] [place], [address], 11/16/2023 07:13:50 11/15/19 24 11/16/2023 COMP. METAB OLIC PANEL (14) A/G ratio 1.6 1.2-2. 2 Not Available [facility] ([facility]) [address] [facility], [place], [address], 11/16/2023 07:13:50 11/15/19 24 11/16/2023 COMP. METAB OLIC PANEL (14) bilirubin, total <0.2 mg/dL 0.0-1. 2 Not Available [facility] ([facility]) [address] [place], [address], 11/16/2023 07:13:50 11/15/19 24 11/16/2023 COMP. METAB OLIC PANEL (14) alkaline phosphatase 95 IU/L 44-121 Not Available [facility]) [address] [facility] [place], [address], 11/16/2023 07:13:50 11/15/19 24 11/16/2023 COMP. METAB OLIC PANEL (14) AST (SGOT) 17 IU/L 0-40 Not Available [facility] ([facility]) [address] [facility], [place], [address], 11/16/2023 07:13:50 11/15/19 24 11/16/2023 COMP. METAB OLIC PANEL (14) ALT (SGPT) 31 IU/L 0-32 Not Available [facility] ([facility]) [address] [facility], [place], [address], 11/16/2023 07:13:50 09/08/19 25 09/08/2024 CBC W Auto Diffe renti al panel - Blood leukocytes [#/volume] in blood by automated count 10.98 text: 4.00 - 12.00 10(3)/ mcL WBC 10.98 4.00 - 12.00 10(3) /mcL 09/08 10:34 AM [facility] Not Available Not Available 09/24/2024 10:37:47 09/08/19 25 09/08/2024 CBC W Auto Diffe renti al panel - Blood erythrocytes [#/volume] in blood by automated count 4.52 text: 3.80 - 5.30 10(6)/ mcL RBC 4.52 3.80 - 5.30 10(6) /mcL 09/08 10:34 AM [facility] Not Available Not Available 09/24/2024 10:37:47 09/08/19 25 09/08/2024 CBC W Auto Diffe renti al panel - Blood hemoglobin [mass/volume ] in blood 13.9 g/dL low: 12g/dL high: 15.8g/ dL HEMOG LOBIN (HGB) 13.9 12.0 - 15.8 g/dL 09/08 10:34 AM [facility] Not Available Not Available 09/24/2024 10:37:47 09/08/19 25 09/08/2024 CBC W Auto Diffe renti al panel - Blood hematocrit [volume fraction] of blood by automated count 39.8 % low: 36%hig h: 47% HEMAT OCRIT (HCT) 39.8 36.0 - 47.0 % 09/08 10:34 AM [facility] Not Available Not Available 09/24/2024 10:37:47 09/08/19 25 09/08/2024 CBC W Auto Diffe renti al panel - Blood MCV [entitic volume] by automated count 88.1 fL low: 82fLhi gh: 96fL MCV 88.1 82.0 - 96.0 fL 09/08 10:[address] [facility] H CENT[facility] R LAB Not Available Not Available 09/24/2024 10:37:47 09/08/19 25 09/08/2024 CBC W Auto Diffe renti al panel - Blood MCH [entitic mass] by automated count 30.8 pg low: 26pghi gh: 34pg MCH 30.8 26.0 - 34.0 pg 09/08 10:[address] [facility], TXT H CENT[facility] R LAB Not Available Not Available 09/24/2024 10:37:47 09/08/19 25 09/08/2024 CBC W Auto Diffe renti al panel - Blood MCHC [mass/volume ] by automated count 34.9 g/dL low: 31g/dL high: 36g/dL MCHC 34.9 31.0 - 36.0 g/dL 09/08 10:34 AM [facility] Not Available Not Available 09/24/2024 10:37:47 09/08/19 25 09/08/2024 CBC W Auto Diffe renti al panel - Blood platelets [#/volume] in blood 343 text: 140 - 440 10(3)/ mcL PLATE LET COUNT 343 140 - 440 10(3) /mcL 09/08 10:34 AM [facility] Not Available Not Available 09/24/2024 10:37:47 09/08/19 25 09/08/2024 CBC W Auto Diffe renti al panel - Blood erythrocyte distribution width [ratio] by automated count 12.2 % low: 11.8%h igh: 15.5% RDW 12.2 11.8 - 15.5 % 09/08 10:34 AM [facility] [facility] Not Available Not Available 09/24/2024 10:37:47 09/08/19 25 09/08/2024 CBC W Auto Diffe renti al panel - Blood platelet mean volume [entitic volume] in blood by automated count 8.8 fL low: 9.7fLh igh: 12.4fL low MPV 8.8 (L) 9.7 - 12.4 fL 09/08 10:34 AM [facility] Not Available Not Available 09/24/2024 10:37:47 09/08/19 25 09/08/2024 CBC W Auto Diffe renti al panel - Blood neutrophils/ 100 leukocytes in blood by automated count 56.6 % low: 47%hig h: 73% NEUTR OPHIL S 56.6 47.0 - 73.0 % 09/08 10:34 AM [facility] Not Available Not Available 09/24/2024 10:37:47 09/08/19 25 09/08/2024 CBC W Auto Diffe renti al panel - Blood lymphocytes/ 100 leukocytes in blood by automated count 34.5 % low: 18%hig h: 42% LYMPH OCYTE S 34.5 18.0 - 42.0 % 09/08 10:34 AM [facility] Not Available Not Available 09/24/2024 10:37:47 09/08/19 25 09/08/2024 CBC W Auto Diffe renti al panel - Blood monocytes/10 0 leukocytes in blood by automated count 5.4 % low: 4%high : 12% MONOC YTES 5.4 4.0 - 12.0 % 09/08 10:34 AM [facility] [place] [facility] Not Available Not Available 09/24/2024 10:37:47 09/08/19 25 09/08/2024 CBC W Auto Diffe renti al panel - Blood eosinophils/ 100 leukocytes in blood by automated count 2.7 % low: 0%high : 5% EOSIN OPHIL S 2.7 0.0 - 5.0 % 09/08 10:34 AM [facility] [place] [facility] Not Available Not Available 09/24/2024 10:37:47 09/08/19 25 09/08/2024 CBC W Auto Diffe renti al panel - Blood basophils/10 0 leukocytes in blood by automated count 0.8 % low: 0%high : 1% BASOP HILS 0.8 0.0 - 1.0 % 09/08 10:34 AM [facility] [place] [facility] Not Available Not Available 09/24/2024 10:37:47 09/08/19 25 09/08/2024 CBC W Auto Diffe renti al panel - Blood neutrophils [#/volume] in blood by automated count 6.21 text: 1.60 - 7.70 10(3)/ mcL ABSOL KAKTOVIK NEUTR OPHIL S 6.21 1.60 - 7.70 10(3) /mcL 09/08 10:34 AM [facility] [place] [facility] Not Available Not Available 09/24/2024 10:37:47 09/08/19 25 09/08/2024 CBC W Auto Diffe renti al panel - Blood lymphocytes [#/volume] in blood by automated count 3.79 text: 1.30 - 3.20 10(3)/ mcL high ABSOL KAKT[place] LYMPH OCYTE S 3.79 (H) 1.30 - 3.20 10(3) /mcL 09/08 10:34 AM [facility] [place] [facility] Not Available Not Available 09/24/2024 10:37:47 09/08/19 25 09/08/2024 CBC W Auto Diffe renti al panel - Blood monocytes [#/volume] in blood by automated count 0.59 text: 0.20 - 1.00 10(3)/ mcL ABSOL KAKTOVIK MONOC YTES 0.59 0.20 - 1.00 10(3) /mcL 09/08 10:34 AM [facility] [place] [facility] Not Available Not Available 09/24/2024 10:37:47 09/08/19 25 09/08/2024 CBC W Auto Diffe renti al panel - Blood eosinophils [#/volume] in blood by automated count 0.3 text: 0.00 - 0.40 10(3)/ mcL ABSOL KAKT[place]IK EOSIN OPHIL 0.30 0.00 - 0.40 10(3) /mcL 09/08 10:34 AM [facility] [place] [facility] Not Available Not Available 09/24/2024 10:37:47 09/08/19 25 09/08/2024 CBC W Auto Diffe renti al panel - Blood basophils [#/volume] in blood by automated count 0.09 text: 0.00 - 0.10 10(3)/ mcL ABSOL KAKTOVIK BASOP HILS 0.09 0.00 - 0.10 10(3) /mcL 09/08 10:34 AM [facility] [place] [facility] Not Available Not Available 09/24/2024 10:37:47 09/08/19 25 09/08/2024 CBC W Auto Diffe renti al panel - Blood nucleated erythrocytes /100 leukocytes [ratio] in blood 0 NRBC PER 100 WBC 0 09/08 10:34 AM [facility] LAB Not Available Not Available 09/24/2024 [...] 8 - 78 U/L 09/08 11:13 AM [facility] [place] [facility] Not Available Not Available 09/24/2024 [...] - 145 mmol/ L 09/08 11:13 AM [facility] [place] [facility] Not Available Not Available 09/24/2024 10:37:47 09/08/19 25 09/08/2024 Compr ehens matt metab olic 1999 panel - Serum or Plasm a potassium [moles/volum e] in serum or plasma 3.9 mmol/ L low: 3.5mmo l/Lhig h: 5.1mmo l/L POTAS SIUM 3.9 3.5 - 5.1 mmol/ L 09/08 11:13 AM [facility] [place] [facility] Not Available Not Available 09/24/2024 10:37:47 09/08/19 25 09/08/2024 Compr ehens matt metab olic 1999 panel - Serum or Plasm a chloride [moles/volum e] in serum or plasma 108 mmol/ L low: 98mmol /Lhigh : 107mmo l/L high CHLOR ARABELLA 108 (H) 98 - 107 mmol/ L 09/08 11:13 AM [facility] Not Available Not Available 09/24/2024 10:37:47 09/08/19 25 09/08/2024 Compr ehens matt metab olic 2000 panel - Serum or Plasm a carbon dioxide, total [moles/volum e] in serum or plasma 22 mmol/ L low: 22mmol /Lhigh : 30mmol /L CO2, VENOU S 22 22 - 30 mmol/ L 09/08 11:13 AM [facility] Not Available Not Available 09/24/2024 10:37:47 09/08/19 25 09/08/2024 Compr ehens matt metab olic 2000 panel - Serum or Plasm a anion gap in serum or plasma 13.9 mmol/ L high: 18mmol /L ANION GAP 13.9 <18.0 mmol/ L 09/08 11:13 AM [facility] Not Available Not Available 09/24/2024 10:37:47 09/08/19 25 09/08/2024 Compr ehens matt metab olic 2000 panel - Serum or Plasm a glucose [mass/volume ] in serum or plasma 165 mg/dL low: 70mg/d Lhigh: 99mg/d L high GLUCO SE 165 (H) 70 - 99 mg/dL 09/08 11:13 AM [facility] Not Available Not Available 09/24/2024 10:37:47 09/08/19 25 09/08/2024 Compr ehens matt metab olic 2000 panel - Serum or Plasm a urea nitrogen [mass/volume ] in serum or plasma 16 mg/dL low: 5mg/dL high: 18mg/d L BUN 16 5 - 18 mg/dL 09/08 11:13 AM [facility] Not Available Not Available 09/24/2024 10:37:47 09/08/19 25 09/08/2024 Compr EGENens matt metab olic 1999 panel - Serum or Plasm a creatinine [mass/volume ] in serum or plasma 0.82 mg/dL low: 0.6mg/ dLhigh : 1mg/dL CREAT ININE , BLOOD 0.82 0.60 - 1.00 mg/dL 09/08 11:13 AM [facility] [place] [facility] [employer] [facility] LAB Not Available Not Available 09/24/2024 10:37:47 09/08/19 25 09/08/2024 Compr EGENens matt metab olic 1999 panel - Serum or Plasm a urea nitrogen/cre atinine [mass ratio] in serum or plasma 20 text: 12 - 20 ratio BUN/C REATI NINE RATIO 20 12 - 20 ratio 09/08 11:13 AM [facility] [place] [facility] [employer] R LAB Not Available Not Available 09/24/2024 10:37:47 09/08/19 25 09/08/2024 Compr EGENens matt metab olic 2000 panel - Serum or Plasm a protein [mass/volume ] in serum or plasma 7.2 g/dL low: 6g/dLh igh: 8g/dL TOTAL PROTE IN 7.2 6.0 - 8.0 g/dL 09/08 11:13 AM [facility] [place] [facility] [employer] [facility] Not Available Not Available 09/24/2024 10:37:47 09/08/19 25 09/08/2024 Compr Biglion matt Helveta olic 1999 panel - Serum or Plasm a albumin [mass/volume ] in serum or plasma 3.7 g/dL low: 3.5g/d Lhigh: 5g/dL ALBUM IN 3.7 3.5 - 5.0 g/dL 09/08 11:13 AM [facility] [place] [facility] [employer] [facility] Not Available Not Available 09/24/2024 10:37:47 09/08/19 25 09/08/2024 Compr EGENens matt metab olic 2000 panel - Serum or Plasm a albumin/glob ulin [mass ratio] in serum or plasma 1.1 low: 1high: 2.2 A/G RATIO 1.1 1.0 - 2.2 09/08 11:13 AM [facility] LAB Not Available Not Available 09/24/2024 10:37:47 09/08/19 25 09/08/2024 Compr ehens matt metab olic 1999 panel - Serum or Plasm a calcium [mass/volume ] in serum or plasma 9 mg/dL low: 8.7mg/ dLhigh : 10.5mg /dL CALCI UM 9.0 8.7 - 10.5 mg/dL 09/08 11:13 AM [facility] Not Available Not Available 09/24/2024 10:37:47 09/08/19 25 09/08/2024 Compr ehens matt metab olic 2000 panel - Serum or Plasm a bilirubin.to karma [mass/volume ] in serum or plasma 0.3 mg/dL low: 0.2mg/ dLhigh : 1.2mg/ dL T BILI 0.3 0.2 - 1.2 mg/dL 09/08 11:[address] [facility] H Liv[facility] R LAB Not Available Not Available 09/24/2024 10:37:47 09/08/19 25 09/08/2024 Compr ehens matt metab olic 2000 panel - Serum or Plasm a aspartate aminotransfe rase [enzymatic activity/vol ume] in serum or plasma 25 U/L high: 43U/L SGOT (AST) 25 <43 U/L 09/08 11:[address] [facility] [employer] LLCE R LAB Not Available Not Available 09/24/2024 10:37:47 09/08/19 25 09/08/2024 Compr ehens matt metab olic 2000 panel - Serum or Plasm a alanine aminotransfe rase [enzymatic activity/vol ume] in serum or plasma 35 U/L high: 56U/L SGPT (ALT) 35 <56 U/L 09/08 11:[address] [facility] TXT H CENTE R LAB Not Available Not Available 09/24/2024 10:37:47 09/08/19 25 09/08/2024 Compr ehens matt metab olic 2000 panel - Serum or Plasm a alkaline phosphatase [enzymatic activity/vol ume] in serum or plasma 79 U/L low: 40U/Lh igh: 150U/L ALKAL INE PHOSP HATAS E 79 40 - 150 U/L 09/08 11:13 AM [facility] [place] [facility] [employer] Paid To Party LLCE R LAB Not Available Not Available 09/24/2024 10:37:47 09/08/19 25 09/08/2024 Compr ehens matt metab olic 1999 panel - Serum or Plasm a glomerular filtration rate/1.73 sq M.predicted among non-blacks [volume rate/area] in serum, plasma or blood by creatinine-b ased formula (MDRD) low: 60 GFR, ESTIM ATED >60 >=60 09/08 11:13 AM [facility] [place] [facility] [employer] R LAB Not Available Not Available 09/24/2024 10:37:47 09/08/1909/08/2024 Compr ehens matt metab olic 2000 panel - Serum or Plasm a glomerular filtration rate/1.73 sq M.predicted among blacks [volume rate/area] in serum, plasma or blood by creatinine-b ased formula (MDRD) low: 60 GFR, EST. AFRIC AN >60 >=60 09/08 11:13 AM [facility] [place] [facility] [employer] [facility] Not Available Not Available 09/24/2024 10:37:47 09/08/1909/08/2024 Compr ehens matt metab olic 2000 panel - Serum or Plasm a glomerular filtration rate/1.73 sq M.predicted among non-blacks [volume rate/area] in serum, plasma or blood by creatinine-b ased formula (MDRD) low: 60 GFR, EST. NONAF RICAN >60 >=60 09/08 11:13 AM [facility] [place] [facility] [employer] [facility] Not Available Not Available 09/24/2024 10:37:47 09/08/19 25 09/08/2024 Compr ehens matt metab olic 2000 panel - Serum or Plasm a interpretati on and review of laboratory results Abnorm al Not Available Not Available 10:37:47 02/07/20 23 02/05/2023 XR, hand, 3 or more view No observ ation record ed. [email or web address] [facility] [address], [place], [address], 03/22/2023 08:59:53 04/04/20 23 04/03/2023 XR, hand, 3 or more view No observ ation record ed. [facility] [address], [place], [address], 04/04/2023 13:36:43 10/17/19 25 10/16/2024 MAMMO , scree micki, digit al, bilat eral No observ ation record ed. [address] , [place], [address], 10/27/2024 10:02:32 Result Notes None recorded. Problems Name Problem SNOMED Code Status Onset Date Resolution Date Notes Provider Name and Address Organization Details Recorded Time Right upper quadrant pain 471678732 Active 2017 VIKI QUIROS NP Attn: Daphne garnica,[address] [facility], [place], [address], [place] - [facility] 8 18:01:25 Elevated blood-pre ssure reading without diagnosis of hypertens ion 319039615 Completed 201711/17/2019 ARGENIS PUCKETT NP Attn: Daphne garnica,[address] [facility], [place], [address], [place] [facility] 0 13:14:51 Gastroeso phageal reflux disease without esophagit is 037191674 Active 2017 ARGENIS PUCKETT NP Attn: Daphne garnica,[address] [facility], [place], [address], [place] [facility] 2 14:07:55 Morbid obesity 235545273 Active 2017 VIKI QUIROS NP Attn: Daphne g,[address] [facility], [place], [address], [place] [facility] 8 18:01:29 Tobacco user 634967928 Active 2017 ARGENIS PUCKETT NP Attn: Daphne g,[address] [place], [address], [place] [facility] 2 14:07:55 Dysmenorr hea 566702701 Active 2018 Brian good, [place] - [facility] 9 16:34:31 History of endometri al ablation 906898681519 107 Active 2018 Brian good, [place] [facility] 9 16:34:33 Endometri osis of uterus 57429568 Active 2018 Brian good[place] [facility] 9 16:34:35 History of female steriliza tion 983422311 Active 2018 Brian good, [place] [facility] 9 16:34:39 Essential hypertens ion 72046591 Active 2019 ARGENIS PUCKETT NP Attn: Daphne g,[address] [place], [address], [place] [facility] 2 14:07:55 Vitamin D deficienc y 46235663 Active 2019 ARGENIS PUCKETT NP Attn: Daphne g,[address] [place], [address], [place] [facility] 0 13:18:30 Hyperlipi demia 05098274 Active 2019 ARGENIS PUCKETT NP Attn: Daphne g,[address] [place], [address], [place] [facility] 2 14:07:55 Newly diagnosed diabetes 470502173 Completed 201908/02/2020 ARGENIS PUCKETT NP Attn: Daphne g,[address] [place], [address], [place] [facility] 1 10:41:12 Newly diagnosed diabetes 224395411 Completed 202002/08/2021 ARGENIS PUCKETT NP Attn: Fuentesrufino garnica,[address] [facility], [place], [address], [place] [facility] 1 10:41:12 Uncontrol led type 2 diabetes mellitus 472763553 Active 2020 ARGENIS PUCKETT NP Attn: Daphne garnica,[address] [facility], [place], [address], [place] [facility] 2 14:07:55 Dislocati on of patellofe moral joint 339208724 Active 2021 ARGENIS PUCKETT NP Attn: Fuentesrufino garnica,[address] [facility], [place], [address], [place] [facility] 2 14:31:54 Insomnia 469712424 Active 2022 ARGENIS PUCKETT NP Attn: Fuentesrufino garnica,[address] [facility], [place], [address], [place] [facility] 3 15:34:29 Pain of bilateral hands 614350409046 77268 Active 2022 ARGENIS PUCKETT NP Attn: Fuentesrufino garnica,[address] [facility], [place], [address], [place] [facility] 3 15:34:31 Obesity 511350363 Active 2022 ARGENIS PUCKETT NP Attn: Fuentesrufino garnica,[address] [facility], [place], [address], [place] [facility] 3 15:34:32 Osteoarth ritis 635122151 Active 2022 ARGENIS PUCKETT NP Attn: Daphne danika,[address] [facility], [place], [address], [place] [facility] 3 09:32:07 Localized eruption of skin 527623037 Active 2023 ARGENIS PUCKETT NP Attn: Daphne danika,[address] [facility], [place], [address], [place] [facility] 4 17:40:35 Problem Notes Documentation Provider Name and Address Organization Details Recorded Time Endocrinology Consult Note : This document (1 of 1) was received from [email or web address] on 05/25/2023 through Direct Message along with the following message body content: Patient Name: MIRIAM SILVA. Patient : 1980. Patient . Alton Gavin null, [place] - [facility] 05/28/2023 10:10:05 Procedures Surgical History Date Name Laterality Status Provider Name and Address Organization Details Recorded Time 04/21/20 21 ULTRASOUND GUIDED CORE BIOPSY (SURG) completed KOBY WATKINS Attn: Accounting,[address] [place], [address], [facility] 04/24/2021 16:26:22 09/06/19 19 TOTAL LAPAROSCOPIC HYSTERECTOMY, ROBOTIC ASSISTED (SURG) completed [facility] 09/19/2018 10:50:15 12/22/19 18 HYSTEROSCOPY, WITH ENDOMETRIAL ABLATION (SURG) completed Brian Michel [facility] 01/03/2018 14:33:35 10/25/19 18 Date of [facility] 08:21:15 11/14/19 05 Tubal Ligation [facility] 08:36:08 Imaging Results None recorded. Procedure Notes None recorded. Medical Equipment None Reported. Allergies Allergen ID Allergen Name Allergen Category Reaction Reaction Severity Criticality Documentation Date Start Date Code Code System Note Provider Name and Address Organization Details Recorded Time 368886 Substance with sulfonami de structure and antibacte rial mechanism of action (substanc e) medicatio n edema severe Not available 10/04/2017 54872 8003 SNOMED ESME Gamez, [place] - [place] 8 17:13:23 267647 Floxin medicatio n hives severe Not available 10/04/201729004 8 RxNorm Chaya Evangelista [place] null, [place] - [facility] 8 17:13:45 830082 Keflex medicatio n anaphylax is severe Not available 10/04/2017 7 RxNorm Chaya Evangelista [place] null, [place] 8 17:13:58 418205 codeine medicatio n Not available Not available Not available 10/24/2017 2670 RxNorm Dinora Gonsales null, [place] 8 08:26:44 948676 Dilaudid medicatio n Not available Not available Not available 07/25/2022 74291 3 RxNorm Rubi Phan LPN null, [place] - [place] 3 11:17:39 Medications Name Sig Start Date Stop Date [...] Not Available atorvasta tin 40 mg tablet TAKE 1 TABLET BY MOUTH EVERY DAY IN THE EVENING active Not Available Not Available No t [...] completed Not Available Not Available Not Available fluconazo le 150 mg tablet Take 1 tablet every day by oral route. 02/08 completed Not Available Not Available Not [...] lone acetonide 0.1 % topical cream APPLY TO AFFECTED AREA 3 TIMES A DAY NEEDED FOR RASH active Not Available Not Available No t [...] Available Not Available valsartan 320 mg tablet TAKE 1 TABLET BY MOUTH EVERY DAY , NEEEDS TO SCHEDULE AND KEEP APPOINTM ENT WITH PCP FOR ADDITION AL REFILLS active Not Available Not Available No t Available nicotine 21 mg/24 hr daily transderm al [...] completed Not Available Not Available Not Available naproxen 500 mg tablet TAKE 1 TABLET BY MOUTH TWICE A DAY NEEDED active Not Available Not Available No t Available oxycodone 5 mg tablet 04/18 completed Not Available Not Available Not Available valsartan 160 mg tablet TAKE 1 TABLET BY MOUTH EVERY DAY, NEEDS TO SCHEDULE AND KEEP APPOINTM ENT WITH PCP BEFORE NEXT REFILL 11/14 completed Not Available Not Available Not Available metaxalon e 800 mg tablet TAKE 1 TABLET BY MOUTH 3 TIMES A DAY NEEDED active Not Available Not Available No t [...] Not Available Not Available No t Available Januvia 100 mg tablet Take 1 tablet every day by oral route for 30 days. 04/21 completed Not Available Not Available Not Available cholecalc iferol (vitamin D3) 1,250 mcg (50,000 unit) capsule Take 1 capsule every week by oral route. 11/12 completed Not Available Not Available Not Available ferrous sulfate 324 mg (65 mg iron) tablet,de layed release 11/12 completed Not Available Not Available Not Available Lantus Solostar U-100 Insulin 100 unit/mL (3 mL) subcutane ous pen INJECT 20 UNITS UNDER THE SKIN NIGHTLY [...] completed Not Available Not Available Not Available Rybelsus 3 mg tablet Take 1 tablet every day by oral route for 30 days. 11/14 completed Not Available Not Available Not Available Ozempic 0.25 mg or 0.5 mg (2 mg/3 mL) subcutane ous pen injector INJECT 0.5 MG UNDER THE SKIN ONCE A WEEK active Not Available Not Available No t Available Vitals Date Recorded Body height Body mass index (BMI) Body weight Oxygen saturation Oxygen saturation in Arterial blood by Pulse oximetry Heart rate Respiratory rate Body temperature Systolic And Diastolic Provider Name and Address Organization Details Last Updated DateTime 3 162.56 cm 40.4 kg/m2 335701. 31 g 95 % 95 % 87 /min 16 /min 97 [degF] 126/78 mm[Hg] Rubi Phan LPN [place] - [facility] 3 11:13:28 Date Recorded Body height Respiratory rate Body mass index (BMI) Body weight Body temperature Heart rate Oxygen saturation Oxygen saturation in Arterial blood by Pulse oximetry Systolic And Diastolic Provider Name and Address Organization Details Last Updated DateTime 4 162.56 cm 16 /min 38.1 kg/m2 752009. 91 g 96.9 [degF] 86 /min 96 % 96 % 134/91 mm[Hg] Charito Ambrocio [facility] 4 16:05:18 Date Recorded Body height Respiratory rate Body mass index (BMI) Body weight Systolic And Diastolic Provider Name and Address Organization Details Last Updated DateTime 02/02/2023 162.56 cm 16 /min 39.1 kg/m2 241256. 41 g 138/89 mm[Hg] Charito Ambrocio [facility] 3 14:25:45 Date Recorded Body height Body mass index (BMI) Body weight Respiratory rate Body temperature Heart rate Oxygen saturation Oxygen saturation in Arterial blood by Pulse oximetry Systolic And Diastolic Provider Name and Address Organization Details Last Updated DateTime 2 162.56 cm 40.9 kg/m2 243204. 08 g 16 /min 96.8 [degF] 106 /min 96 % 96 % 120/80 mm[Hg] Charitoseferino Ambrocio [facility] 2 11:40:15 Date Recorded Body height Body mass index (BMI) Body weight Body temperature Respiratory rate Heart rate Oxygen saturation Oxygen saturation in Arterial blood by Pulse oximetry Systolic And Diastolic Provider Name and Address Organization Details Last Updated DateTime 4 162.56 cm 36.3 kg/m2 32515.4 3 g 97.1 [degF] 16 /min 73 /min 96 % 96 % 146/92 mm[Hg] Janette Torres MA [facility] 4 17:06:52 Social History Question Answer Notes LastModified by Organizat ion Details LastModified Time Tobacco Smoking Status Current Every Day Smoker Chaya Evangelista MA [facility], [facility] 10/04/2017 17:17:50 Do You Have An Advance Directive? No Information not available 02/08/2021 Are You Blind Or Do You Have Difficulty Seeing? No Information not available 02/08/2021 Is Blood Transfusion Acceptable In An Emergency? Yes [email or web address] Information not available 10/24/2017 What Is Your [...] No Information not available 02/08/2021 Are You Deaf Or Do You Have Serious Difficulty Hearing? No Has Ringing In Both Ears Information not available 02/08/2021 What Type Of Diet Are You Following? REGULAR Restricted Information not available 06/30/2024 Which Illicit Or Recreational Drugs Have You Used? Denies Information not available 10/24/2017 Are There Any Guns Present In Your [...] 10/24/2017 What Is Your Current Pack Years? 30ormorepafelicia rodriguez Information not available 03/08/2021 Performs Monthly Self-breast [...] To Smoke? Yes Information not available 02/08/2021 How Much Tobacco Do You Smoke? 1 PPD 1-1.5 Information not available 06/28/2020 General Stress Level Medium Med-high Information not available 11/11/2019 Do You Use Sunscreen Routinely? Yes Information not available 10/24/2017 Has Tobacco Cessation Counseling Been Provided? Yes Information not available 03/08/2021 On What Date Was Tobacco Cessation Counseling Provided? 06/30/2024 Information not available 06/30/2024 How Many Years Have You Smoked Tobacco? 31 Information not available 10/24/2017 Sex: Female Functional Status Question Answer Note LastModified by Organizat ion Details LastModified Time Do you use any illicit or recreational drugs? No Information not available 02/08/2021 Do you or have you ever used any other forms of tobacco or nicotine? No Information not available 03/08/2021 What is your level of alcohol consumption? None Information not available 10/24/2017 Do you or have you ever used smokeless tobacco? Never used smokeless tobacco Information not available 02/26/2020 Are you currently employed? Yes Information not available 10/24/2017 Are you able to care for yourself independently? Yes Information not available 02/08/2021 What is your occupation? [employer] Information not available 12/20/2017 Do you or have you ever used e-cigarettes or vape? Never used electronic cigarettes Information not available 02/26/2020 What is your exercise level? Moderate Information not available 10/24/2017 Mental Status Question Answer Note LastModified by Organization D etails LastModified Time Do you feel stressed (tense, restless, nervous, or anxious, or unable to sleep at night)? [id number] Information not available 02/08/2021 Family History Relationship Description Onset Age of this Age Resolved Age Notes LastModified by Organization Details LastModified Time Father Harmful pattern of use of alcohol [email or web address] Not available 09/14 17:14:49 Father Depressive [...] 17:16:49 Mother Malignant neoplasm of uterus 33 [email or web address] Not available 10/14 08:46:22 Brother Depressive disorder [...] Grandmother Malignant neoplasm of uterus 35 78 [email or web address] Not available 10/14 08:48:07 Maternal Grandmother Hypercholest erolemia [email or web address] Not available 2017 08:33:42 Maternal Grandmother Osteoporosis [email or web address] Not available 10/24/2017 08:33:55 Paternal Grandfather Hypercholest erolemia [email or web address] Not available 2017 08:33:26 Medical History Condition Response Coronary Artery Disease N Other N High Blood Pressure N Atrial Fibrillation N Breast Cancer N Lung Disease N Depression Y COPD N Blood Clots N Breast Problem Y Anesthesia Complications N Headaches/Migraines Y Anxiety Disorder N Muscle, Joint, or Bone Problems N Infertility N Polyps N Acid Reflux (GERD) Y Cancer N Stroke N Endometriosis N High Cholesterol Y Liver Disease N Headaches Y Thyroid Problems N Kidney or Bladder Problems N GI Problems Y Acne Y Eating Disorder N Skin Problems N Anemia N Heart Attack (IA) N Diabetes N Ovarian Cancer N Blood Transfusions N Seizures/Epilepsy N Abuse/Domestic Violence N Asthma N Allergies N Hepatitis N Heart Disease N Pre-Eclampsia N Heart Failure N Osteoporosis N Gynecological History Statement/Question Response Abnormal Pap [...] or 50 mcg/0.25mL dose 1 completed ARGENIS PUCKETT, MATERIAL COMBINER Attn: Accounting,[address] [facility], [place], [place], [address] [place] [address], [place] [facility] 07/25/2022 11:20:26 COVID-19, mRNA, LNP-S, PF, 100 mcg/0.5mL dose or 50 mcg/0.25mL dose 1 completed ARGENIS PUCKETT, MATERIAL COMBINER Attn: Accounting,[address] [facility], [place], [place], [address] [place] [address], [place] [facility] 07/25/2022 11:20:26 Influenza, split virus, trivalent, PF 4 completed ARGENIS PUCKETT, MATERIAL COMBINER Attn: Accounting,204 1 [place], [place], [address] [place] [address], [place] [facility] 07/25/2022 11:20:26 Influenza, MDCK, quadrivalent, PF 2 completed ARGENIS PUCKETT, MATERIAL COMBINER Attn: Accounting,[address] [facility], [place], [place], [address] [place] [address], [place] [facility] 07/25/2022 11:20:26 COVID-19, mRNA, LNP-S, PF, 50 mcg/0.5 mL 4 completed ARGENIS PUCKETT, MATERIAL COMBINER Attn: Accounting,204 [address] [place], [place], [address] [place] [address], [place] [facility] 06/30/2024 17:18:26 Influenza, split virus, trivalent, PF 4 completed ARGENIS PUCKETT, MATERIAL COMBINER Attn: Accounting,[address] [facility], [place], [place], [address] [place] [address], [place] [facility] 06/30/2024 17:18:26 Influenza, split virus, quadrivalent, preservative 9 completed Not Available [employer] 08/02/2019 02:40:53 Tdap 0 completed Vanessa Neri [place], [place] [facility] 03/15/2020 11:28:42 pneumococcal polysaccharide PPV23 0 completed Vanessa Neri MA null, [place] - [facility] 03/29/2020 16:57:02 tetanus toxoid, unspecified formulation 6 completed Chaya Evangelista MA [facility], [place] - [facility] 10/04/2017 17:18:32 Past Encounters Encounter ID Performer Location Encounter Start Date Encounter Closed Date Diagnosis/Indication Diagnosis SNOMED-CT Code Diagnosis ICD10 Code Diagnosis IMO Codes Diagnosis Note [id number] Atif Gan MD [facility] [address] [place] [address] 10/04/2017 16:58:06 10/05/2017 16:09:33 Right upper quadrant pain 694269996 R10.11 Adult heal th examination 073343815 Z00.00 Tobacco user 536098680 Z 72.0 Elevated blood-pressure reading without diagnosis of hypertension 688307933 R03.0 Gastroesop hageal reflux disease without esophagitis 711336047 K21.9 Morbid obesity 545677505 E66.01 [id number] Atif Gan MD [facility] [address] [place] [address] 10/05/2017 10:43:43 10/05/2017 16:26:15 Adult health examination 554055534 Z00.00 Right uppe r quadrant pain 890779923 R10.11 [id number] Atif Gan MD [facility] [address] [place] [address] 10/11/2017 18:25:00 10/12/2017 10:49:51 Vitamin D deficiency 63541833 E56.8 Prediabetes 318960956 R7 3.03 Mixed hyperlipidemia 267 102506 E78.2 [id number] Kirti Roger MD [facility] (MECHANICAL SERVICE REPRESENTATIVE) [address] [place] [address] 10/24/2017 08:14:54 10/26/2017 15:03:30 Gynecologic examination 95143518 Z01.411 Last pap 2006. Pap done. Venereal d isease screening 457909523 Z11.3 HIV and Hep C just tested by PCP. RTO one week for results. Adnexal tenderness 99778 3002 R10.2 Pt. with c/o pelvic pain with periods x 10 years. Some periods light and some look like a murder scene but they come at the same time each month. Mother and MGM diagnosed with endometria l CA in their 30s. Exam limited by body habitus. US ordered. Smoker 67243003 F17.200 Pt. using smoking as a stress reliever for multiple family issues. She does not feel she can even attempt to cut down at this time. Body mass index 40+ - severely obese 016333270 Z68.42 Nutrition and exercise discussed. Pt. states she does exercise more than 30 min daily. [id number] MD Kassie King (MECHANICAL SERVICE REPRESENTATIVE) [address] [place] [address] 11/19/2017 08:12:07 11/21/2017 15:53:32 Polyp of corpus uteri 77511580 N84.0 US showed an ecogenic focus in the endometriu m which appears heterogene ous. Recommenda tion made for hysterosco py with D&C. Procedure explained to pt. Pt. agreeable. Will schedule. [id number] MD Kassie King (MECHANICAL SERVICE REPRESENTATIVE) [address] [place] [address] 12/06/2017 08:46:16 12/06/2017 10:27:24 Polyp of corpus uteri 68198567 N84.0 Benefits, risks, and alternativ es to hysterosco py with dilation and curettage d/w pt. Pt. expressed understand ing. All pt. questions answered. Operation scheduled. [id number] MD Lyndsay Marques (MECHANICAL SERVICE REPRESENTATIVE) [address] [place] [address] 12/20/2017 09:50:43 12/20/2017 12:13:34 Polyp of corpus uteri 45414127 N84.0 Menorrhagia 829495794 N9 2.0 Dysmenorrhea 279254700 N 94.6 Taking Ibuprofen. Held for surgery. [id number] MD Lyndsay Marques (MECHANICAL SERVICE REPRESENTATIVE) [address] [place] [address] 01/03/2018 14:01:10 01/03/2018 15:09:15 Postoperative visit 625663354 Z09 Reassured patient that 3-4 weeks of bloody, brown discharge and pelvic pain is normal postop finding due to necrotic tissue passing.Re commended to use a hydrogen peroxide to cleanse vaginal discharge. Morbid obesity 034050825 E66.01 Tobacco user 107456512 Z 72.0 [id number] MD Lyndsay Marques (MECHANICAL SERVICE REPRESENTATIVE) [address] [place] [address] 08/20/2018 15:15:40 08/21/2018 11:22:09 Screening mammography 25659785 Z12.31 Administra tion of influenza vaccine 50146875 Z23 Dysmenorrhea 538264129 N 94.6 Family cindy nning surveillance 506398787 Z30.09 History of endometrial ablation 2253247616 38054 Z98.890 Endometrio sis of uterus 79516783 N80.0 Pt desires surgery. Needs second opinion. Offered medical treatment for pain History of female sterilization 964102455 Z92.0 Morbid obesity 478688284 E66.01 [id number] MD Lyndsay Marques (MECHANICAL SERVICE REPRESENTATIVE) [address] [place] [address] 09/19/2018 10:04:58 09/19/2018 13:05:12 Tobacco user 799498055 Z72.0 Morbid obesity 251654416 E66.01 Gastroesop hageal reflux disease without esophagitis 574547069 K21.9 History of female sterilization 785922709 Z92.0 Postoperative visit 1836 24726 Z09 performed on 09/06/18 History of hysterectomy 796645038 Z90.711 performed on 09/06/18. Pathology benign [id number] Radha Drake MD [facility] [address] [place] [address] 11/11/2019 12:21:59 11/12/2019 13:33:43 Tobacco user 266149712 Z72.0 - Patient is a current cigarette smoker, states she smokes 1-1.5 pk per day and currently has no desire to quit.- Patient advised in the derogatory effects of smoking- Counseling for smoking cessation completed Adult [facility] examination 306538842 Z00.00 - Discussed plan of care including treatment options, risks, and benefits with patients.- Patient expressed understand ing.- The following interventi ons were recommende d: heart healthy low-fat, low-sodium diet, ideal body weight, regular exercise, medication s compliance , and medical follow-up as noted. [id number] Radha Drake MD [facility] [address] [place] [address] 11/13/2019 09:49:29 11/13/2019 15:11:38 Tobacco user 964013086 Z72.0 - Patient is a current cigarette smoker, states she smokes 1-1.5 pk per day and currently has no desire to quit.- Patient advised in the derogatory effects of smoking- Counseling for smoking cessation completed Essential hypertension 00959990 I10 - b/p in office today 142/108 [...] - Patient expresses understand ing. 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 In the meantime, will check thyroid function and follow up as needed. [id number] Radha Drake MD [facility] [address] [place] [address] 02/26/2020 16:21:21 02/27/2020 06:29:02 Essential hypertension 61524793 I10 - Continue medication as prescribed and diet/exerc ise as previously discussed. - Take occasional BP s , call if consistent ly >140/90.- Discussed with patient need to come in to office for further evaluation of blood pressure- Discussed reasons for sooner f/u than 2 weeks. - Patient verbalizes understand ing. Tobacco user 970590296 Z 72.0 - Patient is a current cigarette smoker, states she smokes 1-1.5 pk per day and currently has no desire to quit.- Patient advised in the derogatory effects of smoking- Counseling for smoking cessation completed Prediabetes 422373403 R7 3.03 - A1c 8.0 on 11/12- Patient agreed to come in for an in office visit on 03/15- will repeat A1c [id number] Radha Drake MD [facility] [address] [place] [address] 03/15/2020 10:24:23 03/16/2020 06:10:41 Essential hypertension 29891908 I10 - b/p in office today 132/98- Continue medication as prescribed and diet/exerc ise as previously discussed. - Take occasional BP s , call if consistent ly >140/90. - Discussed reasons for sooner f/u than 2 weeks. - Patient verbalizes understand ing. 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 In the meantime, will check thyroid function and follow up as needed. Hyperlipidemia 42090855 E78.5 - Educated on risks factors, and healthy lifestyle. - Handout provided on lifestyle modificati ons .- Continue statin as prescribed , possible side-effec ts discussed with patient.- RTC in 4 months Administra tion of diphtheria, pertussis, and tetanus vaccine 992255485 Z23 - recommende d Tdap vaccinatio n Prediabetes 200842807 R7 3.03 - A1c 8.0 on 11/12- Patient agreed to come in for an in office visit on 03/15- will repeat A1c 10.4 Dyspnea on exertion 6084 5006 R06.09 - Patient with c/o shortness of breath with exertion Newly diag nosed diabetes 442216567 E10.9 - A1c 10.4 - Start Metformin - Educated on goal of blood sugars (A1C of < 7% and fasting of 80-130) and informatio n below. Postprandi al BG of less than 180. - Encouraged weight loss and diet changes. - Monitor BP with goal of <130/80. - Stop smoking. - Continue statin and next level due 6 months - Eye exam yearly and dentist regularly. - Next A1C due 3 months - RTC or call if blood sugars not controlled . - Check feet daily and notify PCP immediatel y of abnormalit y. - F/U in 3 months [id number] Radha Drake MD [facility] [address] [place] [address] 03/29/2020 15:56:08 03/30/2020 05:56:32 Essential hypertension 25421073 I10 - b/p in office today 124/90- Continue medication as prescribed and diet/exerc ise as previously discussed. - Take occasional BP s , call if consistent ly >140/90. - Discussed reasons for sooner f/u than 3 months. - Patient verbalizes understand ing. Tobacco user 739211059 Z 72.0 - Patient is a current cigarette smoker, states she smokes 1.5- 2 pk per day and currently has no desire to quit.- Patient advised in the derogatory effects of smoking- Counseling for smoking cessation completed Administra tion of pneumococcal vaccine 98412412 Z23 - recommende d annual pneumococc al vaccinatio n Newly diag nosed diabetes 955063775 E10.9 - A1c 10.4 - Increased metformin - Educated on goal of blood sugars (A1C of < 7% and fasting of 80-130) and informatio n below. Postprandi al BG of less than 180. - Encouraged weight loss and diet changes. - Monitor BP with goal of <130/80. - Stop smoking. - Continue statin and next level due 6 months - Eye exam yearly and dentist regularly. - Next A1C due 3 months - RTC or call if blood sugars not controlled . - Check feet daily and notify PCP immediatel y of abnormalit y. - F/U in 3 months [id number] Radha Drake MD [facility] [address] [place] [address] 06/28/2020 16:13:52 06/29/2020 16:24:08 Candidiasis of vagina 12566479 B37.3 - Take your medicines exactly as prescribed - Do not scratch. Relieve itching with a cold pack or a cool bath- Do not have sex until you have finished your treatment- RTC if you are not getting better after 2 days, or your symptoms return after finishing your medication Essential hypertension 11172682 I10 - Continue medication as prescribed and diet/exerc ise as previously discussed. - Take occasional BP s , call if consistent ly >140/90. - Discussed reasons for sooner f/u than 3 months. - Patient verbalizes understand ing. Uncontroll ed type 2 diabetes mellitus 660490920 E11.65 - Educated on goal of blood sugars (A1C of 7% and fasting of 80-130) and informatio n below. Postprandi al BG of less than 180. - Encouraged weight loss and diet changes. - Monitor BP with goal of <130/80. - Stop smoking. - Continue statin and next level due 1 month - Eye exam yearly and dentist regularly. - Next A1C due 1 month - RTC or call if blood sugars not controlled . - Check feet daily and notify PCP immediatel y of abnormalit y. - F/U in 1 month [id number] Radha Drake MD [facility] [address] [place] [address] 02/08/2021 10:06:56 02/09/2021 18:52:43 Essential hypertension 38381521 I10 - b/p in office today 108/72- Continue medication as prescribed and diet/exerc ise as previously discussed. - Take occasional BP s , call if consistent ly >140/90.- Discussed reasons for sooner f/u than 6 months.- Patient verbalizes understand ing. Hyperlipidemia 33439244 E78.5 - Educated on risks factors, and healthy lifestyle. - Handout provided on lifestyle modificati ons .- Continue statin as prescribed , possible side-effec ts discussed with patient.- RTC in 4 months Uncontroll ed type 2 diabetes mellitus 714238578 E11.65 - Educated on goal of blood sugars (A1C of 7% and fasting of 80-130) and informatio n below. Postprandi al BG of less than 180. - Encouraged weight loss and diet changes. - Monitor BP with goal of <130/80. - Stop smoking. - Continue statin and next level due 6 months - Eye exam yearly and dentist regularly. - Next A1C due 4 month - RTC or call if blood sugars not controlled . - Check feet daily and notify PCP immediatel y of abnormalit y. - F/U in 4 month Tobacco user 526853168 Z 72.0 - Patient is a current cigarette smoker, states she smokes 1.5 pk per day and currently has no desire to quit.- Patient advised in the derogatory effects of smoking- Counseling for smoking cessation completed Positive s creening for depression on PHQ-9 (Patient Health Questionnaire 9) 6708731375 07167 Z13.89 - Discussed symptoms of depression /anxiety as well as the different treatment types.- Pt is to monitor symptoms and RTC sooner if symptoms are worsening or not improving. [id number] KOBY WATKINS (MECHANICAL SERVICE REPRESENTATIVE) [address] [place] [address] 03/08/2021 09:40:04 03/16/2021 14:20:31 Mass of right breast 2932488054 3046236 N63.10 Small 0.5cm mass palpated at 8 o'clock position lateral to R areola. Mobile, non-tender . No mammogram in the past. Will proceed w/ diagnostic mammogram and US if needed. [id number] MD Anthony Connors 14 IM [address] [facility] [address] [place] [address] 08/16/2021 08:07:01 08/29/2021 14:10:09 Essential hypertension 91488750 I10 - last recorded b/p 126/76 on 02/16/21- Continue medication as prescribed and diet/exerc ise as previously discussed. - Take occasional BP s , call if consistent ly >140/90.- Discussed reasons for sooner f/u than 6 months.- Patient verbalizes understand ing. Uncontroll ed type 2 diabetes mellitus 367457717 E11.65 - Educated on goal of blood sugars (A1C of 7% and fasting of 80-130) and informatio n below. Postprandi al BG of less than 180. - Encouraged weight loss and diet changes. - Monitor BP with goal of <130/80. - Stop smoking. - Continue statin and next level due 6 months - Eye exam yearly and dentist regularly. - Next A1C due 4 month - RTC or call if blood sugars not controlled . - Check feet daily and notify PCP immediatel y of abnormalit y. - F/U in 4 month [id number] Radha Drake MD [facility] [address] [place] [address] 04/18/2022 11:13:21 04/24/2022 11:01:50 Essential hypertension 05715754 I10 - b/p in office today 120/80- Continue medication as prescribed and diet/exerc ise as previously discussed. - Take occasional BP s , call if consistent ly >140/90.- Discussed reasons for sooner f/u than 6 months.- Patient verbalizes understand ing. Uncontroll ed type 2 diabetes mellitus 053807303 E11.65 - Educated on goal of blood sugars (A1C of 7% and fasting of 80-130) and informatio n below. Postprandi al BG of less than 180. - Encouraged weight loss and diet changes. - Monitor BP with goal of <130/80. - Stop smoking. - Continue statin and next level due 6 months - Eye exam yearly and dentist regularly. - Next A1C due 3 months - RTC or call if blood sugars not controlled . - Check feet daily and notify PCP immediatel y of abnormalit y. - F/U in 3 months Tobacco user 608141835 Z 72.0 - Patient is a current cigarette smoker, states she smokes 1.5 pk per day and currently has no desire to quit.- Patient advised in the derogatory effects of smoking- Counseling for smoking cessation completed Dislocatio n of patellofemoral joint 960911521 S83.005A - Per patient seen in ER for dislocated left knee on 04/12. Currently non weight bearing Referred to ortho by ER provider. Patient states she has not seen ortho yet. Will request ER rerecords from [facility] Morbid obesity 476839927 E66.01 advised low fat, low cholestero l, low carb diet, regular exercise and weight reduction. [id number] Teofilo Bañuelos MD [facility] [address] [place] [address] 07/25/2022 10:51:54 07/26/2022 10:39:43 Essential hypertension 15120545 I10 - b/p in office today 126/78- Continue medication as prescribed and diet/exerc ise as previously discussed. - Take occasional BP s , call if consistent ly >140/90.- Discussed reasons for sooner f/u than 6 months.- Patient verbalizes understand ing. Uncontroll ed type 2 diabetes mellitus 650213442 E11.65 - Educated on goal of blood sugars (A1C of 7% and fasting of 80-130) and informatio n below. Postprandi al BG of less than 180. - Encouraged weight loss and diet changes. - Monitor BP with goal of <130/80. - Stop smoking. - Continue statin and next level due 6 months - Eye exam yearly and dentist regularly. - Next A1C due 3 months - RTC or call if blood sugars not controlled . - Check feet daily and notify PCP immediatel y of abnormalit y. - F/U in 3 months Viral uppe r respiratory tract infection 697614615 J06.9 Patient will go for flu and covid test [id number] Teofilo Bañuelos MD [facility] [address] [place] [address] 02/02/2023 14:10:21 02/05/2023 09:36:47 Uncontrolled type 2 diabetes mellitus 875585852 E11.65 - Educated on goal of blood sugars (A1C of 7% and fasting of 80-130) and informatio n below. Postprandi al BG of less than 180. - Encouraged weight loss and diet changes. - Monitor BP with goal of <130/80. - Stop smoking. - Continue statin and next level due 6 months - Eye exam yearly and dentist regularly. - Next A1C due 3 months - RTC or call if blood sugars not controlled . - Check feet daily and notify PCP immediatel y of abnormalit y. - F/U in 3 months Essential hypertension 25577935 I10 - b/p in office today 126/78- Continue medication as prescribed and diet/exerc ise as previously discussed. - Take occasional BP s , call if consistent ly >140/90.- Discussed reasons for sooner f/u than 6 months.- Patient verbalizes understand ing. Tobacco user 569722407 Z 72.0 - Patient is a current cigarette smoker, states she smokes 1.5 pk per day and currently has no desire to quit.- Patient advised in the derogatory effects of smoking- Counseling for smoking cessation completed Hyperlipidemia 85090346 E78.5 - Educated on risks factors, and healthy lifestyle. - Handout provided on lifestyle modificati ons .- Continue statin as prescribed , possible side-effec ts discussed with patient.- RTC in 4 months Urinary symptoms 1920571 08 R39.9 Insomnia 173703191 G47.0 0 - Take bedtime medication before or at 10 PM- Avoid anything that will energize you or activate you- Sleep 6-8 hours a night (this is when short-term memory turns into long-term memory) Pain of bi lateral hands 4775023415 2494800 M79.641 M79.642 Obesity 605344551 E66.9 advised low fat, low cholestero l, low carb diet, regular exercise and weight reduction. [id number] ARGENIS PUCKETT NP [facility] [address] [place] [address] 11/15/2023 15:21:57 11/28/2023 14:18:58 Essential hypertension 57903340 I10 - b/p in office today 134/91- Continue medication as prescribed and diet/exerc ise as previously discussed. - Take occasional BP s , call if consistent ly >140/90.- Discussed reasons for sooner f/u than 6 months.- Patient verbalizes understand ing. Tobacco user 749893700 Z 72.0 - Patient is a current cigarette smoker, states she smokes 1.5 pk per day and currently has no desire to quit.- Patient advised in the derogatory effects of smoking- Counseling for smoking cessation completed [facility] ed type 2 diabetes mellitus 691309858 E11.65 - Dr. Lock following and managing care. Bilateral tinnitus 68670 64868 102 H93.13 Hyperlipidemia 35167882 E78.5 - Educated on risks factors, and healthy lifestyle. - Handout provided on lifestyle modificati ons .- Continue statin as prescribed , possible side-effec ts discussed with patient.- RTC in 4 months Obesity 895739906 E66.9 advised low fat, low cholestero l, low carb diet, regular exercise and weight reduction. [id number] Teofilo Bañuelos MD [facility] [address] [place] [address] 06/30/2024 16:25:52 07/07/2024 14:49:00 Obesity 704781063 E66.9 advised low fat, low cholestero l, low carb diet, regular exercise and weight reduction. Essential hypertension 96184402 I10 - b/p in office today 146/92- Continue medication as prescribed and diet/exerc ise as previously discussed. - Take occasional BP s , call if consistent ly >140/90.- Discussed reasons for sooner f/u than 6 months.- Patient verbalizes understand ing. Uncontroll ed type 2 diabetes mellitus [id number] E11.65 - Dr. Ulloa following 6.4 A1c Sept 14 Localized eruption of skin [id number] R21 Screening for malignant neoplasm of colon [id number] Z12.11 Screening mammography 24 [id number] Z12.31 Goals Section Goal Description Progress Status [...] Diet Adherence Follows prescribed or [facility] Rubi Phan LPN Information not available 12/06/2023 16:16:25 Smoking Cessation Quits smoking NoCadelaida active 2023 Rubi Phan LPN Information not available 12/06/2023 16:13:45 Blood Pressure Maintains blood pressure goal as defined by care team Zackary active 2023 Rubi Phan LPN Information not available 12/06/2023 16:13:19 Medication Regimen Follows medication regimen as per care team recommendati on(s) NoCadelaida active 2023 Rubi Phan LPN Information [...] Available 16:16:25 Advance Directives Directive N: Payers Insurance Date Sequence Insurance Name Policy Number Policy [place]jo Covered Member ID Naranjo Member ID Guarantor Name 01/19/2025 1 [facility] [id number] Miriam Silva [id number] Miriam Silva 06/25/2024 2 [facility] [id number] Miriam Silva [id number] Miriammanohar Silva 11/28/2023 2 [id number] Miriam Silva [id number] Miriammanohar Silva 08/15/2021 SLIDING FEE SCHEDULE - DISCOUNT Miriammanohar Silva 03/08/2021 SLIDING FEE SCHEDULE - DISCOUNT Miriammanohar Silva 04/18/2022 1 *SELF PAY* Dillan soniyamanohar Silva 11/13/2019 SLIDING FEE SCHEDULE - DISCOUNT Miriammanohar Silva 02/02/2023 SLIDING FEE SCHEDULE - DISCOUNT Miriammanohar Silva 11/28/2023 1 MED[place]: [place] [employer] Miriam Silva [id number] Miriammanohar Silva 11/19/2024 2 [facility] [id number] Miriammanohar Silva [id number] Miriam Silva 11/28/2023 1 [facility] - DOS PRIOR TO 2021 (MEDICAID REPLACEMENT - HMO) Miriam Silva [id number] Miriam Silva Notes Date Note Type Note Provider Name and Address Organization Details Recorded Time 2 text/html Diabetes F/UReported by PatientHPIFor context, patient reportsnot seeing eye doctor yearlyandmissing doses of medication. For labs, patient reportslast a1c result: 9.0. For associated symptoms, patient reportsno dizziness,no headaches,no numbness of feet, andno calluses on feet. Hypertension F/UReported by PatientHPIFor associated symptoms, patient reportsno dizziness,no lightheadedness,no chest pain,no shortness of breath,no palpitations, andno edema. For medications, patient reportstaking medications as directed.ROS as noted in the HPI Ms. Silva presented in office today for f/u appointment. The patient states she went to [facility] on 04/12/22 with a dislocated knee. The [...] would need to be cleared by an software implementation specialist. The patient expressed her understanding. ARGENIS PUCKETT NP Attn: Accounting,[address] [facility], [place], [address], [facility] 04/21/2022 14:38:13 3 text/html Diabetes F/UReported by PatientHPIFor context, patient reportshome blood sugar range high. For labs, patient reportslast a1c result: 9.6. Upper Respiratory SymptomsReported by PatientUpper Respiratory SymptomsFor quality, patient reportsproductive cough,colored phlegm, andcongested. For context, patient reportssick contactandsmokerbut reportsno foreign travel. For associated symptoms, patient reportsyellow sputumandmorning coughbut reportsno shortness of breath,no wheezing,no change in number of pillows needed to sleep at night,no sweats,no fever,no significant weight gain,no significant weight loss,no vomiting,no diarrhea,no rash, andno nausea. For location, patient reportshead,chest, andthroat. For severity, patient reportsmoderate. For onset/timing, patient reportsgradual. For modifying factors, patient reportsotc medication (zicam).ROS as noted in the HPI Ms. Silva presented in office today for f/u appointment. Patient c/o cough, head and chest congestion x 1 week. Patient states she has not been tested for COVID or FLU. ARGENIS PUCKETT NP Attn: Accounting, [facility], [place], [address], [facility] 07/25/2022 14:33:40 3 text/html InsomniaReported by PatientHPIFor severity, patient reportsworsening. For associated symptoms, patient reportsgeneralized pain. For duration, patient reportsfrequent. Hypertension F/UReported by PatientHPIFor associated symptoms, patient reportsno dizziness,no lightheadedness,no chest pain,no shortness of breath,no palpitations, andno edema. For medications, patient reportstaking medications as directed. Diabetes F/UReported by PatientHPIFor context, patient reportshome blood sugar range high. For labs, patient reportslast a1c result: 10.1 (07/25/2022). For associated symptoms, patient reportsno numbness of feetandno calluses on feet. Hand/FingersReported by PatientHPIFor location, patient reportsbilateral (thumbs). For quality, patient reportsaching,throbbing, andworsening. For alleviating factors, patient reportsnothing helps. For aggravating factors, patient reportsgripping,grasping ,squeezing, androm.ROS as noted in the HPI Ms Silva presented in office today for f/u appointment. The patient has a number of complaints, including uti symptoms, bilateral hand pain, and difficulties sleeping. ARGENIS PUCKETT NP Attn: Accounting,[address] [facility], [place], [address], [facility] 02/02/2023 15:35:45 4 text/html Hypertension F/UReported by PatientHPIFor associated symptoms, patient reportsno dizziness,no lightheadedness,no chest pain,no shortness of breath,no palpitations, andno edema. For medications, patient reportstaking medications as directedandno side effects from medication. Diabetes F/UReported by PatientHPIFor labs, patient reportslast a1c result: 7.8 (08/10/23).ROS as noted in the HPI Ms. Silva presented in office today for follow up appointment. The patient complained of ringing in both ears. ARGENIS PUCKETT NP Attn: Accounting, [address] [facility], [place], [address], [facility] 11/27/2023 15:21:30 4 text/html Diabetes F/UReported by PatientHPIFor labs, patient reportslast a1c result: 6.4 (03/29/2024). For context, patient reportsnot missing doses of medicationsandno side effects from medications. Hypertension F/UReported by PatientHPIFor associated symptoms, patient reportsno dizziness,no lightheadedness,no chest pain,no shortness of breath,no palpitations, andno edema. For medications, patient reportstaking medications as directedandno side effects from medication.ROS as noted in the HPI Ms. Silva presents for a follow-up visit [...] or fatigue are reported. She has tried [id number] creams with minimal relief. No history of similar rashes elsewhere on the body. No recent travel, insect bites, or exposure to new environments. ARGENIS PUCKETT NP Attn: Accounting,[address] [facility], [place], [address], [facility] 07/07/2024 08:03:58 OBGyn Episode Ob Episode Information Episode Created Date Number of Fetuses Patient Bloodtype Patient rh Status Prepregnancy Weight lbs Domestic Partner Domestic Partner Phone Father Name Fatback Trimmer Status 10/25/19 18 1 CLOSED Fetus Data First Name Last Name Admitted to NICU Weight (g) Sex Living Outcome Pediatric Complications Fetus ID Race Codes Race Delivery Type F Full Term [id number] Vaginal Lamberto Calculation Initial Lamberto Date Initial [...] Domestic Partner Domestic Partner Phone Father Name Fatback Trimmer Status 10/25/19 18 1 CLOSED Fetus Data First Name Last Name Admitted to NICU Weight (g) Sex Living Outcome Pediatric Complications Fetus ID Race Codes Race Delivery Type M Full Term 10119 Vaginal Lamberto Calculation Initial Lamberto Date Initial [...] Domestic Partner Domestic Partner Phone Father Name Fatback Trimmer Status 10/25/19 18 1 CLOSED Fetus Data First Name Last Name Admitted to NICU Weight (g) Sex Living Outcome Pediatric Complications Fetus ID Race Codes Race Delivery Type M Full Term [id number] Vaginal Lamberto Calculation Initial Lamberto Date Initial [...]
== END 2025-04-20 15:05 | disposition home or self-care (01) ==
PROVIDERS: Emergency Provider Nurse Practitioner
DX: S93.601A Unspecified sprain of right foot, initial encounter (principal); X50.1XXA Overexertion from prolonged static or awkward postures, initial encounter; Y93.9 Activity, unspecified; Y99.0 Civilian activity done for income or pay; F17.210 Nicotine dependence, cigarettes, uncomplicated; I10 Essential (primary) hypertension; E11.9 Type 2 diabetes mellitus without complications; Z79.4 Long term (current) use of insulin; Z79.85 Long-term (current) use of injectable non-insulin antidiabetic drugs; K21.9 Gastro-esophageal reflux disease without esophagitis; M19.90 Unspecified osteoarthritis, unspecified site; Z86.16 Personal history of COVID-19
CPT/HCPCS: 73630; 99213; G0463